=== PATIENT | female | born 1975 | race Caucasian/White ===

== ENCOUNTER → 2019-08-17 12:22 | Outpatient (BNVA) | payer MEDICARE, SELFPAY | PROVIDERS: Family Provider Nurse Practitioner; PCP Nurse Practitioner; Visit Provider Nurse Practitioner | DX: S99.921A Unspecified injury of right foot, initial encounter (principal); W10.8XXA Fall (on) (from) other stairs and steps, initial encounter | CPT/HCPCS: 73630 ==

== ENCOUNTER 2019-10-28 23:24 | Emergency (ER) | payer MEDICARE, SELFPAY ==
[2019-10-28 23:26] VITALS: BP 128/84; PULSE 88; RESP 18; TEMP 37; O2SAT 96; BMI 29.6
--- NOTE | 2019-10-28 23:26 | XR_ITS ---
WS: [id number] XR chest 1V portable [id number] REASON FOR EXAM: CHEST DISCOMFORT FINDINGS: The heart mediastinum were normal. The lung gil are well aerated. No pneumonia, pleural effusion, pulmonary edema, no evidence of pne umothorax. The hilum and apices normal. XR/XR chest 1V portable [id number] IMPRESSION: Negative chest for active pathology.
--- NOTE | 2019-10-28 23:26 | ECG_ITS ---
Measurements Intervals [place] Rate: 78 P: 45 MD: 161 QRS: 48 QRSD: 89 T: 48 QT: 397 QTc: 453 SINUS RHYTHM No previous ECG available for comparison Electronically Signed On 10-29-2019 8:46:09 CDT by Chyna Fisher [email or web address]
--- NOTE | 2019-10-28 23:26 | PC.NURSE ---
PATIENT STATES SHE WAS AT HOME WHEN HER CHEST STARTED TINGLING. PATIENT STATES THAT THIS HASN'T HAPPENED BEFORE. PATIENT STATES THE TINGLING IS BILATERAL ACROSS HER CHEST. PATIENT STATES THAT SHE HAS NO PAIN
--- NOTE | 2019-10-28 23:28 | ED_ITS ---
Entered by Debora Birmingham, acting as scribe for Marialuisa Benjamin HPI - Chest Pain General: Chief Complaint: General Medical Stated Complaint: CHESET TINGLING Time Seen by Provider: 10/28/19 23:26 Source: patient Mode of arrival: EMS ([facility] ) Limitations: no limitations History of Present Illness: HPI narrative: 44 yo f came to the er by [facility] for chest tingling. 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 Pt states that she has been having these episodes where the pain starts in her chest and then it expands. Pt said that she has had 3-4 episodes. Pt said that she was setting at home relaxing. Pt had gotten nauseated but has not had any difficulty breathing and sweats. 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) Timing of current episode: episodic and now resolved Prior episodes: Yes Onset: during rest Pain location: substernal Pain radiation: other (throughout) Quality: other (tingling) Relieving factors: nothing Exacerbating factors: nothing Associated symptoms: Deny abdominal pain, diaphoresis, dyspnea, fever(s), nausea or vomiting Treatment prior to arrival: none Risk Factors: Coronary artery disease risk factors: none Thoracic aortic dissection risk factors: none Related Data: On Oral Contraceptives: No Review of Systems General: Reports: other (negative unless marked) Const: Denies: fever, chills, body aches, fatigue, malaise or diaphoresis Eyes: Denies: change in vision or blurry vision ENMT: Denies: throat pain, painful swallowing, hoarseness, ear pain, ear discharge, Change in hearing or nasal discharge Card: Reports: chest pain Resp: Denies: shortness of breath, productive cough, non-productive cough, wheezing, coughing up blood or chest congestion GI: Denies: abdominal pain, nausea, vomiting, vomiting blood, coffee grounds in vomit, diarrhea, constipation, cramping, blood in stool or black tarry stool : Denies: flank pain, painful urination, urinary frequency, urinary urgency, decreased urine ouput, urinary incontinence or blood in urine Musc: Denies: neck pain, back pain, extremity pain, extremity swelling, joint pain, joint swelling, joint warmth or joint stiffness Skin/Breast: Denies: rash, skin tenderness or yellow skin Neuro: Denies: headache, numbness in extremities, weakness in extremities, changes in sensation, lack of coordination, difficulty walking, dizziness, vertigo or confusion Endo: Denies: excessive thirst, tired all the time, cold intolerance, excessive sweating, flushing or hot flashes Bravo/Lymph: Denies: easy bruising, easy bleeding, petechiae or enlarged lymph nodes All/Imm: Denies: hives, throat swelling, tongue swelling, facial swelling or acute wheezing PFSH ED PFSH: Social History Smoking and tobacco status: current every day smoker cigarettes Physical Exam Const: COMMON NORMALS: no apparent distress, oriented x3, no limitations, healthy appearing and well nourished EXAM LIMITATIONS: no altered mental status GENERAL APPEARANCE: cooperative, well kempt and well developed ORIENTATION/CONSCIOUSNESS: Yes awake HENMT: COMMON NORMALS: normocephalic, head/scalp atraumatic, hearing grossly normal bilaterally, external ears normal, EAC's normal, external nose normal and moist oral mucous membranes HEAD & SCALP: normal to inspection, normocephalic and atraumatic FACE & SINUS: normal facial exam and face symmetric NOSE: external nose normal and nares normal EXTERNAL EAR: Yes external ears normal EXTERNAL AUDITORY CANAL: EAC's normal MOUTH: oral and palatal mucosa normal and tongue normal Eye: COMMON NORMALS: PERRL, EOMs intact bilaterally, conjunctivae normal and no scleral icterus GENERAL EYE: normal appearance of both eyes and normal light reflex CONJUNCTIVA: Yes conjunctivae normal SCLERA: sclerae normal CORNEA: Yes corneas normal PUPIL: Yes PERRL DIRECT OPHTHALMOSCOPY: Yes normal light reflex Neck/C-Spine: COMMON NORMALS: full ROM, no lymphadenopathy, supple, no meningeal signs and no JVD GENERAL: Yes normal visual inspection and Yes t rachea midline CERVICAL SPINE: Yes cervical ROM normal Chest: COMMONS NORMALS: inspection of chest normal and palpation of chest normal Resp: COMMON NORMALS: normal respiratory effort, no retractions, no use of accessory muscles and clear to auscultation bilaterally EFFORT & INSPECTION: Yes able to speak in complete sentences AUSCULTATION: clear to auscultation bilaterally Cardio: COMMON NORMALS: no JVD, regular rate, regular rhythm, S1 normal heart sound, S2 normal heart sound, no gallops, no clicks, no murmurs and no rub JUGULAR VENOUS DISTENTION: no JVD RATE: regular rate RHYTHM: regular rhythm HEART SOUNDS: S1 normal and S2 normal GI: COMMON NORMALS: soft to palpation, non-tender, no hepatosplenomegaly and no masses INSPECTION: Yes normal to inspection PALPATION: Yes soft and Yes no hepatosplenomegaly : COMMON NORMALS: Yes no CVA tenderness BLADDER/KIDNEY EXAM: Yes no CVA t enderness Back/Pelvis: COMMON NORMALS: no CVA tenderness, thoracic and lumbar spine normal to inspection, no thoracic nor lumbar tenderness and thoraco-lumbar ROM normal Extremity: COMMON NORMALS: normal to inspection, full ROM, normal capillary refill, no joint enlargement, no clubbing, cyanosis or edema and no calf tenderness Neuro: COMMON NORMALS: oriented x3, CN's II-XII intact bilaterally, moves all extremities, no focal motor deficits and no sensory deficits noted MENINGEAL SIGNS: Yes no meningeal signs Psych: COMMON NORMALS: mental status grossly normal, thought process normal, cooperative, affect normal, speech normal and activity/motor behavior normal APPEARANCE: Yes well kempt SPEECH: Yes normal speech THOUGHT PROCESS: normal thought process Skin: COMMON NORMALS: no rashes or lesions noted, skin turgor normal, no jaundice, no petechiae and no mottling GENERAL SKIN EXAM: no rashes or lesions noted and turgor normal Course Vital Signs: Vital signs: Vital Signs Temperature 98.6 F 10/28/19 23:26 Pulse Rate 71 10/29/19 02:02 Respiratory Rate 16 10/29/19 02:02 Blood Pressure 115/74 10/29/19 02:02 Pulse Oximetry 95 10/29/19 02:02 MDM - Chest Pain MDM Narrative: Medical decision making narrative: Patient is feeling better and is ready to go home. She has had no further episodes here. I see no sign of stroke, acute coronary syndrome, pneumothorax, infectious etiology or other cause for her symptoms. She does agree to return should her symptoms change or worsen but at this time she is feeling better and she is requesting to be discharged. Lab Data: Attestation: I reviewed the patient's lab results. Labs: Lab Results 10/28/19 10/28/19 10/28/19 Range/Units 23:42 23:42 23:42 WBC 12.6 H (4.0-10.0) 10^3/ uL RBC 4.30 (4.1-5.3) 10^6/u L Hgb 14.3 (11.5-15.3) g/dL Hct 42.9 (37.0-47.0) % MCV 99.8 H (81-99) fL MCH 33.3 (28.0-34.0) pg MCHC 33.3 (30.0-36.0) g/dL RDW 13.4 (12.1-15.1) % Plt Count 278 (130-400) 10^3/c mm MPV 10.4 (7.4-10.4) fL Neut % (Auto) 70.7 % Lymph % (Auto) 20.5 % [place] % (Auto) 7.1 % Eos % (Auto) 0.9 % Baso % (Auto) 0.4 % Neut # (Auto) 8.9 H (1.8-7.7) 10^3/u L Lymph # (Auto) 2.6 (0.8-4.8) 10^3/u L [place] # (Auto) 0.9 (0.2-0.9) 10^3/u L Eos # (Auto) 0.1 (0.0-0.8) 10^3/u L Baso # (Auto) 0.1 (0.0-0.1) 10^3/u L Nucleated RBC % (a uto) 0 % Nucleated RBCs # 0.0 /100WBC Sodium 140 (136-145) mmol/L Potassium 3.5 (3.5-5.1) mmol/L Chloride 105 (98-107) mmol/L Carbon Dioxide 22 (22-29) mmol/L Anion Gap 16.5 (5-19) BUN 6 (6-20) mg/dL Creatinine 0.7 (0.5-0.9) mg/dL GFR Calculation 90.1 (90-130) mL/min Glucose 122 H (65-115) mg/dL Calculated Osmolal ity 287 (285-295) mOsm/k g Calcium 9.7 (8.5-10.5) mg/dL Total Bilirubin 0.2 (0.15-1.2) mg/dL AST 11 (0-32) U/L ALT 11 (0-33) U/L Alkaline Phosphata se 105 (35-105) IU/L Troponin T Baselin e 6 (0-10) ng/mL Troponin T 120 Min [place] (0-10) ng/mL Total Protein 7.5 (6.6-8.7) g/dL Albumin 4.5 (3.5-5.2) g/dL Globulin 3.0 (1.3-4.6) g/dL Lipase 27 (13-60) U/L HCG, Qual (Negative) Urine Opiates Scre en (Negative) ng/mL Ur Barbiturates Sc reen (Negative) ng/mL Ur Phencyclidine S crn (Negative) ng/mL Ur Amphetamines Sc reen (Negative) ng/mL U Benzodiazepines Scrn (Negative) ng/mL Urine Cocaine Scre en (Negative) ng/mL U Marijuana (THC) Screen (Negative) ng/mL Ethyl Alcohol < 10 (0-10) mg/dL 10/28/19 10/29/19 10/29/19 Range/Units 23:42 00:05 01:24 WBC (4.0-10.0) 10^3/ uL RBC (4.1-5.3) 10^6/u L Hgb (11.5-15.3) g/dL Hct (37.0-47.0) % MCV (81-99) fL MCH (28.0-34.0) pg MCHC (30.0-36.0) g/dL RDW (12.1-15.1) % Plt Count (130-400) 10^3/c mm MPV (7.4-10.4) fL Neut % (Auto) % Lymph % (Auto) % [place] % (Auto) % Eos % (Auto) % Baso % (Auto) % Neut # (Auto) (1.8-7.7) 10^3/u L Lymph # (Auto) (0.8-4.8) 10^3/u L [place] # (Auto) (0.2-0.9) 10^3/u L Eos # (Auto) (0.0-0.8) 10^3/u L Baso # (Auto) (0.0-0.1) 10^3/u L Nucleated RBC % (a uto) % Nucleated RBCs # /100WBC Sodium (136-145) mmol/L Potassium (3.5-5.1) mmol/L Chloride (98-107) mmol/L Carbon Dioxide (22-29) mmol/L Anion Gap (5-19) BUN (6-20) mg/dL Creatinine (0.5-0.9) mg/dL GFR Calculation (90-130) mL/min Glucose (65-115) mg/dL Calculated Osmolal ity (285-295) mOsm/k g Calcium (8.5-10.5) mg/dL Total Bilirubin (0.15-1.2) mg/dL AST (0-32) U/L ALT (0-33) U/L Alkaline Phosphata se (35-105) IU/L Troponin T Baselin e (0-10) ng/mL Troponin T 120 Min [place] 6.00 (0-10) ng/mL Total Protein (6.6-8.7) g/dL Albumin (3.5-5.2) g/dL Globulin (1.3-4.6) g/dL Lipase (13-60) U/L HCG, Qual Negative (Negative) Urine Opiates Scre en Negative (Negative) ng/mL Ur Barbiturates Sc reen Negative (Negative) ng/mL Ur Phencyclidine S crn Negative (Negative) ng/mL Ur Amphetamines Sc reen Negative (Negative) ng/mL U Benzodiazepines Scrn Negative (Negative) ng/mL Urine Cocaine Scre en Negative (Negative) ng/mL U Marijuana (THC) Screen Positive H (Negative) ng/mL Ethyl Alcohol (0-10) mg/dL Imaging Data^: CT Head: Radiologist's impression: [address] [address] [address] Scan Report Signed Patient: Amber Alvarez #: [id number] : 1975Acct#:[id number] Age/Sex: 44 / FADM Date: 10/28/19 Loc: ERRoom/Bed: Attending Dr: Ordering Provider/Ordering MD: Marialuisa Benjamin DO Date of Service: 10/28/19 Procedure(s): CT head wo con* [id number] Accession Number(s): [id number] Report Number: [id number] PROCEDURE INFORMATION: Exam: CT Head Without Contrast Exam date and time: 10/28/2019 11:36 PM Age: 44 years old Clinical indication: Pain; Altered mental status/memory loss; Headache not specified; Additional info: [place]/ams TECHNIQUE: Imaging protocol: Computed tomography of the head without contrast. Total DLP: 817.63 mGy-cm Radiation optimization: All CT scans at this facility use at least one of these dose optimization techniques: automated exposure control; mA and/or kV adjustment per patient size (includes targeted exams where dose is matched to clinical indication); or iterative reconstruction. COMPARISON: No relevant prior studies available. FINDINGS: Brain: No acute intracranial hemorrhage or mass effect. No definite acute infarct by CT. MRI could be more sensitive/specific for detection, as clinically directed. Ventricles: Ventricle size is normal for age. Bones/joints: No definite acute skull fracture. Sinuses: Included paranasal sinuses are essentially clear. Mastoid air cells: No significant acute finding. CT/CT head wo con* [id number] IMPRESSION: 1. No acute intracranial hemorrhage or mass effect. 2. No definite acute infarct by CT, see above. 3. Other findings discussed above. Radiation Dose CTDIVOL = (mGy): DLP = 817.63 (mGy-cm) Dictated By:Toy See MD Signed By:Toy Seeigned Date/Time:10/29/19103 DD/ 1 EKG Data^: EKG 1: Attestation: I personally reviewed and interpreted this EKG as follows: EKG interpretation date: 10/29/19 EKG interpretation time: 23:56 Interpretation: Normal sinus rhythm at 78 beats a minute, no acute ST-T wave changes, normal intervals, no blocks. EKG 2: Attestation: I personally reviewed and interpreted this EKG as follows: EKG interpretation date: 10/29/19 EKG interpretation time: 01:24 Interpretation: Normal sinus rhythm at 73 beats a minute, normal intervals, no blocks, no acute ST or T wave changes. Discharge Plan Discharge Patient Disposition: Home, Self-Care Clinical Impression: Paresthesias Chest pain Qualifiers: Chest pain type: unspecified Qualified Code(s): R07.9 - Chest pain, unspecified Condition: Stable Prescriptions: No Action azithromycin 250 mg tablet See Rx Instructions PO .COMPLEX Qty: 6 RF: 0 albuterol sulfate 2.5 mg /3 mL (0.083 %) solution for nebulization 2.5 mg INHALATION Q4H PRN (Reason: shortness of breath or wheezing) Qty: 75 RF: 0 atenolol 50 mg tablet 50 mg PO BID RF: 0 sertraline 100 mg tablet 100 mg PO QAM RF: 0 ezetimibe [Zetia] 10 mg tablet 10 mg PO ONCE RF: 0 gabapentin 100 mg capsule 300 mg PO ONCE RF: 0 atorvastatin 20 mg tablet 20 mg PO ONCE RF: 0 quetiapine 300 mg tablet 600 mg PO DAILY RF: 0 levothyroxine 112 mcg capsule 112 mcg PO ONCE RF: 0 potassium chloride 10 mEq capsule, extended release 10 meq PO ONCE RF: 0 ntjehadeig-hzhjffpewl-pah-cod [id number] mg capsule 1 cap PO Q4H PRNRF: 0 Discharge Orders: Discharge Order (Routine); Ordered 10/29/19 Ordered By: Marialuisa Benjamin Referrals: Karly Stein FNP [Primary Care Provider] - 1-3 days Discharge Diet: Advance as tolerated Discharge Activity: Increase activity as tolerated Patient Instructions: Chest Pain (ED) Activity Restrictions/Additional Instructions: Please return to the ER immediately for any of the signs or symptoms listed on your discharge instruction sheets, worsening/changing of your symptoms, you are not getting better as quickly as expected, or for ANY other cause or concerns. You have been offered further evaluation and care of your chest pain but have declined. If your symptoms change or worsen you are more than welcome to return to the ER at any time for further evaluation and care. Be certain to follow-up with your primary care provider as soon as possible for recheck. Coding Level of Care Code ED Hand Plug Shaper for Chg Fwd Exam Comprehensive The documentation recorded by the Vinnie garcía Stephanie Lyn, accurately reflects the service I personally performed and the decisions made by Sourav aguilar Eli N Oct 28, 2019 23:24
[2019-10-28] MEDS: aspirin 81 mg Chew Tablet 324 MG PO (23:35)
--- NOTE | 2019-10-28 23:35 | CTR_ITS ---
PROCEDURE INFORMATION: Exam: CT Head Without Contrast Exam date and time: 10/28/2019 11:36 PM Age: 44 years old Clinical indication: Pain; Altered mental status/memory loss; Headache not specified; Additional info: [place]/ams TECHNIQUE: Imaging protocol: Computed tomography of the head without contrast. Total DLP: 817.63 mGy-cm Radiation optimization: All CT scans at this facility use at least one of these dose optimization techniques: automated exposure control; mA and/or kV adjustment per patient size (includes targeted exams where dose is matched to clinical indication); or iterative reconstruction. COMPARISON: No relevant prior studies available. FINDINGS: Brain: No acute intracranial hemorrhage or mass effect. No definite acute infarct by CT. MRI could be more sensitive/specific for detection, as clinically directed. Ventricles: Ventricle size is normal for age. Bones/joints: No definite acute skull fracture. Sinuses: Included paranasal sinuses are essentially clear. Mastoid air cells: No significant acute finding. CT/CT head wo con* [id number] IMPRESSION: 1. No acute intracranial hemorrhage or mass effect. 2. No definite acute infarct by CT, see above. 3. Other findings discussed above. Radiation Dose CTDIVOL = (mGy): DLP = 817.63 (mGy-cm)
[2019-10-28] MEDS: sodium chloride 0.9% 500 ML 999 ML IV (23:36)
[2019-10-28 23:46] VITALS: BP 118/76; PULSE 80; RESP 14; O2SAT 97
[2019-10-28 23:48] LABS: Basophils # 0.1 10^3/uL (0.0-0.1); Basophils % 0.4 %; Eosinophils # 0.1 10^3/uL (0.0-0.8); Eosinophils % 0.9 %; Hematocrit 42.9 % (37.0-47.0); Hemoglobin 14.3 g/dL (11.5-15.3); Lymphocytes # 2.6 10^3/uL (0.8-4.8); Lymphocytes % 20.5 %; Mean Corpuscular HGB Conc 33.3 g/dL (30.0-36.0); Mean Corpuscular Hemoglobin 33.3 pg (28.0-34.0); Mean Corpuscular Volume 99.8 fL (81-99); Mean Platelet Volume 10.4 fL (7.4-10.4); Monocytes # 0.9 10^3/uL (0.2-0.9); Monocytes % 7.1 %; Neutrophils # 8.9 10^3/uL (1.8-7.7); Neutrophils % 70.7 %; Nucleated Red Blood Cells % 0 %; Platelet Count 278 10^3/cmm (130-400); Red Cell Distribution Width 13.4 % (12.1-15.1); White Blood Count 12.6 10^3/uL (4.0-10.0)
[2019-10-28 23:59] LABS: HCG, Serum Qual Negative (Negative)
[2019-10-29 00:03] LABS: Alanine Aminotransferase 11 U/L (0-33); Albumin Level 4.5 g/dL (3.5-5.2); Alkaline Phosphatase 105 IU/L (35-105); Anion Gap 16.5 (5-19); Aspartate Amino Transferase 11 U/L (0-32); Blood Urea Nitrogen 6 mg/dL (6-20); Calcium 9.7 mg/dL (8.5-10.5); Carbon Dioxide 22 mmol/L (22-29); Chloride 105 mmol/L (98-107); Glomerular Filtration Rate 90.1 mL/min (90-130); Glucose 122 mg/dL (65-115); Lipase 27 U/L (13-60); Osmolality Calculated 287 mOsm/kg (285-295); Potassium 3.5 mmol/L (3.5-5.1); Sodium 140 mmol/L (136-145); Total Bilirubin 0.2 mg/dL (0.15-1.2); Total Protein 7.5 g/dL (6.6-8.7)
[2019-10-29 00:05] LABS: Alcohol Level < 10 mg/dL (0-10)
[2019-10-29 00:07] LABS: Troponin(5th) Baseline 6 ng/mL (0-10)
[2019-10-29 00:21] VITALS: BP 138/94; PULSE 80; O2SAT 99
[2019-10-29 00:34] LABS: Amphetamines Screen Urine Negative (Negative); Barbiturates Screen Urine Negative (Negative); Benzodiazepines Screen Urine Negative (Negative); Cocaine Screen Urine Negative (Negative); Opiate Screen Urine Negative (Negative); PCP Screen Urine Negative (Negative); THC Screen Urine Positive (Negative)
--- NOTE | 2019-10-29 00:36 | PC.NURSE ---
PATIENT TO CT
[2019-10-29 00:46] VITALS: BP 118/62; PULSE 84; O2SAT 99
[2019-10-29 01:13] VITALS: BP 111/64; PULSE 80; RESP 16; O2SAT 97
--- NOTE | 2019-10-29 01:22 | PC.NURSE ---
EKG done at 0120 and shown to ER doctor
[2019-10-29 01:37] VITALS: BP 123/75; PULSE 84; RESP 15; O2SAT 97
[2019-10-29 02:01] LABS: Troponin 5 2HR Delta 0 ABS# (0-10)
[2019-10-29 02:02] VITALS: BP 115/74; PULSE 71; RESP 16; O2SAT 95
[2019-10-29 02:20] VITALS: BP 102/81; PULSE 90; RESP 15; O2SAT 98
--- NOTE | 2019-10-29 05:26 | ECG_ITS ---
Measurements Intervals [place] Rate: 73 P: 52 [place]: 159 QRS: 72 QRSD: 90 T: 59 QT: 403 QTc: 446 SINUS RHYTHM No previous ECG available for comparison Electronically Signed On 10-29-2019 8:49:51 CDT by Chyna Fisher [email or web address]
== END 2019-10-29 02:25 | disposition home or self-care (01) ==
PROVIDERS: Emergency Provider Emergency Medicine; Family Provider Nurse Practitioner; PCP Nurse Practitioner
DX: R20.2 Paresthesia of skin (principal); R07.9 Chest pain, unspecified; F17.210 Nicotine dependence, cigarettes, uncomplicated
CPT/HCPCS: 12345; 70450; 71045; 80053; 80306; 80307; 83690; 84484; 84703; 85025; 93005; 93010; 99283; 99284; A9270; J7040

== ENCOUNTER 2019-11-08 20:47 | Emergency (ER) | payer MEDICARE, SELFPAY ==
--- NOTE | 2019-11-08 20:54 | XR_ITS ---
WS: [id number] PORTABLE CHEST HISTORY: cp COMPARISON: 10/28/2019 Lungs are clear and well expanded. No pleural effusion or pneumothorax. Cardiac size: Normal. Mediastinum/Aorta: Normal mediastinum. No osseous abnormality seen. XR/XR chest 1V portable [id number] IMPRESSION: Unremarkable portable chest.
[2019-11-08 20:57] VITALS: BP 130/77; PULSE 73; RESP 18; TEMP 36.6; O2SAT 98; BMI 24.7
--- NOTE | 2019-11-08 21:21 | ED_ITS ---
HPI - Chest Pain General: Chief Complaint: Chest Pain Stated Complaint: CHEST TINGLING, L ARM PAIN Time Seen by Provider: 11/08/19 21:20 History of Present Illness: HPI narrative: Patient comes in today with complaints of numbness and tingling in both hands and chest discomfort. Patient admits that she does get anxious and has a symptoms with anxiety. But patient is concerned there may be something else going on. Patient does have a history of bipolar and depression. Patient also has a history of paresthesia due to back problems and previous back injury. Review of Systems General: Reports: 10 or more systems reviewed and unremarkable except in HPI and below Card: Reports: chest pain Neuro: Reports: changes in sensation [facility] ED PFSH: Medical History (Updated 11/08/19 @ 22:43 by HEIDI Parson) Bipolar disorder, current episode hypomanic High risk medication use Hyperlipidemia Hypothyroidism Neuropathy of right sciatic nerve Smoker Tachycardia Social History Smoking and tobacco status: current every day smoker cigarettes Alcohol intake: never History of recent travel: No Female Reproductive History: Date of last menstrual period: 09/13/19 Physical Exam Const: COMMON NORMALS: no apparent distress and oriented x3 GENERAL APPEARANCE: cooperative HENMT: COMMON NORMALS: normocephalic, external ears normal, EAC's normal, TM's normal bilaterally and external nose normal HEAD & SCALP: normal to inspection and normocephalic FACE & SINUS: normal facial exam NOSE: external nose normal GENERAL EAR: hearing not grossly impaired EXTERNAL EAR: Yes external ears normal EXTERNAL AUDITORY CANAL: EAC's normal TYMPANIC MEMBRANE: TM's normal bilaterally MOUTH: oral and palatal mucosa normal THROAT: posterior oropharynx normal Eye: COMMON NORMALS: PERRL and EOMs intact bilaterally PUPIL: Yes PERRL Neck/C-Spine: COMMON NORMALS: full ROM and no lymphadenopathy Lymph: LYMPHATIC: no lymphedema noted Chest: COMMONS NORMALS: inspection of chest normal and palpation of chest normal Resp: COMMON NORMALS: normal respiratory effort and clear to auscultation bilaterally AUSCULTATION: clear to auscultation bilaterally Cardio: COMMON NORMALS: regular rate and regular rhythm RATE: regular rate RHYTHM: regular rhythm GI: COMMON NORMALS: normal to inspection, nondistended, normoactive bowel sounds and non-tender : COMMON NORMALS: Yes no CVA tenderness BLADDER/KIDNEY EXAM: Yes no CVA tenderness Back/Pelvis: COMMON NORMALS: no CVA tenderness and thoracic and lumbar spine normal to inspection Extremity: COMMON NORMALS: normal to inspection GENERAL: No edema Neuro: COMMON NORMALS: oriented x3, moves all extremities and no focal motor deficits Psych: COMMON NORMALS: mental status grossly normal and cooperative Skin: COMMON NORMALS: no rashes or lesions noted GENERAL SKIN EXAM: no rashes or lesions noted Course Vital Signs: Vital signs: Vital Signs Temperature 97.9 F 11/08/19 20:57 Pulse Rate 73 11/08/19 20:57 Respiratory Rate 18 11/08/19 20:57 Blood Pressure 130/77 11/08/19 20:57 Pulse Oximetry 98 11/08/19 20:57 MDM - Chest Pain MDM Narrative: Medical decision making narrative: Patient comes in today for complaints of chest discomfort and numbness in bilateral hands. Patient appears well. Exam notes regular heart rate and normal EKG. Lungs are clear to auscultation. Abdomen soft nontender. Palpation of the vertebral spine is normal without any elicitation of pain or discomfort. Patient has normal range of motion of the neck. No swelling is noted in the extremities. And vital signs are normal. Differential diagnosis includes ACS, anxiety, facet arthropathy, intervertebral disc disease, neuropathy, neuralgia, carpal tunnel syndrome. Laboratory values come back normal without any significance or abnormality. Patient was given a quarter of a milligram of alprazolam with good results for relief of symptoms. Reviewed exam with patient recommended further treatment with behavioral health which patient does have an appointment but is a waiting scheduling due to coronavirus social distancing recommendations. Discussed ways the patient can deal with anxiety including distraction and breathing exercises. Patient reported understanding of care and need for follow-up. Lab Data: Labs: Lab Results 11/08/19 11/08/19 11/08/19 Range/Units 21:08 21:08 21:25 WBC 8.1 (4.0-10.0) 10^3/ uL RBC 4.10 (4.1-5.3) 10^6/u L Hgb 14.0 (11.5-15.3) g/dL Hct 41.8 (37.0-47.0) % MCV 102.0 H (81-99) fL MCH 34.1 H (28.0-34.0) pg MCHC 33.5 (30.0-36.0) g/dL RDW 13.2 (12.1-15.1) % Plt Count 280 (130-400) 10^3/c mm MPV 10.7 H (7.4-10.4) fL Neut % (Auto) 63.4 % Lymph % (Auto) 26.7 % [place] % (Auto) 8.0 % Eos % (Auto) 1.0 % Baso % (Auto) 0.4 % Neut # (Auto) 5.1 (1.8-7.7) 10^3/u L Lymph # (Auto) 2.2 (0.8-4.8) 10^3/u L [place] # (Auto) 0.7 (0.2-0.9) 10^3/u L Eos # (Auto) 0.1 (0.0-0.8) 10^3/u L Baso # (Auto) 0.0 (0.0-0.1) 10^3/u L Nucleated RBC % (a uto) 0 % Nucleated RBCs # 0.0 /100WBC Sodium (136-145) mmol/L Potassium (3.5-5.1) mmol/L Chloride (98-107) mmol/L Carbon Dioxide (22-29) mmol/L Anion Gap (5-19) BUN (6-20) mg/dL Creatinine (0.5-0.9) mg/dL GFR Calculation (90-130) mL/min Glucose (65-115) mg/dL Calculated Osmolal ity (285-295) mOsm/k g Calcium (8.5-10.5) mg/dL Total Bilirubin (0.15-1.2) mg/dL AST (0-32) U/L ALT (0-33) U/L Alkaline Phosphata se (35-105) IU/L Troponin T Baselin e (0-10) ng/mL Total Protein (6.6-8.7) g/dL Albumin (3.5-5.2) g/dL Globulin (1.3-4.6) g/dL Urine Color Yellow (Yellow) Urine Appearance Hazy A (CLEAR) Urine pH 7 (5-7) Ur Specific Gravit y 1.010 (1.005-1.030) Urine Protein Neg (Negative) Urine Glucose (UA) Norm (Normal) Urine Ketones Negative (Negative) Urine Blood 3+ H (Negative) Urine Nitrate Negative (Negative) Urine Bilirubin Neg (NEGATIVE) Urine Urobilinogen Norm (Negative) mg/dL Ur Leukocyte [place] ase Negative (Negative) Urine RBC 0-4 H (0-2) /hpf Urine WBC None (0-5) /hpf Ur Squamous Epith Cells 15-25 H (0-5) Urine Bacteria 1+ H (NONE) Urine Opiates Scre en Negative (Negative) ng/mL Ur Barbiturates Sc reen Positive H (Negative) ng/mL Ur Phencyclidine S crn Negative (Negative) ng/mL Ur Amphetamines Sc reen Negative (Negative) ng/mL U Benzodiazepines Scrn Negative (Negative) ng/mL Urine Cocaine Scre en Negative (Negative) ng/mL U Marijuana (THC) Screen Positive H (Negative) ng/mL 11/08/19 11/08/19 Range/Units 21:25 21:25 WBC (4.0-10.0) 10^3/ uL RBC (4.1-5.3) 10^6/u L Hgb (11.5-15.3) g/dL Hct (37.0-47.0) % MCV (81-99) fL MCH (28.0-34.0) pg MCHC (30.0-36.0) g/dL RDW (12.1-15.1) % Plt Count (130-400) 10^3/c mm MPV (7.4-10.4) fL Neut % (Auto) % Lymph % (Auto) % [place] % (Auto) % Eos % (Auto) % Baso % (Auto) % Neut # (Auto) (1.8-7.7) 10^3/u L Lymph # (Auto) (0.8-4.8) 10^3/u L [place] # (Auto) (0.2-0.9) 10^3/u L Eos # (Auto) (0.0-0.8) 10^3/u L Baso # (Auto) (0.0-0.1) 10^3/u L Nucleated RBC % (a uto) % Nucleated RBCs # /100WBC Sodium 139 (136-145) mmol/L Potassium 4.4 (3.5-5.1) mmol/L Chloride 101 (98-107) mmol/L Carbon Dioxide 25 (22-29) mmol/L Anion Gap 17.4 (5-19) BUN 8 (6-20) mg/dL Creatinine 0.7 (0.5-0.9) mg/dL GFR Calculation 90.1 (90-130) mL/min Glucose 92 (65-115) mg/dL Calculated Osmolal ity 284 L (285-295) mOsm/k g Calcium 9.8 (8.5-10.5) mg/dL Total Bilirubin 0.2 (0.15-1.2) mg/dL AST 17 (0-32) U/L ALT 12 (0-33) U/L Alkaline Phosphata se 98 (35-105) IU/L Troponin T Baselin e 6 (0-10) ng/mL Total Protein 7.4 (6.6-8.7) g/dL Albumin 4.5 (3.5-5.2) g/dL Globulin 2.9 (1.3-4.6) g/dL Urine Color (Yellow) Urine Appearance (CLEAR) Urine pH (5-7) Ur Specific Gravit y (1.005-1.030) Urine Protein (Negative) Urine Glucose (UA) (Normal) Urine Ketones (Negative) Urine Blood (Negative) Urine Nitrate (Negative) Urine Bilirubin (NEGATIVE) Urine Urobilinogen (Negative) mg/dL Ur Leukocyte [place] ase (Negative) Urine RBC (0-2) /hpf Urine WBC (0-5) /hpf Ur Squamous Epith Cells (0-5) Urine Bacteria (NONE) Urine Opiates Scre en (Negative) ng/mL Ur Barbiturates Sc reen (Negative) ng/mL Ur Phencyclidine S crn (Negative) ng/mL Ur Amphetamines Sc reen (Negative) ng/mL U Benzodiazepines Scrn (Negative) ng/mL Urine Cocaine Scre en (Negative) ng/mL U Marijuana (THC) Screen (Negative) ng/mL EKG Data^: EKG 1: Attestation: I personally reviewed and interpreted this EKG as follows: (2110, NSR, regular rate and rhythm 71, without ectopy or ST elevation. wjw) Discharge Plan Discharge Patient Disposition: Home, Self-Care Clinical Impression: Anxiety Condition: Stable Prescriptions: No Action albuterol sulfate 2.5 mg /3 mL (0.083 %) solution for nebulization 2.5 mg INHALATION Q4H PRN (Reason: shortness of breath or wheezing) Qty: 75 RF: 0 atenolol 50 mg tablet 50 mg PO BID RF: 0 sertraline 100 mg tablet 100 mg PO QAM RF: 0 quetiapine 300 mg tablet 600 mg PO DAILY RF: 0 iqmwrggyxk-xrhwpadpsu-dlx-cod [id number] mg capsule 1 cap PO Q4H PRNRF: 0 atorvastatin 20 mg tablet 20 mg PO DAILY RF: 0 ezetimibe [Zetia] 10 mg tablet 10 mg PO DAILY RF: 0 levothyroxine 112 mcg capsule 112 mcg PO DAILY RF: 0 potassium chloride 10 mEq capsule, extended release 10 meq PO DAILY RF: 0 tizanidine 4 mg capsule See Rx Instructions PO TID PRNRF: 0 gabapentin 100 mg capsule 300 mg PO DAILY Qty: 90 RF: 5 Discharge Orders: Discharge Order (Routine); Ordered 11/08/19 Ordered By: Zack Martinez Referrals: Karly Stein FNP [Primary Care Provider] - Discharge Diet: Usual diet Discharge Activity: Increase activity as tolerated Patient Instructions: Anxiety (ED) Activity Restrictions/Additional Instructions: Home and rest Activity as tolerated Follow-up with primary care as needed Return to ER for worsening symptoms or new concerns Coding Level of Care Code ED Smoking Tobacco Packing Machine Hand for Brett Fwveronica Exam Comprehensive
[2019-11-08 21:34] LABS: Basophils % 0.4 %; Eosinophils # 0.1 10^3/uL (0.0-0.8); Hematocrit 41.8 % (37.0-47.0); Lymphocytes # 2.2 10^3/uL (0.8-4.8); Lymphocytes % 26.7 %; Mean Corpuscular HGB Conc 33.5 g/dL (30.0-36.0); Mean Corpuscular Hemoglobin 34.1 pg (28.0-34.0); Mean Platelet Volume 10.7 fL (7.4-10.4); Monocytes # 0.7 10^3/uL (0.2-0.9); Neutrophils # 5.1 10^3/uL (1.8-7.7); Neutrophils % 63.4 %; Nucleated Red Blood Cells % 0 %; Platelet Count 280 10^3/cmm (130-400); Red Cell Distribution Width 13.2 % (12.1-15.1); White Blood Count 8.1 10^3/uL (4.0-10.0)
[2019-11-08] MEDS: ALPRAZolam 0.5 mg Tablet 0.25 MG PO (21:42)
[2019-11-08 21:51] LABS: Troponin(5th) Baseline 6 ng/mL (0-10)
[2019-11-08 21:57] LABS: Albumin Level 4.5 g/dL (3.5-5.2); Alkaline Phosphatase 98 IU/L (35-105); Blood Urea Nitrogen 8 mg/dL (6-20); Calcium 9.8 mg/dL (8.5-10.5); Carbon Dioxide 25 mmol/L (22-29); Chloride 101 mmol/L (98-107); Globulin 2.9 g/dL (1.3-4.6); Glomerular Filtration Rate 90.1 mL/min (90-130); Glucose 92 mg/dL (65-115); Osmolality Calculated 284 mOsm/kg (285-295); Sodium 139 mmol/L (136-145); Total Bilirubin 0.2 mg/dL (0.15-1.2); Total Protein 7.4 g/dL (6.6-8.7)
[2019-11-08 21:58] LABS: Anion Gap 17.4 (5-19); Potassium 4.4 mmol/L (3.5-5.1)
[2019-11-08 21:59] LABS: Alanine Aminotransferase 12 U/L (0-33); Aspartate Amino Transferase 17 U/L (0-32)
[2019-11-08 22:23] LABS: Amphetamines Screen Urine Negative (Negative); Barbiturates Screen Urine Positive (Negative); Benzodiazepines Screen Urine Negative (Negative); Cocaine Screen Urine Negative (Negative); Opiate Screen Urine Negative (Negative); PCP Screen Urine Negative (Negative); THC Screen Urine Positive (Negative)
[2019-11-08 22:40] LABS: Add Urine Microscopic? YES; Bilirubin Urine Neg (NEGATIVE); Blood Urine 3+ (Negative); Glucose Urine UA Norm (Normal); Ketones Urine Negative (Negative); Leukocyte Esterase Urine Negative (Negative); Nitrate Urine Negative (Negative); Protein Urine Neg (Negative); Urine Appearance Hazy (CLEAR); Urine Color Yellow (Yellow); Urobilinogen Urine Norm (Negative); pH Urine 7 (5-7)
[2019-11-08 22:41] LABS: RBC Urine 0-4 /hpf (0-2)
[2019-11-08 22:42] LABS: Add Urine Culture? No; Bacteria Urine 1+; Squamous Epithelial Cell Urine 15-25 (0-5)
[2019-11-08 23:03] VITALS: BP 124/72; PULSE 70; RESP 16; O2SAT 99
== END 2019-11-08 23:03 | disposition home or self-care (01) ==
LOC: ER 11-09 02:09
PROVIDERS: Emergency Medicine; Emergency Provider Nurse Practitioner Family; Family Provider Nurse Practitioner; PCP Nurse Practitioner
DX: F41.9 Anxiety disorder, unspecified (principal); E78.5 Hyperlipidemia, unspecified; E03.9 Hypothyroidism, unspecified; F17.210 Nicotine dependence, cigarettes, uncomplicated
CPT/HCPCS: 12345; 36415; 71045; 80053; 80306; 81001; 84484; 85025; 99282; 99284; A9270

== ENCOUNTER → 2019-12-06 08:35 | Outpatient (BNVA) | payer MEDICARE, SELFPAY | PROVIDERS: Family Provider Nurse Practitioner; PCP Nurse Practitioner; Visit Provider Psychiatry & Neurology Psychiatry | DX: F41.0 Panic disorder [episodic paroxysmal anxiety] (principal); G31.84 Mild cognitive impairment of uncertain or unknown etiology; E53.8 Deficiency of other specified B group vitamins | CPT/HCPCS: 99205 ==

== ENCOUNTER → 2019-12-28 08:21 | Outpatient (BNVA) | payer MEDICARE, SELFPAY | PROVIDERS: Family Provider Nurse Practitioner; PCP Nurse Practitioner; Visit Provider Nurse Practitioner Psychiatric/Mental Health | DX: F41.0 Panic disorder [episodic paroxysmal anxiety] (principal); F17.210 Nicotine dependence, cigarettes, uncomplicated | CPT/HCPCS: 99212 ==

== ENCOUNTER → 2020-01-19 08:07 | Outpatient (BNVA) | payer MEDICARE, SELFPAY | PROVIDERS: Family Provider Nurse Practitioner; PCP Nurse Practitioner; Visit Provider Psychiatry & Neurology Psychiatry | DX: F41.0 Panic disorder [episodic paroxysmal anxiety] (principal) | CPT/HCPCS: G0463 ==

== ENCOUNTER 2020-01-26 15:39 | Emergency (ER) | payer MEDICARE, SELFPAY ==
[2020-01-26 15:47] VITALS: BMI 25.8
[2020-01-26 15:51] VITALS: BP 139/83; PULSE 70; RESP 18; TEMP 36.6; O2SAT 100
--- NOTE | 2020-01-26 15:56 | ED_ITS ---
Documented by User: HEIDI Macias 01/26/20 15:57 HPI - Nausea/Vomiting/Diarrhea General: Chief complaint: Nausea/Vomiting/Diarrhea Stated complaint: n/v/d Time Seen by Provider: 01/26/20 15:55 History of Present Illness: HPI Narrative: Patient believes she has a UTI. She was treated 2 weeks ago for with Macrobid and she said it never really got better. Says nausea and vomiting started last night. Patient is also daily ma rijuana smoker. Says she has had these episodes in the past but she says been about a year so she do not think is marijuana causing it. MD elicited complaint: nausea and vomiting Onset (ago): day(s) (Yesterday) Associated nausea: No Associated abdominal pain: No Severity: mild Context: recent antibiotic use Associated symtoms: Denies anxiety, change in vision, chest pain, headache(s) or nausea Review of Systems Const: Denies: fever(s), chills or body aches Eyes: Denies: change in vision or blurry vision ENMT: Denies: throat pain or nasal congestion Card: Denies: chest pain or dyspnea on exertion Resp: Denies: dyspnea, productive cough or non-productive cough GI: Denies: abdominal pain, nausea or vomiting : Reports: urinary frequency and urinary urgency Musc: Denies: extremity pain Skin/Breast: Denies: rash Neuro: Denies: headache(s) Psych: Denies: anxiety or depression Bravo/Lymph: Denies: easy bruising PFSH ED PFSH: Medical History Bipolar disorder, current episode hypomanic High risk medication use Hyperlipidemia Hypothyroidism Neuropathy of right sciatic nerve Smoker Tachycardia Social History Smoking and tobacco status: current every day smoker cigarettes Alcohol intake: never History of recent travel: No Current gender identity: Female Female Reproductive History: Date of last menstrual period: 09/13/19 Physical Exam Const: COMMON NORMALS: no acute distress, average body habitus and patient oriented x3 HENMT: COMMON NORMALS: normocephalic HEAD & SCALP: normal to inspection and normocephalic FACE & SINUS: normal facial exam Eye: COMMON NORMALS: conjunctivae normal GENERAL EYE: appearance normal, both eyes and all related structures CONJUNCTIVA: Yes conjunctivae normal Neck/C-Spine: COMMON NORMALS: no JVD Chest: COMMONS NORMALS: normal inspection of the chest Resp: COMMON NORMALS: normal respiratory effort and clear to auscultation bilaterally AUSCULTATION: clear to auscultation bilaterally Cardio: COMMON NORMALS: no JVD, regular rate and regular rhythm RATE: regular rate RHYTHM: regular rhythm GI: COMMON NORMALS: Normal to inspection, nondistended, normoactive bowel sounds present Extremity: COMMON NORMALS: normal to inspection and full ROM Neuro: COMMON NORMALS: patient oriented x3 Course Vital Signs: Vital signs: Vital Signs Temperature 97.8 F 01/26/20 15:51 Pulse Rate 71 01/26/20 17:00 Respiratory Rate 17 01/26/20 17:00 Blood Pressure 119/46 01/26/20 17:00 Pulse Oximetry 100 01/26/20 17:00 MDM - Nausea/Vomiting/Diarrhea Lab Data: Labs: Lab Results 01/26/20 01/26/20 01/26/20 Range/Units 16:22 16:27 16:27 WBC 11.9 H (4.0-10.0) 10^3/ uL RBC 4.78 (4.1-5.3) 10^6/u L Hgb 15.7 H (11.5-15.3) g/dL Hct 47.9 H (37.0-47.0) % MCV 100.2 H (81-99) fL MCH 32.8 (28.0-34.0) pg MCHC 32.8 (30.0-36.0) g/dL RDW 12.9 (12.1-15.1) % Plt Count 313 (130-400) 10^3/c mm MPV 10.5 H (7.4-10.4) fL Neut % (Auto) 75.0 % Lymph % (Auto) 15.2 % [place] % (Auto) 8.2 % Eos % (Auto) 0.4 % Baso % (Auto) 0.4 % Neut # (Auto) 8.9 H (1.8-7.7) 10^3/u L Lymph # (Auto) 1.8 (0.8-4.8) 10^3/u L [place] # (Auto) 1.0 H (0.2-0.9) 10^3/u L Eos # (Auto) 0.1 (0.0-0.8) 10^3/u L Baso # (Auto) 0.1 (0.0-0.1) 10^3/u L Nucleated RBC % (a uto) 0 % Nucleated RBCs # 0.0 /100WBC Sodium 140 (136-145) mmol/L Potassium 3.9 (3.5-5.1) mmol/L Chloride 101 (98-107) mmol/L Carbon Dioxide 24 (22-29) mmol/L Anion Gap 18.9 (5-19) BUN 8 (6-20) mg/dL Creatinine 0.6 (0.5-0.9) mg/dL GFR Calculation 107.6 (90-130) mL/min Glucose 104 (65-115) mg/dL Calculated Osmolal ity 286 (285-295) mOsm/k g Calcium 10.2 (8.5-10.5) mg/dL Total Bilirubin 0.3 (0.15-1.2) mg/dL AST 14 (0-32) U/L ALT 15 (0-33) U/L Alkaline Phosphata se 110 H (35-105) IU/L Total Protein 8.1 (6.6-8.7) g/dL Albumin 5.0 (3.5-5.2) g/dL Globulin 3.1 (1.3-4.6) g/dL Lipase 30 (13-60) U/L Urine Color Yellow (Yellow) Urine Appearance Cloudy (CLEAR) Urine pH 6 (5-7) Ur Specific Gravit y 1.025 (1.005-1.030) Urine Protein 1+ H (Negative) Urine Glucose (UA) Norm (Normal) Urine Ketones Negative (Negative) Urine Blood Trace H (Negative) Urine Nitrate Negative (Negative) Urine Bilirubin Neg (NEGATIVE) Urine Urobilinogen Norm (Negative) mg/dL Ur Leukocyte [place] ase Trace H (Negative) Urine RBC Rare (0-2) /hpf Urine WBC 5-10 H (0-5) /hpf Ur Squamous Epith Cells 25-40 H (0-5) Calcium Oxalate Cr ystal 5-10 H /hpf Urine Bacteria 1+ H (NONE) Discharge Plan Discharge Patient Disposition: Home, Self-Care Clinical Impression: Nausea and vomiting Qualifiers: Vomiting type: unspecified Vomiting Intractability: non-intractable Qualified Code(s): R11.2 - Nausea with vomiting, unspecified Condition: Stable Prescriptions: New Zofran 4 mg tablet 4 mg PO BID Qty: 20 RF: 0 No Action albuterol sulfate 2.5 mg /3 mL (0.083 %) solution for nebulization 2.5 mg INHALATION Q4H PRN (Reason: shortness of breath or wheezing) Qty: 75 RF: 0 sertraline [Zoloft] 100 mg tablet 150 mg PO DAILY Qty: 30 RF: 2 cyanocobalamin (vitamin B-12) 1,000 mcg/mL kit 1,000 mcg IM .every 2 weeks 56 Days Qty: 2 RF: 2 cholecalciferol (vitamin D3) [Weekly-D] 1,250 mcg (50,000 unit) capsule 50,000 unit PO .twice per week Qty: 10 RF: 2 alprazolam [Xanax] 2 mg tablet 2 mg PO DAILY PRN (Reason: anxiety) Qty: 30 RF: 0 quetiapine 300 mg tablet 600 mg PO DAILY RF: 0 jxguwajynx-icpaiffrfe-upf-cod [id number] mg capsule 1 cap PO Q4H PRN (Reason: Headache) RF: 0 atorvastatin 20 mg tablet 20 mg PO DAILY RF: 0 ezetimibe [Zetia] 10 mg tablet 10 mg PO DAILY RF: 0 levothyroxine 112 mcg capsule 112 mcg PO DAILY RF: 0 potassium chloride 10 mEq capsule, extended release 10 meq PO DAILY RF: 0 atenolol 50 mg tablet 50 mg PO DAILY RF: 0 tizanidine 4 mg capsule See Rx Instructions .ROUTE .COMPLEX RF: 0 gabapentin 100 mg capsule 300 mg PO DAILY Qty: 90 RF: 5 omeprazole 40 mg Capsule,Delayed Release(Dr/Ec) 40 mg PO DAILY RF: 0 Discharge Orders: Discharge Order (Routine); Ordered 01/26/20 Ordered By: Freddy Webb Referrals: Kayleen Suggs FNP [Primary Care Provider] - Discharge Diet: Regular Discharge Activity: Resume usual activity Patient Instructions: Acute Nausea and Vomiting (ED) Activity Restrictions/Additional Instructions: Call your PCP and schedule an appointment for reevaluation in the next 7 to 10 days. Take Zofran as prescribed to help with nausea. Drink plenty of fluids and stay hydrated. You can take Tylenol or ibuprofen for any fevers or pain. Return to ED if you have any worsening symptoms. FYI-You can have episodes of nausea and vomiting that is induced by smoking cannabis, so cessation of can nabis smoking is the best way to prevent that. Sign Out Sign Out Data: Patient Sign Out occurred on 01/26/20 at 17:05. Patient's care was discussed, and care was transferred from to SHARON Lr. Coding Level of Care Code ED Waxed Bag Machine Operator for Chg Fwd Exam Comprehensive Documented by User: SHARON Lr 01/26/20 17:59 HPI - Nausea/Vomiting/Diarrhea General: Chief complaint: Nausea/Vomiting/Diarrhea Stated complaint: n/v/d Time Seen by Provider: 01/26/20 15:55 [facility] ED PFSH: Medical History Bipolar disorder, current episode hypomanic High risk medication use Hyperlipidemia Hypothyroidism Neuropathy of right sciatic nerve Smoker Tachycardia Social History Smoking and tobacco status: current every day smoker cigarettes Alcohol intake: never History of recent travel: No Current gender identity: Female Course Reevaluation(s): Reevaluation #1: Patient says since she is gotten Zofran here on the unit she has had no episodes of nausea or vomiting. Patient is feeling better. Vital Signs: Vital signs: Vital Signs Temperature 97.8 F 01/26/20 15:51 Pulse Rate 71 01/26/20 17:00 Respiratory Rate 17 01/26/20 17:00 Blood Pressure 119/46 01/26/20 17:00 Pulse Oximetry 100 01/26/20 17:00 MDM - Nausea/Vomiting/Diarrhea MDM Narrative: Medical decision making narrative: I took over patient care from Eliud Akbar's TRANSMITTER OPERATOR. He did the history physical exam and work-up for patient. He handed over patient care to me at 5 PM and informing that lab results were pending. Patient is a 44-year-old female comes to the ED with nausea and vomiting. She is a chronic marijuana smoker. She is not complaining of any pain or fever.. While here in the ED she was given IV fluids and Zofran and her symptoms greatly improved. She had a white blood cell count of 11.9 likely due to her multiple episodes of emesis. And her CMP was unremarkable. Her UA showed some calcium oxalate crystals, but no indications of UTI. Patient was informed about cannabis induced hyperemesis and how cessation of smoking cannabis is the best way to prevent this. This is likely the cause of her acute nausea and vomiting, but it was easily controlled here in the ED with Zofran. Patient was discharged and given a prescription for Zofran to help with nausea. I told her if her symptoms worsen she can return to the ED for reevaluation. Schedule a follow-up appointment with your PCP in 7 to 10 days. Patient understood and agreed with plan. Lab Data: Attestation: I reviewed the patient's lab results. Labs: Lab Results 01/26/20 01/26/20 01/26/20 Range/Units 16:22 16:27 16:27 WBC 11.9 H (4.0-10.0) 10^3/ uL RBC 4.78 (4.1-5.3) 10^6/u L Hgb 15.7 H (11.5-15.3) g/dL Hct 47.9 H (37.0-47.0) % MCV 100.2 H (81-99) fL MCH 32.8 (28.0-34.0) pg MCHC 32.8 (30.0-36.0) g/dL RDW 12.9 (12.1-15.1) % Plt Count 313 (130-400) 10^3/c mm MPV 10.5 H (7.4-10.4) fL Neut % (Auto) 75.0 % Lymph % (Auto) 15.2 % [place] % (Auto) 8.2 % Eos % (Auto) 0.4 % Baso % (Auto) 0.4 % Neut # (Auto) 8.9 H (1.8-7.7) 10^3/u L Lymph # (Auto) 1.8 (0.8-4.8) 10^3/u L [place] # (Auto) 1.0 H (0.2-0.9) 10^3/u L Eos # (Auto) 0.1 (0.0-0.8) 10^3/u L Baso # (Auto) 0.1 (0.0-0.1) 10^3/u L Nucleated RBC % (a uto) 0 % Nucleated RBCs # 0.0 /100WBC Sodium 140 (136-145) mmol/L Potassium 3.9 (3.5-5.1) mmol/L Chloride 101 (98-107) mmol/L Carbon Dioxide 24 (22-29) mmol/L Anion Gap 18.9 (5-19) BUN 8 (6-20) mg/dL Creatinine 0.6 (0.5-0.9) mg/dL GFR Calculation 107.6 (90-130) mL/min Glucose 104 (65-115) mg/dL Calculated Osmolal ity 286 (285-295) mOsm/k g Calcium 10.2 (8.5-10.5) mg/dL Total Bilirubin 0.3 (0.15-1.2) mg/dL AST 14 (0-32) U/L ALT 15 (0-33) U/L Alkaline Phosphata se 110 H (35-105) IU/L Total Protein 8.1 (6.6-8.7) g/dL Albumin 5.0 (3.5-5.2) g/dL Globulin 3.1 (1.3-4.6) g/dL Lipase 30 (13-60) U/L Urine Color Yellow (Yellow) Urine Appearance Cloudy (CLEAR) Urine pH 6 (5-7) Ur Specific Gravit y 1.025 (1.005-1.030) Urine Protein 1+ H (Negative) Urine Glucose (UA) Norm (Normal) Urine Ketones Negative (Negative) Urine Blood Trace H (Negative) Urine Nitrate Negative (Negative) Urine Bilirubin Neg (NEGATIVE) Urine Urobilinogen Norm (Negative) mg/dL Ur Leukocyte [place] ase Trace H (Negative) Urine RBC Rare (0-2) /hpf Urine WBC 5-10 H (0-5) /hpf Ur Squamous Epith Cells 25-40 H (0-5) Calcium Oxalate Cr ystal 5-10 H /hpf Urine Bacteria 1+ H (NONE) Discharge Plan Discharge Patient Disposition: Home, Self-Care Clinical Impression: Nausea and vomiting Qualifiers: Vomiting type: unspecified Vomiting Intractability: non-intractable Qualified Code(s): R11.2 - Nausea with vomiting, unspecified Condition: Stable Prescriptions: New Zofran 4 mg tablet 4 mg PO BID Qty: 20 RF: 0 No Action albuterol sulfate 2.5 mg /3 mL (0.083 %) solution for nebulization 2.5 mg INHALATION Q4H PRN (Reason: shortness of breath or wheezing) Qty: 75 RF: 0 sertraline [Zoloft] 100 mg tablet 150 mg PO DAILY Qty: 30 RF: 2 cyanocobalamin (vitamin B-12) 1,000 mcg/mL kit 1,000 mcg IM .every 2 weeks 56 Days Qty: 2 RF: 2 cholecalciferol (vitamin D3) [Weekly-D] 1,250 mcg (50,000 unit) capsule 50,000 unit PO .twice per week Qty: 10 RF: 2 alprazolam [Xanax] 2 mg tablet 2 mg PO DAILY PRN (Reason: anxiety) Qty: 30 RF: 0 quetiapine 300 mg tablet 600 mg PO DAILY RF: 0 lcwfhjopwa-xruwfwbzqw-zss-cod 59-812-01-30 mg capsule 1 cap PO Q4H PRN (Reason: Headache) RF: 0 atorvastatin 20 mg tablet 20 mg PO DAILY RF: 0 ezetimibe [Zetia] 10 mg tablet 10 mg PO DAILY RF: 0 levothyroxine 112 mcg capsule 112 mcg PO DAILY RF: 0 potassium chloride 10 mEq capsule, extended release 10 meq PO DAILY RF: 0 atenolol 50 mg tablet 50 mg PO DAILY RF: 0 tizanidine 4 mg capsule See Rx Instructions .ROUTE .COMPLEX RF: 0 gabapentin 100 mg capsule 300 mg PO DAILY Qty: 90 RF: 5 omeprazole 40 mg Capsule,Delayed Release(Dr/Ec) 40 mg PO DAILY RF: 0 Discharge Orders: Discharge Order (Routine); Ordered 01/26/20 Ordered By: Freddy Webb Referrals: Kayleen Suggs FNP [Primary Care Provider] - Discharge Diet: Regular Discharge Activity: Resume usual activity Patient Instructions: Acute Nausea and Vomiting (ED) Activity Restrictions/Additional Instructions: Call your PCP and schedule an appointment for reevaluation in the next 7 to 10 days. Take Zofran as prescribed to help with nausea. Drink plenty of fluids and stay hydrated. You can take Tylenol or ibuprofen for any fevers or pain. Return to ED if you have any worsening symptoms. FYI-You can have episodes of nausea and vomiting that is induced by smoking cannabis, so cessation of cannabis smoking is the best way to prevent that. Sign Out Sign Out Data: Patient Sign Out occurred on 01/26/20 at 17:05. Patient's care was discussed, and care was transferred from to SHARON Lr. Coding Level of Care Code ED Waxed Bag Machine Operator for Brett Fwd Exam Comprehensive
[2020-01-26] MEDS: ondansetron 2 mg/ML SDV 2 mL 4 MG IM (16:39)
[2020-01-26] MEDS: sodium chloride 0.9% 1,000 ML 999 ML IV (16:41)
[2020-01-26 16:49] LABS: Alanine Aminotransferase 15 U/L (0-33); Alkaline Phosphatase 110 IU/L (35-105); Anion Gap 18.9 (5-19); Aspartate Amino Transferase 14 U/L (0-32); Blood Urea Nitrogen 8 mg/dL (6-20); Calcium 10.2 mg/dL (8.5-10.5); Carbon Dioxide 24 mmol/L (22-29); Chloride 101 mmol/L (98-107); Creatinine Clr Calc Pharmacy 119.4986; Globulin 3.1 g/dL (1.3-4.6); Glomerular Filtration Rate 107.6 mL/min (90-130); Glucose 104 mg/dL (65-115); Lipase 30 U/L (13-60); Osmolality Calculated 286 mOsm/kg (285-295); Potassium 3.9 mmol/L (3.5-5.1); Sodium 140 mmol/L (136-145); Total Bilirubin 0.3 mg/dL (0.15-1.2); Total Protein 8.1 g/dL (6.6-8.7)
[2020-01-26 17:00] VITALS: BP 119/46; PULSE 71; RESP 17; O2SAT 100
[2020-01-26 17:09] LABS: Bilirubin Urine Neg (NEGATIVE); Blood Urine Trace (Negative); Glucose Urine UA Norm (Normal); Ketones Urine Negative (Negative); Nitrate Urine Negative (Negative); Protein Urine 1+ (Negative); Specific Gravity, Urine 1.025 (1.005-1.030); Urine Appearance Cloudy (CLEAR); Urine Color Yellow (Yellow); pH Urine 6 (5-7)
[2020-01-26 17:10] LABS: Add Urine Culture? No; Add Urine Microscopic? YES; Bacteria Urine 1+; Leukocyte Esterase Urine Trace (Negative); RBC Urine RARE /hpf (0-2); Squamous Epithelial Cell Urine 25-40 (0-5); Urobilinogen Urine Norm (Negative)
[2020-01-26 17:39] LABS: Basophils # 0.1 10^3/uL (0.0-0.1); Basophils % 0.4 %; Eosinophils # 0.1 10^3/uL (0.0-0.8); Eosinophils % 0.4 %; Hematocrit 47.9 % (37.0-47.0); Hemoglobin 15.7 g/dL (11.5-15.3); Lymphocytes # 1.8 10^3/uL (0.8-4.8); Lymphocytes % 15.2 %; Mean Corpuscular HGB Conc 32.8 g/dL (30.0-36.0); Mean Corpuscular Hemoglobin 32.8 pg (28.0-34.0); Mean Corpuscular Volume 100.2 fL (81-99); Mean Platelet Volume 10.5 fL (7.4-10.4); Monocytes % 8.2 %; Neutrophils # 8.9 10^3/uL (1.8-7.7); Nucleated Red Blood Cells % 0 %; Platelet Count 313 10^3/cmm (130-400); Red Blood Count 4.78 10^6/uL (4.1-5.3); Red Cell Distribution Width 12.9 % (12.1-15.1); White Blood Count 11.9 10^3/uL (4.0-10.0)
[2020-01-26 17:59] VITALS: BP 119/46; PULSE 86; RESP 17; O2SAT 98
== END 2020-01-26 18:00 | disposition home or self-care (01) ==
PROVIDERS: Emergency Medicine; Emergency Provider Physician Assistant; PCP Nurse Practitioner Family
DX: R11.2 Nausea with vomiting, unspecified (principal); E78.5 Hyperlipidemia, unspecified; F17.210 Nicotine dependence, cigarettes, uncomplicated
CPT/HCPCS: 12345; 36415; 80053; 81001; 83690; 85025; 96360; 96372; 99283; J2405; J7030

== ENCOUNTER 2020-07-06 07:47 | Emergency (ER) | payer MEDICARE, SELFPAY ==
[2020-07-06] VITALS (8 sets, daily range): BP systolic 132–153; BP diastolic 90–97; PULSE 79–100; RESP 14–20; TEMP 36.4; O2SAT 97–100; BMI 26.6
--- NOTE | 2020-07-06 08:05 | XRR_ITS ---
PROCEDURE INFORMATION: Exam: XR Chest, 1 View Exam date and time: 07/06/2020 8:14 AM Age: 44 years old Clinical indication: Cough and other: Covid pending; Additional info: Cough covid pending. TECHNIQUE: Imaging protocol: XR of the chest Views: Frontal portable upright view of the chest. COMPARISON: CR XR ribs RT mn 3V w [id number] 01/06/2020 10:03 AM FINDINGS: Lungs: The lungs are clear bilaterally. The pulmonary vasculature is normal. Pleural space: No pleural effusion. No pneumothorax. Heart/Mediastinum: The heart is normal in size and contour. Bones/joints: No acute chest wall abnormality identified. XR/XR chest 1V portable [id number] IMPRESSION: No acute cardiopulmonary abnormality identified.
--- NOTE | 2020-07-06 08:10 | CTR_ITS ---
PROCEDURE INFORMATION: Exam: CT Angiography Chest With Contrast Exam date and time: 07/06/2020 8:14 AM Age: 44 years old Clinical indication: Nausea and vomiting; Abdominal pain; Generalized; Cough and other: Possible covid; Chest pain; Type not specified; Additional info: Dyspnea/cough TECHNIQUE: Imaging protocol: Computed tomographic angiography of the chest with intravenous contrast. 3D rendering (Not supervised by radiologist): MIP reconstructed images were created by the technologist. Radiation optimization: All CT scans at this facility use at least one of these dose optimization techniques: automated exposure control; mA and/or kV adjustment per patient size (includes targeted exams where dose is matched to clinical indication); or iterative reconstruction. Contrast material: OMNI 350; Contrast volume: 95 ml; Contrast route: INTRAVENOUS (IV); COMPARISON: CR (CHEST, ) 07/06/2020 8:11 AM RADIATION DOSE METRICS: Total DLP (mGy-cm): 1263.15 FINDINGS: Pulmonary arteries: Normal. No pulmonary emboli. Aorta: Mild aortic arch atherosclerotic calcification without ectasia. Lungs: Unremarkable. No consolidation. No masses. Pleural space: No pneumothorax. No pleural effusion. Heart: Normal. No pericardial effusion. Mediastinal space: Right hilar granulomatous hi calcifications are present. Lymph nodes: Noncalcified right hilar lymph node measuring 7 mm short axis. Bones/joints: Degenerative disk disease is present at mid-thoracic spine disk levels. Moderate T5-6 spondylosis, T5 level ossification of the posterior longitudinal ligament. Mild chronic T9 vertebral body compression deformity. Soft tissues: Unremarkable. IMPRESSION: 1. No pulmonary embolism identified. 2. No thoracic aortic aneurysm or dissection identified. 3. No findings suggestive of COVID-19 pneumonitis. 4. Please see the abdomen/pelvis CT report of the same date for additional findings. PROCEDURE INFORMATION: Exam: CT Abdomen And Pelvis With Contrast Exam date and time: 07/06/2020 8:14 AM Age: 44 years old Clinical indication: Nausea and vomiting; Abdominal pain; Generalized; Cough and other: Possible covid; Chest pain; Type not specified; Additional info: Dyspnea/cough TECHNIQUE: Imaging protocol: Computed tomography of the abdomen and pelvis with intravenous contrast. Radiation optimization: All CT scans at this facility use at least one of these dose optimization techniques: automated exposure control; mA and/or kV adjustment per patient size (includes targeted exams where dose is matched to clinical indication); or iterative reconstruction. Contrast material: OMNI 350; Contrast volume: 95 ml; Contrast route: INTRAVENOUS (IV); COMPARISON: CR (CHEST, ) 07/06/2020 8:11 AM RADIATION DOSE METRICS: Total DLP (mGy-cm): 1263.15 FINDINGS: Liver: Mild diffuse hypoattenuation of the liver is present consistent with hepatic steatosis. Gallbladder and bile ducts: Normal. No calcified stones. No ductal dilation. Pancreas: Normal. No ductal dilation. Spleen: The spleen demonstrates several small calcifications consistent with healed granulomatous disease. Adrenal glands: 18.9 x 13.4 x 20.8 mm left adrenal nodule. Kidneys and ureters: Normal. No hydronephrosis. Stomach and bowel: Unremarkable. No obstruction. No mucosal thickening. Appendix: The vermiform appendix is normal. Intraperitoneal space: Unremarkable. No free air. No significant fluid collection. Vasculature: Unremarkable. No abdominal aortic aneurysm. Lymph nodes: No enlarged lymph nodes. Urinary bladder: Unremarkable as visualized. Reproductive: Left ovarian 12.5 mm physiologic follicle. Bones/joints: Unremarkable. No acute fracture. Soft tissues: Unremarkable. CT/CT angio chest w abd pel w con IMPRESSION: 1. No abdominal aortic aneurysm or dissection identified. 2. Left adrenal nodule. Recommend further evaluation with precontrast CT, or MRI. 3. Mild fatty infiltration of the liver. 4. Please see the CTA chest report of the same date for additional findings. Radiation Dose CTDIVOL = (mGy): DLP = 1263.15~1263.15 (mGy-cm)
[2020-07-06 08:11] LABS: Basophils % 0.3 %; Eosinophils % 0.2 %; Hematocrit 49.3 % (37.0-47.0); Hemoglobin 16.8 g/dL (11.5-15.3); Lymphocytes # 1.9 10^3/uL (0.8-4.8); Lymphocytes % 16.4 %; Mean Corpuscular HGB Conc 34.1 g/dL (30.0-36.0); Mean Corpuscular Volume 93.9 fL (81-99); Mean Platelet Volume 11.2 fL (7.4-10.4); Monocytes # 0.8 10^3/uL (0.2-0.9); Neutrophils # 8.67 10^3/uL (1.8-7.7); Neutrophils % 75.4 %; Nucleated Red Blood Cells % 0 %; Platelet Count 282 10^3/cmm (130-400); Red Blood Count 5.25 10^6/uL (4.1-5.3); Red Cell Distribution Width 13.3 % (12.1-15.1); White Blood Count 11.5 10^3/uL (4.0-10.0)
--- NOTE | 2020-07-06 08:12 | ED_ITS ---
HPI - COVID General: Chief Complaint: Nausea/Vomiting/Diarrhea Stated Complaint: Fever, n/v, body aches, dehydrated Time Seen by Provider: 07/06/20 07:49 Triage information: No fever, cough or shortness of breath . No known COVID + exposure last 14 days History of Present Illness: HPI Narrative: 44-year-old female comes in complaining of fever nausea vomiting body aches also having some abdominal pain and dysuria. She has COPD or chronic baseline cough is largely unchanged. She denies any hematochezia melena hematemesis or coffee-ground she also had alteration in taste over the last week. No coffee-ground emesis hematemesis no hematochezia. MD complaint: has COVID symptoms Prior covid testing: no COVID 19 common symptoms: positive fever(s), chills, cough, non-productive cough, dyspnea, fatigue, body aches, headache(s), loss of sense of smell and/or taste, nasal congestion, nausea, vomiting and diarrhea COVID 19 other sytmptoms: negative chest pain or requiring oxygen Onset (ago): hour(s) Severity: moderate Pertinent comorbid conditions: hypertension, COPD/respiratory disease and tobacco use/smoking Treatment prior to arrival: none COVID Results: SARS-CoV-2 Antigen (Rapid) Negative (Negative) 07/06/20 08:55 07/06/20 Review of Systems Const: Reports: fever(s), body aches and fatigue ENMT: Reports: nasal congestion Card: Denies: chest pain, edema, dyspnea on exertion or orthopnea Resp: Reports: dyspnea and non-productive cough GI: Reports: nausea, vomiting and diarrhea : Denies: flank pain, difficulty voiding, dysuria, urinary frequency or urinary urgency Skin/Breast: Denies: rash or pruritus Neuro: Reports: headache(s) PFSH ED PFSH: Medical History (Updated 07/06/20 @ 09:59 by Aime Whitney DO) Bipolar disorder, current episode hypomanic High risk medication use Hyperlipidemia Hypothyroidism Neuropathy of right sciatic nerve Smoker Tachycardia Social History Smoking and tobacco status: current every day smoker cigarettes Alcohol intake: never History of recent travel: No Current gender identity: Female Female Reproductive History: Date of last menstrual period: 09/13/19 Physical Exam Const: COMMON NORMALS: no acute distress GENERAL APPEARANCE: cooperative and comfortable ORIENTATION/CONSCIOUSNESS: Yes awake, Yes oriented to person, Yes oriented to place and Yes oriented to time HENMT: COMMON NORMALS: normocephalic, atraumatic and hearing grossly normal bilaterally HEAD & SCALP: normocephalic and atraumatic Neck/C-Spine: COMMON NORMALS: no JVD Resp: COMMON NORMALS: normal respiratory effort, No retractions, No use of accessory muscles and clear to auscultation bilaterally AUSCULTATION: clear to auscultation bilaterally and diminished lung sounds Cardio: COMMON NORMALS: no JVD, regular rate, regular rhythm and No murmurs present (Cardio) RATE: regular rate RHYTHM: regular rhythm GI: COMMON NORMALS: Soft to palpation and No hepatosplenomegaly present AUSCULTATION: Yes normoactive bowel sounds PALPATION: Yes Soft to palpation, Yes Tenderness to palpation present (GI) (epigastric), No Guarding due to palpation present (GI) and Yes No hepatosplenomegaly present Extremity: COMMON NORMALS: normal to inspection, capillary refill normal, no clubbing, cyanosis or edema, no calf tenderness and no pedal edema Neuro: SENSORIUM/ORIENTATION: Yes oriented to person, Yes oriented to place and Yes oriented to time Skin: COMMON NORMALS: no rashes or lesions noted GENERAL SKIN EXAM: no rashes or lesions noted Course Vital Signs: Vital signs: Vital Signs Temperature 97.6 F 07/06/20 07:51 Pulse Rate 85 07/06/20 10:07 Respiratory Rate 20 H 07/06/20 10:07 Blood Pressure 135/90 07/06/20 10:07 Pulse Oximetry 98 07/06/20 10:07 MDM - COVID MDM Narrative: Medical decision making narrative: Tolerated p.o. well we will go ahead and discharge home she has oral potassium at home she also was able to take oral potassium here Phenergan has helped quite a bit. We will give her oral Phenergan to use at home clear liquid diet for 48 hours and advance as tolerated return if has further problems. CT chest and abdomen are negative Covid swab negative Lab Data: Labs: Lab Results 07/06/20 07/06/20 07/06/20 Range/Units 08:00 08:00 08:00 WBC 11.5 H (4.0-10.0) 10^3/ uL RBC 5.25 (4.1-5.3) 10^6/u L Hgb 16.8 H (11.5-15.3) g/dL Hct 49.3 H (37.0-47.0) % MCV 93.9 (81-99) fL MCH 32.0 (28.0-34.0) pg MCHC 34.1 (30.0-36.0) g/dL RDW 13.3 (12.1-15.1) % Plt Count 282 (130-400) 10^3/c mm MPV 11.2 H (7.4-10.4) fL Neut % (Auto) 75.4 % Lymph % (Auto) 16.4 % [place] % (Auto) 7.0 % Eos % (Auto) 0.2 % Baso % (Auto) 0.3 % Neut # (Auto) 8.67 H (1.8-7.7) 10^3/u L Lymph # (Auto) 1.9 (0.8-4.8) 10^3/u L [place] # (Auto) 0.8 (0.2-0.9) 10^3/u L Eos # (Auto) 0.0 (0.0-0.8) 10^3/u L Baso # (Auto) 0.0 (0.0-0.1) 10^3/u L Nucleated RBC % (a uto) 0 % Nucleated RBCs # 0.0 /100WBC D-Dimer 0.74 H (0-0.59) ug/mIFE U Sodium Cancelled Potassium Cancelled Chloride Cancelled Carbon Dioxide Cancelled Anion Gap Cancelled BUN Cancelled Creatinine Cancelled GFR Calculation Cancelled Glucose Cancelled Calculated Osmolal ity Cancelled Lactic Acid (0.5-2.2) mmol/L Calcium Cancelled Total Bilirubin Cancelled AST Cancelled ALT Cancelled Alkaline Phosphata se Cancelled Creatine Kinase Cancelled C-Reactive Protein Cancelled Total Protein Cancelled Albumin Cancelled Globulin Cancelled Lipase Cancelled Urine Color (Yellow) Urine Appearance (CLEAR) Urine pH (5-7) Ur Specific Gravit y (1.005-1.030) Urine Protein (Negative) Urine Glucose (UA) (Normal) Urine Ketones (Negative) Urine Blood (Negative) Urine Nitrate (Negative) Urine Bilirubin (Negative) Prot Sulfosalicyli c Acd (Negative) Urine Urobilinogen (Negative) mg/dL Ur Leukocyte [place] ase (Negative) Urine RBC (0-2) /hpf Urine WBC (0-5) /hpf Ur Squamous Epith Cells (0-5) /hpf Amorphous Sediment Urine Bacteria (NONE) /hpf SARS-CoV-2 Ag (Rap id) (Negative) 07/06/20 07/06/20 07/06/20 Range/Units 08:40 08:40 08:55 WBC (4.0-10.0) 10^3/ uL RBC (4.1-5.3) 10^6/u L Hgb (11.5-15.3) g/dL Hct (37.0-47.0) % MCV (81-99) fL MCH (28.0-34.0) pg MCHC (30.0-36.0) g/dL RDW (12.1-15.1) % Plt Count (130-400) 10^3/c mm MPV (7.4-10.4) fL Neut % (Auto) % Lymph % (Auto) % [place] % (Auto) % Eos % (Auto) % Baso % (Auto) % Neut # (Auto) (1.8-7.7) 10^3/u L Lymph # (Auto) (0.8-4.8) 10^3/u L [place] # (Auto) (0.2-0.9) 10^3/u L Eos # (Auto) (0.0-0.8) 10^3/u L Baso # (Auto) (0.0-0.1) 10^3/u L Nucleated RBC % (a uto) % Nucleated RBCs # /100WBC D-Dimer (0-0.59) ug/mIFE U Sodium 140 Potassium 3.3 L Chloride 102 Carbon Dioxide 20 L Anion Gap 21.3 H BUN 17 Creatinine 0.7 GFR Calculation 90.1 Glucose 111 Calculated Osmolal ity 292 Lactic Acid 3.0 H (0.5-2.2) mmol/L Calcium 10.0 Total Bilirubin 0.4 AST 12 ALT 12 Alkaline Phosphata se 120 H Creatine Kinase 84 C-Reactive Protein 2.5 Total Protein 8.5 Albumin 5.1 Globulin 3.4 Lipase 24 Urine Color Yellow (Yellow) Urine Appearance Clear (CLEAR) Urine pH 8 H (5-7) Ur Specific Gravit y 1.005 (1.005-1.030) Urine Protein 1+ H (Negative) Urine Glucose (UA) Norm (Normal) Urine Ketones Negative (Negative) Urine Blood Neg (Negative) Urine Nitrate Negative (Negative) Urine Bilirubin Neg (Negative) Prot Sulfosalicyli c Acd Negative (Negative) Urine Urobilinogen Norm (Negative) mg/dL Ur Leukocyte [place] ase Negative (Negative) Urine RBC None (0-2) /hpf Urine WBC None (0-5) /hpf Ur Squamous Epith Cells 0-4 H (0-5) /hpf Amorphous Sediment Not Reportable Urine Bacteria Trace (NONE) /hpf SARS-CoV-2 Ag (Rap id) (Negative) 07/06/20 Range/Units 08:55 WBC (4.0-10.0) 10^3/ uL RBC (4.1-5.3) 10^6/u L Hgb (11.5-15.3) g/dL Hct (37.0-47.0) % MCV (81-99) fL MCH (28.0-34.0) pg MCHC (30.0-36.0) g/dL RDW (12.1-15.1) % Plt Count (130-400) 10^3/c mm MPV (7.4-10.4) fL Neut % (Auto) % Lymph % (Auto) % [place] % (Auto) % Eos % (Auto) % Baso % (Auto) % Neut # (Auto) (1.8-7.7) 10^3/u L Lymph # (Auto) (0.8-4.8) 10^3/u L [place] # (Auto) (0.2-0.9) 10^3/u L Eos # (Auto) (0.0-0.8) 10^3/u L Baso # (Auto) (0.0-0.1) 10^3/u L Nucleated RBC % (a uto) % Nucleated RBCs # /100WBC D-Dimer (0-0.59) ug/mIFE U Sodium Potassium Chloride Carbon Dioxide Anion Gap BUN Creatinine GFR Calculation Glucose Calculated Osmolal ity Lactic Acid (0.5-2.2) mmol/L Calcium Total Bilirubin AST ALT Alkaline Phosphata se Creatine Kinase C-Reactive Protein Total Protein Albumin Globulin Lipase Urine Color (Yellow) Urine Appearance (CLEAR) Urine pH (5-7) Ur Specific Gravit y (1.005-1.030) Urine Protein (Negative) Urine Glucose (UA) (Normal) Urine Ketones (Negative) Urine Blood (Negative) Urine Nitrate (Negative) Urine Bilirubin (Negative) Prot Sulfosalicyli c Acd (Negative) Urine Urobilinogen (Negative) mg/dL Ur Leukocyte [place] ase (Negative) Urine RBC (0-2) /hpf Urine WBC (0-5) /hpf Ur Squamous Epith Cells (0-5) /hpf Amorphous Sediment Urine Bacteria (NONE) /hpf SARS-CoV-2 Ag (Rap id) Negative (Negative) COVID Results: SARS-CoV-2 Antigen (Rapid) Negative (Negative) 07/06/20 08:55 07/06/20 Discharge Plan Discharge Patient Disposition: Home Clinical Impression: Gastroenteritis, Nausea & vomiting Condition: Stable Prescriptions: New promethazine 25 mg tablet 25 mg PO Q6H PRN (Reason: nausea and vomiting) Qty: 20 RF: 0 No Action albuterol sulfate 2.5 mg /3 mL (0.083 %) solution for nebulization 2.5 mg INHALATION Q4H PRN (Reason: shortness of breath or wheezing) Qty: 75 RF: 0 sertraline [Zoloft] 100 mg tablet 150 mg PO DAILY Qty: 30 RF: 2 cyanocobalamin (vitamin B-12) 1,000 mcg/mL kit 1,000 mcg IM .every 2 weeks 56 Days Qty: 2 RF: 2 cholecalciferol (vitamin D3) [Weekly-D] 1,250 mcg (50,000 unit) capsule 50,000 unit PO .twice per week Qty: 10 RF: 2 alprazolam [Xanax] 2 mg tablet 2 mg PO DAILY PRN (Reason: anxiety) Qty: 30 RF: 0 quetiapine 300 mg tablet 600 mg PO DAILY RF: 0 napwtkhvhb-fztvljqvgh-upw-cod [id number] mg capsule 1 cap PO Q4H PRN (Reason: Headache) RF: 0 atorvastatin 20 mg tablet 20 mg PO DAILY RF: 0 ezetimibe [Zetia] 10 mg tablet 10 mg PO DAILY RF: 0 levothyroxine 112 mcg capsule 112 mcg PO DAILY RF: 0 potassium chloride 10 mEq capsule, extended release 10 meq PO DAILY RF: 0 atenolol 50 mg tablet 50 mg PO DAILY RF: 0 tizanidine 4 mg capsule See Rx Instructions .ROUTE .COMPLEX RF: 0 gabapentin 100 mg capsule 300 mg PO DAILY Qty: 90 RF: 5 omeprazole 40 mg Capsule,Delayed Release(Dr/Ec) 40 mg PO DAILY RF: 0 Zofran 4 mg tablet 4 mg PO BID Qty: 20 RF: 0 Discharge Orders: Discharge Order (Routine); Ordered 07/06/20 Ordered By: Aime Whitney Referrals: Kayleen Suggs FNP [Primary Care Provider] - Discharge Diet: Clear Liquid Discharge Activity: Increase activity as tolerated Patient Instructions: Clear Liquid Diet (ED) Coding Level of Care Code ED It Quality Analyst for [place] Fwd Exam Comprehensive
[2020-07-06] MEDS: promethazine 25 mg/mL SDV 1 mL IM (08:20)
[2020-07-06] MEDS: sodium chloride 0.9% 1,000 ML 999 ML IV ×2 (08:20→09:44)
[2020-07-06 08:25] LABS: D Dimer 0.74 ug/mIFEU (0-0.59)
--- NOTE | 2020-07-06 08:43 | PC.NURSE ---
Pt to CT
[2020-07-06 09:12] LABS: Alanine Aminotransferase 12 U/L (0-33); Albumin Level 5.1 g/dL (3.5-5.2); Alkaline Phosphatase 120 IU/L (35-105); Anion Gap 21.3 (5-19); Aspartate Amino Transferase 12 U/L (0-32); Blood Urea Nitrogen 17 mg/dL (6-20); C Reactive Protein 2.5 mg/L (0.0-4.9); Carbon Dioxide 20 mmol/L (22-29); Chloride 102 mmol/L (98-107); Creatine Phosphokinase 84 U/L (26-192); Globulin 3.4 g/dL (1.3-4.6); Glomerular Filtration Rate 90.1 mL/min (90-130); Glucose 111 mg/dL (65-115); Lipase 24 U/L (13-60); Osmolality Calculated 292 mOsm/kg (285-295); Potassium 3.3 mmol/L (3.5-5.1); Sodium 140 mmol/L (136-145); Total Bilirubin 0.4 mg/dL (0.15-1.2); Total Protein 8.5 g/dL (6.6-8.7)
[2020-07-06] MEDS: iohexol 350 mg/mL 100 mL Btl IV (09:13)
[2020-07-06 09:24] LABS: Add Urine Microscopic? YES; Bilirubin Urine Neg (Negative); Blood Urine Neg (Negative); Glucose Urine UA Norm (Normal); Ketones Urine Negative (Negative); Leukocyte Esterase Urine Negative (Negative); Nitrate Urine Negative (Negative); Protein Urine 1+ (Negative); Specific Gravity, Urine 1.005 (1.005-1.030); Sulfosalicylic Acid Urine Negative (Negative); Urine Appearance Clear (CLEAR); Urine Color Yellow (Yellow); Urobilinogen Urine Norm (Negative); pH Urine 8 (5-7)
[2020-07-06 09:28] LABS: Add Urine Culture? No; Bacteria Urine TRACE /hpf; Squamous Epithelial Cell Urine 0-4 /hpf (0-5)
[2020-07-06 09:39] LABS: SARS Covid-2 Antigen Negative (Negative)
[2020-07-06] MEDS: lidocaine 1% 5 ML in potassium chloride premix 100 ML 25 ML IV (09:44)
--- NOTE | 2020-07-06 09:50 | PC.NURSE ---
Rounded on pt, pt resting with eyes closed, call light in reach, no needs.
--- NOTE | 2020-07-06 10:12 | PC.NURSE ---
Did PO challenge for pt with water. Pt tolerated well.
[2020-07-06] MEDS: potassium chloride ER 20 mEq Tablet 40 MEQ PO (10:15)
[2020-07-06 10:37] LABS: Reflex Lactate Order REFLEX LACTIC ORDERD
== END 2020-07-06 10:52 | disposition home or self-care (01) ==
PROVIDERS: Emergency Provider Family Medicine; PCP Nurse Practitioner Family
DX: K52.9 Noninfective gastroenteritis and colitis, unspecified (principal); E78.5 Hyperlipidemia, unspecified; F17.210 Nicotine dependence, cigarettes, uncomplicated
CPT/HCPCS: 12345; 36415; 51701; 71045; 71275; 74177; 80053; 81001; 82550; 83605; 83690; 85025; 85378; 86140; 87040; 87426; 96361; 96365; 96372; 99283; 99284; J2550; J3480; J7030; Q9967

== ENCOUNTER 2020-08-20 11:17 | Emergency (ER) | payer MEDICARE, SELFPAY ==
[2020-08-20] VITALS (7 sets, daily range): BP systolic 96–123; BP diastolic 55–77; PULSE 74–90; RESP 16–19; TEMP 36.5; O2SAT 94–100; BMI 26.6
--- NOTE | 2020-08-20 11:28 | XRR_ITS ---
PROCEDURE INFORMATION: Exam: XR Chest, 1 View Exam date and time: 08/20/2020 11:33 AM Age: 45 years old Clinical indication: Cough and fever; Additional info: Fever cough copd covid SX TECHNIQUE: Imaging protocol: XR of the chest Views: Frontal portable upright view of the chest. COMPARISON: CR (CHEST, ) 07/06/2020 8:11 AM FINDINGS: Tubes, catheters and devices: EKG leads are present overlying the chest. Lungs: The lungs are clear bilaterally. The pulmonary vasculature is normal. Pleural space: No pleural effusion. No pneumothorax. Heart/Mediastinum: The heart is normal in size and contour. Mediastinum: Stable. Bones/joints: Stable. XR/XR chest 1V portable [id number] IMPRESSION: No acute cardiopulmonary abnormality identified.
--- NOTE | 2020-08-20 11:28 | ECG_ITS ---
[facility] Test Date: 2020-08-20 Pat Name: Amber Alvarez Department: Room: Gender: Female Online Communications Specialist: : [id number] Requested By: Davide aRjan Order Number: [id number] Kelsey MD: Sarah Martini M.D. Measurements Intervals [place] Rate: 76 P: 53 KS: 161 QRS: 58 QRSD: 81 T: 45 QT: 405 QTc: 457 Interpretive Statements SINUS RHYTHM Compared to ECG 10/29/2019 01:24:46 No significant changes Electronically Signed On 08-21-2020 17:25:44 EXHIBIT DESIGNER by Sarah Martini M.D. [id number]
[2020-08-20 11:40] LABS: Basophils # 0.1 10^3/uL (0.0-0.1); Basophils % 0.4 %; Eosinophils # 0.2 10^3/uL (0.0-0.8); Eosinophils % 1.2 %; Hematocrit 45.8 % (37.0-47.0); Hemoglobin 14.8 g/dL (11.5-15.3); Lymphocytes # 3.6 10^3/uL (0.8-4.8); Lymphocytes % 25.7 %; Mean Corpuscular HGB Conc 32.3 g/dL (30.0-36.0); Mean Corpuscular Hemoglobin 31.8 pg (28.0-34.0); Mean Corpuscular Volume 98.3 fL (81-99); Mean Platelet Volume 10.5 fL (7.4-10.4); Monocytes # 1.1 10^3/uL (0.2-0.9); Monocytes % 7.6 %; Neutrophils # 8.95 10^3/uL (1.8-7.7); Neutrophils % 64.5 %; Nucleated Red Blood Cells % 0 %; Platelet Count 303 10^3/cmm (130-400); Red Blood Count 4.66 10^6/uL (4.1-5.3); Red Cell Distribution Width 13.4 % (12.1-15.1); White Blood Count 13.9 10^3/uL (4.0-10.0)
[2020-08-20] MEDS: sodium chloride 0.9% 1,000 ML 150 ML IV (11:51)
[2020-08-20] MEDS: acetaminophen 325 mg Tablet 650 MG PO (11:51)
--- NOTE | 2020-08-20 11:59 | ED_ITS ---
HPI - COVID General: Chief Complaint: COVID symptoms Stated Complaint: SOB/low oxygen/fever Time Seen by Provider: 08/20/20 11:22 Triage information: Has fever, cough or shortness of breath . No known COVID + exposure last 14 days History of Present Illness: HPI Narrative: The patient is a 45-year-old female with past medical history of COPD who comes to the ER complaining of 1 week of low-grade fever, and shortness of breath which is increasing. She says she always has a cough but her cough is worse today. She says she tested negative for Covid less than a month ago. MD complaint: has COVID symptoms Prior covid testing: no COVID 19 common symptoms: positive fever(s), chills, cough, non-productive cough , dyspnea and fatigue; negative throat pain, nasal congestion or diarrhea COVID 19 other sytmptoms: negative chest pain, requiring oxygen, respiratory distress, cyanosis, lethargy or confusion Onset (ago): day(s) (7) Severity: mild Pertinent comorbid conditions: COPD/respiratory disease Treatment prior to arrival: none COVID Results: SARS-CoV-2 Antigen (Rapid) Negative (Negative) 08/20/20 11:48 08/20/20 Review of Systems General: Reports: 10 or more systems reviewed and unremarkable except in HPI and below Const: Reports: fever(s), chills and fatigue Eyes: Denies: change in vision, blurry vision or eye redness ENMT: Denies: throat pain, swelling of lips/tongue, ear or mastoid pain or nasal congestion Card: Denies: chest pain Resp: Reports: dyspnea, non-productive cough and wheezing GI: Denies: abdominal pain, diarrhea or GI cramping : Denies: flank pain, difficulty voiding, urinary frequency or urinary urgency Musc: Denies: neck pain, back pain, extremity pain, joint pain, joint redness, limited range of motion or muscle weakness Skin/Breast: Denies: rash, pruritus, erythema, skin pain or skin tenderness Neuro: Denies: confusion Psych: Denies: anxiety or depression Endo: Denies: polyuria All/Imm: Denies: urticaria, throat swelling or tongue swelling PFS ED PFSH: Medical History (Updated 08/20/20 @ 15:18 by Davide Rajan MD) Bipolar disorder, current episode hypomanic High risk medication use Hyperlipidemia Hypothyroidism Neuropathy of right sciatic nerve Smoker Tachycardia Social History Smoking and tobacco status: current every day smoker cigarettes Alcohol intake: never History of recent travel: No Current gender identity: Female Female Reproductive History: Date of last menstrual period: 09/13/19 Physical Exam Const: COMMON NORMALS: no acute distress, average body habitus, patient oriented x3, no limitations, healthy appearing, alert and well nourished GENERAL APPEARANCE: cooperative, comfortable, well kempt and well developed ORIENTATION/CONSCIOUSNESS: Yes awake, Yes oriented to person, Yes oriented to place and Yes oriented to time HENMT: COMMON NORMALS: normocephalic, external ears normal and Normal external nose present HEAD & SCALP: normal to inspection and normocephalic NOSE: Normal external nose present EXTERNAL EAR: Yes external ears normal MOUTH: Normal oral and palatal mucosa present THROAT: posterior oropharynx normal Eye: COMMON NORMALS: Equal, round and reactive pupils present and EOMs intact bilaterally GENERAL EYE: appearance normal, both eyes and all related structures PUPIL: Yes Equal, round and reactive pupils present Neck/C-Spine: COMMON NORMALS: full ROM, no lymphadenopathy, no meningeal signs and no JVD GENERAL: Yes normal visual inspection Lymph: LYMPHATIC: no lymphadenopathy noted Chest: COMMONS NORMALS: normal inspection of the chest and normal palpation of entire chest wall Resp: COMMON NORMALS: normal respiratory effort, No retractions, No use of accessory muscles, clear to auscultation bilaterally and percussion normal EFFORT & INSPECTION: Yes able to speak in complete sentences AUSCULTATION: clear to auscultation bilaterally, wheezes expiratory wheezes and diminished lung sounds bilateral PERCUSSION: percussion normal Cardio: COMMON NORMALS: no JVD, regular rate, regular rhythm, S1 normal heart sound present, S2 normal heart sound present and Peripheral pulses 2+ throughout RATE: regular rate RHYTHM: regular rhythm HEART SOUNDS: S1 normal heart sound present and S2 normal heart sound present PERIPHERAL PULSES: Peripheral pulses 2+ throughout GI: COMMON NORMALS: Normal to inspection, nondistended, normoactive bowel sounds present, Soft to palpation, non-tender and no masses INSPECTION: Yes normal to inspection PALPATION: Yes Soft to palpation : COMMON NORMALS: Yes no CVA tenderness BLADDER/KIDNEY EXAM: Yes no CVA tenderness Back/Pelvis: COMMON NORMALS: no CVA tenderness, thoracic and lumbar spine normal to inspection, no thoracic nor lumbar tenderness and thoraco-lumbar ROM normal Extremity: COMMON NORMALS: normal to inspection, full ROM, capillary refill normal, no joint enlargement and no pedal edema GENERAL: Yes normal exam except as noted Neuro: COMMON NORMALS: patient oriented x3, CN's II-XII intact bilaterally, moves all extremities, no focal motor deficits, no sensory deficits noted and gait normal SENSORIUM/ORIENTATION: Yes alert, Yes oriented to person, Yes oriented to place and Yes oriented to time MENINGEAL SIGNS: Yes no meningeal signs Psych: COMMON NORMALS: mental status grossly normal, Normal thought process present, cooperative, normal affect and speech normal APPEARANCE: Yes well kempt ATTITUDE: Yes calm SPEECH: Yes normal speech THOUGHT PROCESS: Normal thought process present Skin: COMMON NORMALS: no rashes or lesions noted GENERAL SKIN EXAM: no rashes or lesions noted Course Vital Signs: Vital signs: Vital Signs Temperature 97.7 F 08/20/20 11:27 Pulse Rate 83 08/20/20 15:22 Respiratory Rate 16 08/20/20 15:22 Blood Pressure 96/55 08/20/20 15:22 Pulse Oximetry 95 08/20/20 15:22 MDM - COVID 2 MDM Narrative: Medical decision making narrative: Patient came in with symptoms of bronchitis. She also has chronic COPD and is a smoker. Discussed smoking cessation with her. She swab negative for Covid. Will treat as an outpatient with steroids, antibiotic, and albuterol as needed. Primary care physician in a couple days and return to the ER if symptoms worsen. Also mentioned with her she has a small nodule in her lung. Recommended discussing with her primary care physician and repeating a CT in 1 year. She understands and will follow up. Lab Data: Labs: Lab Results 08/20/20 08/20/20 08/20/20 Range/Units 11:31 11:31 11:31 WBC 13.9 H (4.0-10.0) 10^3/ uL RBC 4.66 (4.1-5.3) 10^6/u L Hgb 14.8 (11.5-15.3) g/dL Hct 45.8 (37.0-47.0) % MCV 98.3 (81-99) fL MCH 31.8 (28.0-34.0) pg MCHC 32.3 (30.0-36.0) g/dL RDW 13.4 (12.1-15.1) % Plt Count 303 (130-400) 10^3/c mm MPV 10.5 H (7.4-10.4) fL Neut % (Auto) 64.5 % Lymph % (Auto) 25.7 % [place] % (Auto) 7.6 % Eos % (Auto) 1.2 % Baso % (Auto) 0.4 % Neut # (Auto) 8.95 H (1.8-7.7) 10^3/u L Lymph # (Auto) 3.6 (0.8-4.8) 10^3/u L [place] # (Auto) 1.1 H (0.2-0.9) 10^3/u L Eos # (Auto) 0.2 (0.0-0.8) 10^3/u L Baso # (Auto) 0.1 (0.0-0.1) 10^3/u L Nucleated RBC % (a uto) 0 % Nucleated RBCs # 0.0 /100WBC D-Dimer (0-0.59) ug/mIFE U Sodium 138 (136-145) mmol/L Potassium 3.7 (3.5-5.1) mmol/L Chloride 100 (98-107) mmol/L Carbon Dioxide 25 (22-29) mmol/L Anion Gap 16.7 (5-19) BUN 10 (6-20) mg/dL Creatinine 0.7 (0.5-0.9) mg/dL GFR Calculation 89.7 L (90-130) mL/min Glucose 92 (65-115) mg/dL Calculated Osmolal ity 285 (285-295) mOsm/k g Lactic Acid 1.8 (0.5-2.2) mmol/L Calcium 9.7 (8.5-10.5) mg/dL Total Bilirubin 0.2 (0.15-1.2) mg/dL AST 12 (0-32) U/L ALT 12 (0-33) U/L Alkaline Phosphata se 111 H (35-105) IU/L Troponin T Gen 5 n g/L (0-10) ng/L NT-Pro-B Natriuret Pep 48 (0-125) pg/mL Total Protein 7.6 (6.6-8.7) g/dL Albumin 4.2 (3.5-5.2) g/dL Globulin 3.4 (1.3-4.6) g/dL Influenza Type A A g (Negative) Influenza Type B A g (Negative) SARS-CoV-2 Ag (Rap id) (Negative) 08/20/20 08/20/20 08/20/20 Range/Units 11:31 11:31 11:48 WBC (4.0-10.0) 10^3/ uL RBC (4.1-5.3) 10^6/u L Hgb (11.5-15.3) g/dL Hct (37.0-47.0) % MCV (81-99) fL MCH (28.0-34.0) pg MCHC (30.0-36.0) g/dL RDW (12.1-15.1) % Plt Count (130-400) 10^3/c mm MPV (7.4-10.4) fL Neut % (Auto) % Lymph % (Auto) % [place] % (Auto) % Eos % (Auto) % Baso % (Auto) % Neut # (Auto) (1.8-7.7) 10^3/u L Lymph # (Auto) (0.8-4.8) 10^3/u L [place] # (Auto) (0.2-0.9) 10^3/u L Eos # (Auto) (0.0-0.8) 10^3/u L Baso # (Auto) (0.0-0.1) 10^3/u L Nucleated RBC % (a uto) % Nucleated RBCs # /100WBC D-Dimer 0.70 H (0-0.59) ug/mIFE U Sodium (136-145) mmol/L Potassium (3.5-5.1) mmol/L Chloride (98-107) mmol/L Carbon Dioxide (22-29) mmol/L Anion Gap (5-19) BUN (6-20) mg/dL Creatinine (0.5-0.9) mg/dL GFR Calculation (90-130) mL/min Glucose (65-115) mg/dL Calculated Osmolal ity (285-295) mOsm/k g Lactic Acid (0.5-2.2) mmol/L Calcium (8.5-10.5) mg/dL Total Bilirubin (0.15-1.2) mg/dL AST (0-32) U/L ALT (0-33) U/L Alkaline Phosphata se (35-105) IU/L Troponin T Gen 5 n g/L 6 (0-10) ng/L NT-Pro-B Natriuret Pep (0-125) pg/mL Total Protein (6.6-8.7) g/dL Albumin (3.5-5.2) g/dL Globulin (1.3-4.6) g/dL Influenza Type A A g Negative (Negative) Influenza Type B A g Negative (Negative) SARS-CoV-2 Ag (Rap id) (Negative) 08/20/20 Range/Units 11:48 WBC (4.0-10.0) 10^3/ uL RBC (4.1-5.3) 10^6/u L Hgb (11.5-15.3) g/dL Hct (37.0-47.0) % MCV (81-99) fL MCH (28.0-34.0) pg MCHC (30.0-36.0) g/dL RDW (12.1-15.1) % Plt Count (130-400) 10^3/c mm MPV (7.4-10.4) fL Neut % (Auto) % Lymph % (Auto) % [place] % (Auto) % Eos % (Auto) % Baso % (Auto) % Neut # (Auto) (1.8-7.7) 10^3/u L Lymph # (Auto) (0.8-4.8) 10^3/u L [place] # (Auto) (0.2-0.9) 10^3/u L Eos # (Auto) (0.0-0.8) 10^3/u L Baso # (Auto) (0.0-0.1) 10^3/u L Nucleated RBC % (a uto) % Nucleated RBCs # /100WBC D-Dimer (0-0.59) ug/mIFE U Sodium (136-145) mmol/L Potassium (3.5-5.1) mmol/L Chloride (98-107) mmol/L Carbon Dioxide (22-29) mmol/L Anion Gap (5-19) BUN (6-20) mg/dL Creatinine (0.5-0.9) mg/dL GFR Calculation (90-130) mL/min Glucose (65-115) mg/dL Calculated Osmolal ity (285-295) mOsm/k g Lactic Acid (0.5-2.2) mmol/L Calcium (8.5-10.5) mg/dL Total Bilirubin (0.15-1.2) mg/dL AST (0-32) U/L ALT (0-33) U/L Alkaline Phosphata se (35-105) IU/L Troponin T Gen 5 n g/L (0-10) ng/L NT-Pro-B Natriuret Pep (0-125) pg/mL Total Protein (6.6-8.7) g/dL Albumin (3.5-5.2) g/dL Globulin (1.3-4.6) g/dL Influenza Type A A g (Negative) Influenza Type B A g (Negative) SARS-CoV-2 Ag (Rap id) Negative (Negative) COVID Results: SARS-CoV-2 Antigen (Rapid) Negative (Negative) 08/20/20 11:48 08/20/20 Discharge Plan Discharge Patient Disposition: Home Clinical Impression: Acute exacerbation of chronic obstructive pulmonary disease, Incidental lung nodule Upper respiratory infection Qualifiers: URI type: unspecified URI Qualified Code(s): J06.9 - Acute upper respiratory infection, unspecified Condition: Stable Prescriptions: New azithromycin 250 mg tablet 250 mg PO DAILY 4 Days Qty: 4 RF: 0 albuterol sulfate 90 mcg/actuation HFA aerosol inhaler 2 inh inhalation Q6H PRN (Reason: shortness of breath or wheezing) Qty: 1 RF: 0 ciprofloxacin HCl 500 mg tablet 500 mg PO Q12H Qty: 20 RF: 0 No Action albuterol sulfate 2.5 mg /3 mL (0.083 %) solution for nebulization 2.5 mg INHALATION Q4H PRN (Reason: shortness of breath or wheezing) Qty: 75 RF: 0 sertraline [Zoloft] 100 mg tablet 150 mg PO DAILY Qty: 30 RF: 2 cyanocobalamin (vitamin B-12) 1,000 mcg/mL kit 1,000 mcg IM .every 2 weeks 56 Days Qty: 2 RF: 2 cholecalciferol (vitamin D3) [Weekly-D] 1,250 mcg (50,000 unit) capsule 50,000 unit PO .twice per week Qty: 10 RF: 2 alprazolam [Xanax] 2 mg tablet 2 mg PO DAILY PRN (Reason: anxiety) Qty: 30 RF: 0 quetiapine 300 mg tablet 600 mg PO DAILY RF: 0 qxxdbbniok-hgusexfwph-gms-cod [id number] mg capsule 1 cap PO Q4H PRN (Reason: Headache) RF: 0 atorvastatin 20 mg tablet 20 mg PO DAILY RF: 0 ezetimibe [Zetia] 10 mg tablet 10 mg PO DAILY RF: 0 levothyroxine 112 mcg capsule 112 mcg PO DAILY RF: 0 potassium chloride 10 mEq capsule, extended release 10 meq PO DAILY RF: 0 atenolol 50 mg tablet 50 mg PO DAILY RF: 0 tizanidine 4 mg capsule See Rx Instructions .ROUTE .COMPLEX RF: 0 gabapentin 100 mg capsule 300 mg PO DAILY Qty: 90 RF: 5 promethazine 25 mg tablet 25 mg PO Q6H PRN (Reason: nausea and vomiting) Qty: 20 RF: 0 omeprazole 40 mg Capsule,Delayed Release(Dr/Ec) 40 mg PO DAILY RF: 0 Zofran 4 mg tablet 4 mg PO BID Qty: 20 RF: 0 Discharge Orders: Discharge ED (Routine); Ordered 08/20/20 Ordered By: Davide Rajan Referrals: Kayleen Suggs FNP [Primary Care Provider] - Discharge Diet: Advance as tolerated Discharge Activity: Resume usual activity Patient Instructions: Chronic Obstructive Pulmonary Disease (ED) Activity Restrictions/Additional Instructions: You likely have bronchitis and a COPD exacerbation. Please take the antibiotics, steroids, and use the albuterol inhaler to help you with shortness of breath. You may take Tylenol at home if you get a fever. Drink lots of fluids and return to the ER if your symptoms worsen. Follow-up with your primary care physician in a couple days to monitor improvement of your symptoms. Incidentally he also have a small lung nodule. It is recommended getting a repeat CAT scan in a year to make sure it stays the same size. Please discuss this with your primary care physician at your follow-up appointment Coding Level of Care Code ED Insurance Adjustor for Chg Fwd Exam Comprehensive
[2020-08-20 12:02] LABS: Lactic Sepsis W/Reflex 1.8 mmol/L (0.5-2.2); Troponin T (5th) Once 6 ng/L (0-10)
[2020-08-20] MEDS: albuterol 8 gm MDI 2 PUFF INHALATION (12:02)
[2020-08-20 12:11] LABS: Alanine Aminotransferase 12 U/L (0-33); Albumin Level 4.2 g/dL (3.5-5.2); Alkaline Phosphatase 111 IU/L (35-105); Blood Urea Nitrogen 10 mg/dL (6-20); Calcium 9.7 mg/dL (8.5-10.5); Carbon Dioxide 25 mmol/L (22-29); Chloride 100 mmol/L (98-107); Globulin 3.4 g/dL (1.3-4.6); Glomerular Filtration Rate 89.7 mL/min (90-130); Glucose 92 mg/dL (65-115); NT Pro B Type Natriuretic Pept 48 pg/mL (0-125); Osmolality Calculated 285 mOsm/kg (285-295); Sodium 138 mmol/L (136-145); Total Bilirubin 0.2 mg/dL (0.15-1.2); Total Protein 7.6 g/dL (6.6-8.7)
[2020-08-20 12:16] LABS: Anion Gap 16.7 (5-19); Aspartate Amino Transferase 12 U/L (0-32); Potassium 3.7 mmol/L (3.5-5.1)
[2020-08-20 12:29] LABS: Influenza A by IFA Negative (Negative); Influenza B by IFA Negative (Negative); SARS Covid-2 Antigen Negative (Negative)
--- NOTE | 2020-08-20 13:29 | CTR_ITS ---
PROCEDURE INFORMATION: Exam: CT Angiography Chest With Contrast Exam date and time: 08/20/2020 1:39 PM Age: 45 years old Clinical indication: Shortness of breath; Additional info: R/O pe TECHNIQUE: Imaging protocol: Computed tomographic angiography of the chest with intravenous contrast. 3D rendering (Not supervised by radiologist): MIP reconstructed images were created by the technologist. Radiation optimization: All CT scans at this facility use at least one of these dose optimization techniques: automated exposure control; mA and/or kV adjustment per patient size (includes targeted exams where dose is matched to clinical indication); or iterative reconstruction. Contrast material: OMNI 350; Contrast volume: 65 ml; Contrast route: INTRAVENOUS (IV); COMPARISON: CT angio chest w abd pel w con 07/06/2020 8:37 AM RADIATION DOSE METRICS: Total DLP (mGy-cm): 545.77 FINDINGS: Pulmonary arteries: Normal. No pulmonary emboli. Aorta: No aortic aneurysm. No aortic dissection. Lungs: Minimal lateral right pulmonary apical centrilobular emphysema. 2 mm anterior right pulmonary apical not definitely calcified nodule, stable. Pleural space: No pneumothorax. No pleural effusion. Heart: Proximal LAD coronary artery calcifications. Mediastinal space: Right hilar granulomatous hi calcifications are present. Lymph nodes: Anterior right inferior pulmonary hilar lymph node measuring 10.7 mm short axis. Subcarinal lymph node measuring 13.6 mm short axis. Left lower paratracheal lymph node measuring 8.4 mm short axis. Retrocaval/pretracheal lymph node measuring 11.4 mm short axis. Anterior left inferior pulmonary hilar lymph node measuring 9.3 mm short axis. Liver: Mild diffuse hypoattenuation of the liver is present consistent with hepatic steatosis. Spleen: The spleen demonstrates several small calcifications consistent with healed granulomatous disease. Bones/joints: Moderate T5-6 spondylosis. Mild T7 and T8, moderate T9 chronic vertebral body compression deformities. Soft tissues: Unremarkable. CT/CT angio chest PE protcl [id number] IMPRESSION: 1. No pulmonary embolism identified. 2. Small right pulmonary apical not definitely calcified nodule, stable. yamilex Rocha al., Fleischner Society, 2017, recommendations are: ?For patients at low risk (minimal or absent history of smoking and of other known risk factors), no routine follow-up is indicated. For patients at high risk (history of smoking or of other known risk factors), consider optional CT at 12 months . The follow-up interval deviates from the recommendations, risk stratification not specified. Clinical correlation is recommended. 3. Nonspecific mild mediastinal/pulmonary hilar lymphadenopathy, increased. 4. Coronary atherosclerosis. 5. Mild fatty infiltration of the liver. Radiation Dose CTDIVOL = (mGy): DLP = 545.77 (mGy-cm)
[2020-08-20] MEDS: iohexol 350 mg/mL 100 mL Btl IV (14:03)
--- NOTE | 2020-08-20 14:23 | PC.NURSE ---
Read and agree with assessment.
[2020-08-20] MEDS: ciprofloxacin 500 mg Tablet PO (15:20)
[2020-08-20] MEDS: predniSONE 20 mg Tablet 40 MG PO (15:20)
== END 2020-08-20 15:22 | disposition home or self-care (01) ==
PROVIDERS: Emergency Provider Family Medicine; PCP Nurse Practitioner Family
DX: J44.1 Chronic obstructive pulmonary disease with (acute) exacerbation (principal); J06.9 Acute upper respiratory infection, unspecified; R91.1 Solitary pulmonary nodule; E78.5 Hyperlipidemia, unspecified; F17.210 Nicotine dependence, cigarettes, uncomplicated
CPT/HCPCS: 12345; 71045; 71275; 80053; 83605; 83880; 84484; 85025; 85378; 87426; 87804; 93005; 94640; 96360; 96361; 99283; 99284; J3535; J7030; J7512; Q9967

== ENCOUNTER 2021-04-23 07:34 | Emergency (ER) | payer MEDICARE, SELFPAY ==
[2021-04-23 07:51] VITALS: BP 143/90; PULSE 67; RESP 18; O2SAT 97; BMI 25.0
[2021-04-23 08:00] VITALS: BP 147/87; PULSE 60; RESP 18; O2SAT 92
--- NOTE | 2021-04-23 08:03 | ED_ITS ---
HPI - Nausea/Vomiting/Diarrhea General: Chief complaint: Nausea/Vomiting/Diarrhea Stated complaint: Vomiting Time Seen by Provider: 04/23/21 07:50 History of Present Illness: HPI Narrative: Patient states she started with nausea and vomiting last night. Has had some chills. Denies any other problems. Says she was unable smoker marijuana yesterday because she was nauseated. MD elicited complaint: nausea, vomiting, diarrhea and abdominal pain Onset (ago): hour(s) Description of vomiting: food contents Description of diarrhea: semi-solid Associated nausea: Yes Associated abdominal pain: Yes Location of pain: Epigastric (Started after vomiting) Severity: mild Exacerbating factors: eating Relieving factors: none Context: marijuana use Associated symtoms: Reports no associated symptoms and nausea; Denies anxiety, change in vision, chest pain or headache(s) Review of Systems Const: Denies: fever(s), chills or body aches Eyes: Denies: change in vision or blurry vision ENMT: Denies: throat pain or nasal congestion Card: Denies: chest pain or dyspnea on exertion Resp: Denies: dyspnea, productive cough or non-productive cough GI: Reports: abdominal pain, nausea and vomiting Musc: Denies: extremity pain Skin/Breast: Denies: rash Neuro: Denies: headache(s) Psych: Denies: anxiety or depression Bravo/Lymph: Denies: easy bruising PFSH ED PFSH: Medical History (Updated 04/23/21 @ 09:08 by HEIDI Macias) Bipolar disorder, current episode hypomanic High risk medication use Hyperlipidemia Hypothyroidism Neuropathy of right sciatic nerve Smoker Tachycardia Social History Smoking and tobacco status: current every day smoker cigarettes Alcohol intake: never History of recent travel: No Current gender identity: Female Female Reproductive History: Date of last menstrual period: 04/23/21 Physical Exam Const: COMMON NORMALS: no acute distress, average body habitus and patient oriented x3 HENMT: COMMON NORMALS: normocephalic HEAD & SCALP: normal to inspection and normocephalic FACE & SINUS: normal facial exam Eye: COMMON NORMALS: conjunctivae normal GENERAL EYE: appearance normal, both eyes and all related structures CONJUNCTIVA: Yes conjunctivae normal Neck/C-Spine: COMMON NORMALS: no JVD Chest: COMMONS NORMALS: normal inspection of the chest Resp: COMMON NORMALS: normal respiratory effort and clear to auscultation bilaterally AUSCULTATION: clear to auscultation bilaterally Cardio: COMMON NORMALS: no JVD, regular rate and regular rhythm RATE: regular rate RHYTHM: regular rhythm GI: INSPECTION: Yes normal to inspection AUSCULTATION: Yes normoactive bowel sounds PALPATION: Yes Tenderness to palpation present (GI) (Epigastric) Extremity: COMMON NORMALS: normal to inspection and full ROM Neuro: COMMON NORMALS: patient oriented x3 Course Vital Signs: Vital signs: Vital Signs Pulse Rate 60 04/23/21 08:00 Respiratory Rate 18 04/23/21 08:00 Blood Pressure 147/87 04/23/21 08:00 Pulse Oximetry 92 04/23/21 08:00 MDM - Nausea/Vomiting/Diarrhea MDM Narrative: Medical decision making narrative: Patient responded well to Phenergan. Patient requesting going home. Fluids were infused patient's lab were stable patient has a history of cannabis hyperemesis emesis syndrome. Patient encouraged to cut back on marijuana use. Lab Data: Labs: Lab Results 04/23/21 04/23/21 Range/Units 08:15 08:15 WBC 10.3 H (4.0-10.0) 10^3/ uL RBC 5.05 (4.1-5.3) 10^6/u L Hgb 16.3 H (11.5-15.3) g/dL Hct 49.3 H (37.0-47.0) % MCV 97.6 (81-99) fl MCH 32.3 (28.0-34.0) pg MCHC 33.1 (30.0-36.0) g/dL RDW 14.1 (12.1-15.1) % Plt Count 274 (130-400) 10^3/c mm MPV 11.1 H (7.4-10.4) fL Neut % (Auto) 71.5 % Lymph % (Auto) 18.8 % [place] % (Auto) 7.9 % Eos % (Auto) 0.8 % Baso % (Auto) 0.6 % Neut # (Auto) 7.34 (1.8-7.7) 10^3/u L Lymph # (Auto) 1.9 (0.8-4.8) 10^3/u L [place] # (Auto) 0.8 (0.2-0.9) 10^3/u L Eos # (Auto) 0.1 (0.0-0.8) 10^3/u L Baso # (Auto) 0.1 (0.0-0.1) 10^3/u L Nucleated RBC % (a uto) 0 % Nucleated RBCs # 0.0 /100WBC Sodium 141 (136-145) mmol/L Potassium 3.6 (3.5-5.1) mmol/L Chloride 102 (98-107) mmol/L Carbon Dioxide 27 (22-29) mmol/L Anion Gap 15.6 (5-19) BUN 10 (6-20) mg/dL Creatinine 0.6 (0.5-0.9) mg/dL GFR Calculation 107.2 (90-130) mL/min Glucose 94 (65-115) mg/dL Calculated Osmolal ity 291 (285-295) mOsm/k g Calcium 9.2 (8.5-10.5) mg/dL Lipase 26 (13-60) U/L Discharge Plan Discharge Patient Disposition: Home Clinical Impression: Cannabinoid hyperemesis syndrome Condition: Stable Prescriptions: New promethazine 25 mg tablet 25 mg PO TID PRN (Reason: nausea and vomiting) Qty: 10 RF: 0 No Action albuterol sulfate 2.5 mg /3 mL (0.083 %) solution for nebulization 2.5 mg INHALATION Q4H PRN (Reason: shortness of breath or wheezing) Qty: 75 RF: 0 sertraline [Zoloft] 100 mg tablet 150 mg PO DAILY Qty: 30 RF: 2 cyanocobalamin (vitamin B-12) 1,000 mcg/mL kit 1,000 mcg IM .every 2 weeks 56 Days Qty: 2 RF: 2 cholecalciferol (vitamin D3) [Weekly-D] 1,250 mcg (50,000 unit) capsule 50,000 unit PO .twice per week Qty: 10 RF: 2 alprazolam [Xanax] 2 mg tablet 2 mg PO DAILY PRN (Reason: anxiety) Qty: 30 RF: 0 quetiapine 300 mg tablet 600 mg PO DAILY RF: 0 hdglzowlip-nlgijsoqpq-nnz-cod [id number] mg capsule 1 cap PO Q4H PRN (Reason: Headache) RF: 0 atorvastatin 20 mg tablet 20 mg PO DAILY RF: 0 ezetimibe [Zetia] 10 mg tablet 10 mg PO DAILY RF: 0 potassium chloride 10 mEq capsule, extended release 10 meq PO DAILY RF: 0 tizanidine 4 mg capsule See Rx Instructions .ROUTE .COMPLEX RF: 0 gabapentin 100 mg capsule 300 mg PO DAILY Qty: 90 RF: 5 levothyroxine 125 mcg tablet 125 mcg PO DAILY RF: 0 metoprolol tartrate 25 mg tablet 25 mg PO BID Qty: 180 RF: 3 promethazine 25 mg tablet 25 mg PO Q6H PRN (Reason: nausea and vomiting) Qty: 20 RF: 0 omeprazole 40 mg Capsule,Delayed Release(Dr/Ec) 40 mg PO DAILY RF: 0 Zofran 4 mg tablet 4 mg PO BID Qty: 20 RF: 0 albuterol sulfate 90 mcg/actuation HFA aerosol inhaler 2 inh inhalation Q6H PRN (Reason: shortness of breath or wheezing) Qty: 1 RF: 0 ciprofloxacin HCl 500 mg tablet 500 mg PO Q12H Qty: 20 RF: 0 Medrol (Jim) 4 mg tablets,dose pack See Rx Instructions .ROUTE .COMPLEX Qty: 21 RF: 0 Discharge Orders: Discharge ED (Routine); Ordered 04/23/21 Ordered By: Eliud Akbar Referrals: Kayleen Suggs FNP [Primary Care Provider] - Discharge Diet: Advance as tolerated Discharge Activity: Resume usual activity Activity Restrictions/Additional Instructions: Follow-up with medical provider as directed. Take medications as prescribed. Return to the ER or your medical provider if condition worsens. Please read and understand discharge instructions. If any questions ask please. Coding Level of Care Code ED Small Electric Engine Technician for Brett Fwd Exam Comprehensive
[2021-04-23] MEDS: sodium chloride 0.9% 1,000 ML 999 ML IV (08:21)
[2021-04-23] MEDS: promethazine 25 mg/mL SDV 1 mL IM (08:21)
[2021-04-23 08:42] LABS: Anion Gap 15.6 (5-19); Blood Urea Nitrogen 10 mg/dL (6-20); Calcium 9.2 mg/dL (8.5-10.5); Carbon Dioxide 27 mmol/L (22-29); Chloride 102 mmol/L (98-107); Glomerular Filtration Rate 107.2 mL/min (90-130); Glucose 94 mg/dL (65-115); Lipase 26 U/L (13-60); Osmolality Calculated 291 mOsm/kg (285-295); Potassium 3.6 mmol/L (3.5-5.1); Sodium 141 mmol/L (136-145)
[2021-04-23 08:47] LABS: Basophils # 0.1 10^3/uL (0.0-0.1); Basophils % 0.6 %; Eosinophils # 0.1 10^3/uL (0.0-0.8); Eosinophils % 0.8 %; Hematocrit 49.3 % (37.0-47.0); Hemoglobin 16.3 g/dL (11.5-15.3); Lymphocytes # 1.9 10^3/uL (0.8-4.8); Lymphocytes % 18.8 %; Mean Corpuscular HGB Conc 33.1 g/dL (30.0-36.0); Mean Corpuscular Hemoglobin 32.3 pg (28.0-34.0); Mean Corpuscular Volume 97.6 fl (81-99); Mean Platelet Volume 11.1 fL (7.4-10.4); Monocytes # 0.8 10^3/uL (0.2-0.9); Monocytes % 7.9 %; Neutrophils # 7.34 10^3/uL (1.8-7.7); Neutrophils % 71.5 %; Nucleated Red Blood Cells % 0 %; Platelet Count 274 10^3/cmm (130-400); Red Blood Count 5.05 10^6/uL (4.1-5.3); Red Cell Distribution Width 14.1 % (12.1-15.1); White Blood Count 10.3 10^3/uL (4.0-10.0)
== END 2021-04-23 09:26 | disposition home or self-care (01) ==
PROVIDERS: Emergency Provider Nurse Practitioner Family; PCP Nurse Practitioner Family
DX: R11.2 Nausea with vomiting, unspecified (principal); F12.90 Cannabis use, unspecified, uncomplicated; E78.5 Hyperlipidemia, unspecified; F17.210 Nicotine dependence, cigarettes, uncomplicated
CPT/HCPCS: 80048; 83690; 85025; 96360; 96372; 99284; J2550; J7030

== ENCOUNTER 2021-08-05 10:11 | Emergency (ER) | payer MEDICARE, SELFPAY ==
[2021-08-05 10:27] VITALS: BP 136/93; PULSE 95; RESP 14; TEMP 36.6; O2SAT 99; BMI 25.8
--- NOTE | 2021-08-05 10:34 | W.ED.NAVMDI ---
HPI - Nausea/Vomiting/Diarrhea General: Chief complaint: Nausea/Vomiting/Diarrhea Stated complaint: n/v Time Seen by Provider: 08/05/21 10:33 History of Present Illness: HPI Narrative: NVD x 24 hours MD elicited complaint: nausea, vomiting, diarrhea and abdominal pain Associated nausea: Yes Associated symtoms: Reports nausea Review of Systems General: Reports: 10 or more systems reviewed and unremarkable except in HPI and below Const: Reports: chills and body aches; Denies: fever(s) GI: Reports: abdominal pain, nausea, vomiting and diarrhea : Denies: flank pain PFSH ED PFSH: Medical History (Updated 08/05/21 @ 12:54 by Luanne Barba) Bipolar disorder, current episode hypomanic High risk medication use Hyperlipidemia Hypothyroidism Neuropathy of right sciatic nerve Smoker Tachycardia Social History Smoking and tobacco status: current every day smoker cigarettes Alcohol intake: never History of recent travel: No Current gender identity: Female Female Reproductive History: Date of last menstrual period: 04/23/21 Physical Exam Const: COMMON NORMALS: no acute distress, patient oriented x3, no limitations and alert GENERAL APPEARANCE: cooperative and comfortable ORIENTATION/CONSCIOUSNESS: Yes awake, Yes oriented to person, Yes oriented to place and Yes oriented to time HENMT: COMMON NORMALS: normocephalic, atraumatic, external ears normal, EAC's normal, TM's normal bilaterally and Normal external nose present HEAD & SCALP: normal to inspection, normocephalic and atraumatic FACE & SINUS: normal facial exam, sinuses nontender and face symmetric NOSE: Normal external nose present, Normal nares present and No nasal discharge present EXTERNAL EAR: Yes external ears normal EXTERNAL AUDITORY CANAL: EAC's normal TYMPANIC MEMBRANE: TM's normal bilaterally MOUTH: Normal oral and palatal mucosa present, lip normal and tongue normal THROAT: posterior oropharynx normal, tonsils normal and uvula midline Eye: COMMON NORMALS: Equal, round and reactive pupils present, EOMs intact bilaterally and conjunctivae normal GENERAL EYE: appearance normal, both eyes and all related structures and normal light reflex EYELID: eyelids normal CONJUNCTIVA: Yes conjunctivae normal PUPIL: Yes Equal, round and reactive pupils present EOM: Yes EOM abnormal DIRECT OPHTHALMOSCOPY: Yes normal light reflex Neck/C-Spine: COMMON NORMALS: full ROM, no lymphadenopathy, supple, no meningeal signs, no JVD and Thyroid normal GENERAL: Yes normal visual inspection THYROID: Thyroid normal CERVICAL SPINE: Yes cervical ROM normal and Yes normal cervical lordosis Lymph: LYMPHATIC: no lymphadenopathy noted Chest: COMMONS NORMALS: normal inspection of the chest and normal palpation of entire chest wall Resp: COMMON NORMALS: normal respiratory effort, No retractions and clear to auscultation bilaterally AUSCULTATION: clear to auscultation bilaterally Cardio: COMMON NORMALS: no JVD, regular rate, regular rhythm, S1 normal heart sound present, S2 normal heart sound present, No gallops present (Cardio), No clicks present (Cardio), No murmurs present (Cardio), No rub (Cardio) and Peripheral pulses 2+ throughout RATE: regular rate RHYTHM: regular rhythm HEART SOUNDS: S1 normal heart sound present and S2 normal heart sound present PERIPHERAL PULSES: Peripheral pulses 2+ throughout GI: COMMON NORMALS: Normal to inspection, nondistended, normoactive bowel sounds present, Soft to palpation, non-tender, No hepatosplenomegaly present and no masses PALPATION: Yes Soft to palpation, Yes Tenderness to palpation present (GI) (epigastric) and Yes No hepatosplenomegaly present : COMMON NORMALS: Yes no CVA tenderness and Yes normal external appearance BLADDER/KIDNEY EXAM: Yes no CVA tenderness Back/Pelvis: COMMON NORMALS: no CVA tenderness, thoracic and lumbar spine normal to inspection, no thoracic nor lumbar tenderness and thoraco-lumbar ROM normal Extremity: COMMON NORMALS: normal to inspection, full ROM, capillary refill normal, no joint enlargement, no clubbing, cyanosis or edema, no calf tenderness and no pedal edema GENERAL: Yes normal exam except as noted Neuro: COMMON NORMALS: patient oriented x3, moves all extremities, no focal motor deficits, no sensory deficits noted and gait normal SENSORIUM/ORIENTATION: Yes alert, Yes oriented to person, Yes oriented to place and Yes oriented to time MENINGEAL SIGNS: Yes no meningeal signs Psych: COMMON NORMALS: mental status grossly normal, Normal thought process present, cooperative, normal affect, speech normal and activity/motor behavior normal SPEECH: Yes normal speech THOUGHT PROCESS: Normal thought process present Skin: COMMON NORMALS: no rashes or lesions noted, no wounds and turgor normal GENERAL SKIN EXAM: no rashes or lesions noted and turgor normal Course ED course: Pt presents to ER with complaints of NVD x 24 hours. Pt states she has a gluten intolerance and may have been exposed in her diet over the holidays. She states she is chilling as well with overall body aches. Requests specifically for phenergan as none others work for her nausea and vomiting episodes. We will attempt zofran and fluids first and reevaluate clinical need for phenergan as pt is not vomiting currently. Reevaluation(s): Reevaluation #1: Pt labs are not indicative of any acute emergencies and her nausea has resolved after zofran. We will DC with clear liquid diet. Her liver enzymes were slightly elevated so amylase and lipase ordered to rule out pancreatitis; all of which were WNL. Stomach flu is increasing in this area and she seems to have the early onset of this. Supportive therapy as of now and return if worsening symptoms or concerns. Time: 12:56 Vital Signs: Vital signs: Vital Signs Temperature 97.8 F 08/05/21 10:27 Pulse Rate 78 08/05/21 12:45 Respiratory Rate 16 08/05/21 12:45 Blood Pressure 133/82 08/05/21 12:45 Pulse Oximetry 96 08/05/21 12:45 MDM - Nausea/Vomiting/Diarrhea Lab Data: Labs: Lab Results 08/05/21 08/05/21 08/05/21 11:17 11:17 11:17 WBC 10.4 10^3/uL H 10 ^3/uL (4.0-10.0) RBC 5.38 10^6/uL H 10 ^6/uL (4.1-5.3) Hgb 17.3 g/dL H g/dL (11.5-15.3) Hct 49.9 % H % (37.0-47.0) MCV 92.8 fl fl (81-99) MCH 32.2 pg pg (28.0-34.0) MCHC 34.7 g/dL g/dL (30.0-36.0) RDW 13.2 % % (12.1-15.1) Plt Count 268 10^3/cmm 10^3 /cmm (130-400) MPV 10.6 fL H fL (7.4-10.4) Neut % (Auto) 77.7 % % Lymph % (Auto) 13.5 % % [place] % (Auto) 7.2 % % Eos % (Auto) 0.6 % % Baso % (Auto) 0.4 % % Neut # (Auto) 8.09 10^3/uL H 10 ^3/uL (1.8-7.7) Lymph # (Auto) 1.4 10^3/uL 10^3/ uL (0.8-4.8) [place] # (Auto) 0.8 10^3/uL 10^3/ uL (0.2-0.9) Eos # (Auto) 0.1 10^3/uL 10^3/ uL (0.0-0.8) Baso # (Auto) 0.0 10^3/uL 10^3/ uL (0.0-0.1) Nucleated RBC % (a uto) 0 % % Nucleated RBCs # 0.0 /100WBC /100W BC Sodium 141 mmol/L mmol/L (136-145) Potassium 3.7 mmol/L mmol/L (3.5-5.1) Chloride 103 mmol/L mmol/L (98-107) Carbon Dioxide 22 mmol/L mmol/L (22-29) Anion Gap 19.7 H (5-19) BUN 12 mg/dL mg/dL (6-20) Creatinine 0.7 mg/dL mg/dL (0.5-0.9) GFR Calculation 89.3 mL/min L mL/ min (90-130) Glucose 100 mg/dL mg/dL (65-115) Calculated Osmolal ity 292 mOsm/kg mOsm/ kg (285-295) Calcium 9.4 mg/dL mg/dL (8.5-10.5) Total Bilirubin 0.3 mg/dL mg/dL (0.15-1.2) AST 14 U/L U/L (0-32) ALT 18 U/L U/L (0-33) Alkaline Phosphata se 149 IU/L H IU/L (35-105) Total Protein 8.1 g/dL g/dL (6.6-8.7) Albumin 4.6 g/dL g/dL (3.5-5.2) Globulin 3.5 g/dL g/dL (1.3-4.6) Amylase 67 U/L U/L (28-100) Lipase 26 U/L U/L (13-60) Urine Color Urine Appearance Urine pH Ur Specific Gravit y Urine Protein Urine Glucose (UA) Urine Ketones Urine Blood Urine Nitrate Urine Bilirubin Urine Urobilinogen Ur Leukocyte [place] ase Urine RBC Urine WBC Ur Squamous Epith Cells Amorphous Sediment Urine Bacteria Coarse Granular Ca sts Urine Mucus 08/05/21 11:20 WBC RBC Hgb Hct MCV MCH MCHC RDW Plt Count MPV Neut % (Auto) Lymph % (Auto) [place] % (Auto) Eos % (Auto) Baso % (Auto) Neut # (Auto) Lymph # (Auto) [place] # (Auto) Eos # (Auto) Baso # (Auto) Nucleated RBC % (a uto) Nucleated RBCs # Sodium Potassium Chloride Carbon Dioxide Anion Gap BUN Creatinine GFR Calculation Glucose Calculated Osmolal ity Calcium Total Bilirubin AST ALT Alkaline Phosphata se Total Protein Albumin Globulin Amylase Lipase Urine Color Dark yellow (Yellow) Urine Appearance Clear (CLEAR) Urine pH 5 (5-7) Ur Specific Gravit y 1.020 (1.005-1.030) Urine Protein 1+ H (Negative) Urine Glucose (UA) Norm (Normal) Urine Ketones Negative (Negative) Urine Blood 2+ H (Negative) Urine Nitrate Negative (Negative) Urine Bilirubin 1+ H (Negative) Urine Urobilinogen 1 mg/dL H mg/dL (Negative) Ur Leukocyte [place] ase Trace H (Negative) Urine RBC 0-4 /hpf H /hpf (0-2) Urine WBC 0-4 /hpf H /hpf (0-5) Ur Squamous Epith Cells 10-15 /hpf H /hpf (0-5) Amorphous Sediment Not Reportable Urine Bacteria 2+ /hpf H /hpf (NONE) Coarse Granular Ca sts 5-10 /lpf H /lpf Urine Mucus 1+ /hpf /hpf Discharge Plan Discharge Patient Disposition: Home Clinical Impression: Gastroenteritis Condition: Stable Prescriptions: New Zofran 4 mg tablet 4 mg PO Q8H Qty: 20 RF: 0 No Action albuterol sulfate 2.5 mg /3 mL (0.083 %) solution for nebulization 2.5 mg INHALATION Q4H PRN (Reason: shortness of breath or wheezing) Qty: 75 RF: 0 sertraline [Zoloft] 100 mg tablet 150 mg PO DAILY Qty: 30 RF: 2 cyanocobalamin (vitamin B-12) 1,000 mcg/mL kit 1,000 mcg IM .every 2 weeks 56 Days Qty: 2 RF: 2 cholecalciferol (vitamin D3) [Weekly-D] 1,250 mcg (50,000 unit) capsule 50,000 unit PO .twice per week Qty: 10 RF: 2 alprazolam [Xanax] 2 mg tablet 2 mg PO DAILY PRN (Reason: anxiety) Qty: 30 RF: 0 quetiapine 300 mg tablet 600 mg PO DAILY RF: 0 zryyoxweth-nhtosgptoo-vqu-cod [id number] mg capsule 1 cap PO Q4H PRN (Reason: Headache) RF: 0 atorvastatin 20 mg tablet 20 mg PO DAILY RF: 0 ezetimibe [Zetia] 10 mg tablet 10 mg PO DAILY RF: 0 potassium chloride 10 mEq capsule, extended release 10 meq PO DAILY RF: 0 tizanidine 4 mg capsule See Rx Instructions .ROUTE .COMPLEX RF: 0 gabapentin 100 mg capsule 300 mg PO DAILY Qty: 90 RF: 5 levothyroxine 125 mcg tablet 125 mcg PO DAILY RF: 0 metoprolol tartrate 25 mg tablet 25 mg PO BID Qty: 180 RF: 3 promethazine 25 mg tablet 25 mg PO Q6H PRN (Reason: nausea and vomiting) Qty: 20 RF: 0 omeprazole 40 mg Capsule,Delayed Release(Dr/Ec) 40 mg PO DAILY RF: 0 Zofran 4 mg tablet 4 mg PO BID Qty: 20 RF: 0 albuterol sulfate 90 mcg/actuation HFA aerosol inhaler 2 inh inhalation Q6H PRN (Reason: shortness of breath or wheezing) Qty: 1 RF: 0 ciprofloxacin HCl 500 mg tablet 500 mg PO Q12H Qty: 20 RF: 0 Medrol (Jim) 4 mg tablets,dose pack See Rx Instructions .ROUTE .COMPLEX Qty: 21 RF: 0 promethazine 25 mg tablet 25 mg PO TID PRN (Reason: nausea and vomiting) Qty: 10 RF: 0 Discharge Orders: Discharge ED (Routine); Ordered 08/05/21 Ordered By: Luanne Barba Referrals: Kayleen Suggs, [employer] [Primary Care Provider] - Discharge Diet: Clear Liquid Discharge Activity: Increase activity as tolerated Patient Instructions: Opioid Safety Activity Restrictions/Additional Instructions: Clear liquids only for 24 to 48 hours, take zofran every 8 hours to stay hydrated. You may want to consider zinc supplements after this episode passes as severe diarrhea can cause zinc deficiencies and make you more prone to getting sick easily. Return for fever or worsening in symptoms. Coding Level of Care Code ED Food Or Baggage Handling [place] for Brett Fwveronica Exam Comprehensive
[2021-08-05] MEDS: sodium chloride 0.9% 500 ML IV (11:23)
[2021-08-05] MEDS: ondansetron 2 mg/ML SDV 2 mL 4 MG IVP (11:23)
[2021-08-05 11:26] LABS: Basophils % 0.4 %; Eosinophils # 0.1 10^3/uL (0.0-0.8); Eosinophils % 0.6 %; Hematocrit 49.9 % (37.0-47.0); Hemoglobin 17.3 g/dL (11.5-15.3); Lymphocytes # 1.4 10^3/uL (0.8-4.8); Lymphocytes % 13.5 %; Mean Corpuscular HGB Conc 34.7 g/dL (30.0-36.0); Mean Corpuscular Hemoglobin 32.2 pg (28.0-34.0); Mean Corpuscular Volume 92.8 fl (81-99); Mean Platelet Volume 10.6 fL (7.4-10.4); Monocytes # 0.8 10^3/uL (0.2-0.9); Monocytes % 7.2 %; Neutrophils # 8.09 10^3/uL (1.8-7.7); Neutrophils % 77.7 %; Nucleated Red Blood Cells % 0 %; Platelet Count 268 10^3/cmm (130-400); Red Blood Count 5.38 10^6/uL (4.1-5.3); Red Cell Distribution Width 13.2 % (12.1-15.1); White Blood Count 10.4 10^3/uL (4.0-10.0)
[2021-08-05 11:47] LABS: Protein Urine 1+ (Negative); Urine Appearance Clear (CLEAR); Urine Color Dark Yellow (Yellow); pH Urine 5 (5-7)
[2021-08-05 11:48] LABS: Alanine Aminotransferase 18 U/L (0-33); Albumin Level 4.6 g/dL (3.5-5.2); Alkaline Phosphatase 149 IU/L (35-105); Anion Gap 19.7 (5-19); Aspartate Amino Transferase 14 U/L (0-32); Blood Urea Nitrogen 12 mg/dL (6-20); Calcium 9.4 mg/dL (8.5-10.5); Carbon Dioxide 22 mmol/L (22-29); Chloride 103 mmol/L (98-107); Globulin 3.5 g/dL (1.3-4.6); Glomerular Filtration Rate 89.3 mL/min (90-130); Glucose 100 mg/dL (65-115); Osmolality Calculated 292 mOsm/kg (285-295); Potassium 3.7 mmol/L (3.5-5.1); Sodium 141 mmol/L (136-145); Total Bilirubin 0.3 mg/dL (0.15-1.2); Total Protein 8.1 g/dL (6.6-8.7)
[2021-08-05 11:48] LABS: Add Urine Culture? No; Add Urine Microscopic? YES; Bacteria Urine 2+ /hpf; Bilirubin Urine 1+ (Negative); Blood Urine 2+ (Negative); Glucose Urine UA Norm (Normal); Ketones Urine Negative (Negative); Leukocyte Esterase Urine Trace (Negative); Mucus Urine 1+ /hpf; Nitrate Urine Negative (Negative); RBC Urine 0-4 /hpf (0-2); Urobilinogen Urine 1 mg/dL (Negative); WBC Urine 0-4 /hpf (0-5)
[2021-08-05 12:28] LABS: Amylase 67 U/L (28-100); Lipase 26 U/L (13-60)
[2021-08-05 12:45] VITALS: BP 133/82; PULSE 78; RESP 16; O2SAT 96
[2021-08-05 13:31] VITALS: BP 142/98; PULSE 91; RESP 16; O2SAT 99
== END 2021-08-05 13:33 | disposition home or self-care (01) ==
PROVIDERS: Emergency Provider Nurse Practitioner Family; PCP Nurse Practitioner Family
DX: K52.9 Noninfective gastroenteritis and colitis, unspecified (principal); E78.5 Hyperlipidemia, unspecified; F17.210 Nicotine dependence, cigarettes, uncomplicated
CPT/HCPCS: 80053; 81001; 82150; 83690; 85025; 96361; 96374; 99283; J2405; J7040

== ENCOUNTER 2022-09-20 13:32 | Outpatient (CLI) | payer MEDICARE, SELFPAY ==
--- NOTE | 2022-09-20 13:40 | US_ITS ---
WS: [id number] RIGHT UPPER QUADRANT ULTRASOUND HISTORY: RUQ PAIN COMPARISON: None available. Liver: 17.3 cm in length. Liver is top normal size with mild coarsened echotexture. No mass or bile d uct dilatation. Portal Vein: Normal hepatopetal flow with monophasic waveform. Gallbladder: Normally distended gallbladder with no stones or wall thickening. CBD: 0.5 cm Pancreas: Body and head are negative. The tail is partially obscured by bowel gas. Right kidney: 12.9 cm in length. Normal size and echogenicity. No hydronephrosis or mass. Aorta and IVC: Unremarkable abdominal aorta and IVC. No ascites. US/US abdomen limited [id number] IMPRESSION: 1. Negative gallbladder. 2. Liver is top normal size with mild hepatic steatosis.
== END 2022-09-20 13:33 | disposition home or self-care (01) ==
LOC: RAD 13:34
PROVIDERS: PCP Nurse Practitioner Family; Visit Provider Nurse Practitioner Family
DX: R10.11 Right upper quadrant pain (principal); K76.0 Fatty (change of) liver, not elsewhere classified
CPT/HCPCS: 76705

== ENCOUNTER 2023-02-07 09:12 | Emergency (ER) | payer MEDICARE, SELFPAY ==
[2023-02-07] VITALS (7 sets, daily range): BP systolic 122–155; BP diastolic 62–78; PULSE 63–103; RESP 16–19; TEMP 36.5; O2SAT 91–100; BMI 25.8
--- NOTE | 2023-02-07 09:47 | W.ED.ABDPA2 ---
HPI - Abdominal Pain General: Chief Complaint: Abdominal Pain Stated Complaint: fever, dizzy, Weak Time Seen by Provider: 02/07/23 09:24 Source: patient Mode of arrival: ambulatory History of Present Illness: 47-year-old female presents with nausea of vomiting abdominal pain weakness and some back pain that began yesterday. No dysuria urgency or frequency no cough or shortness of breath. No dysuria urgency. No hematochezia or melena. MD elicited complaint: abdominal pain Onset (ago): day(s) (1) Pain Consistency: constant Location: None Severity: mild Quality: sharp Radiation: none Exacerbating factors: nothing Relieving factors: nothing Associated Symptoms: Reports dysuria; Denies anorexia, belching, bloating, change in bowel habits, change in stool character, chills, coffee ground emesis, constipation, GI cramping, diarrhea, dyspepsia, excessive flatus, fever(s), heartburn, hematochezia, hematuria, hematemesis, fecal incontinence, loose stools, melena, nausea, poor appetite, syncope and vomiting Review of Systems Const: Denies: fever(s), chills, fatigue or malaise Card: Denies: chest pain or syncope Resp: Denies: dyspnea, productive cough or non-productive cough GI: Denies: nausea, vomiting, hematemesis, coffee ground emesis, heartburn, diarrhea, constipation, bloating, GI cramping, belching, excessive flatus, fecal incontinence, change in bowel habits, change in stool character, hematochezia or melena : Reports: flank pain, difficulty voiding, dysuria, urinary frequency and urinary urgency; Denies: hematuria Skin/Breast: Denies: rash or pruritus PFSH ED PFSH: Medical History (Updated 02/07/23 @ 15:39 by Aime Whitney DO) Bipolar disorder, current episode hypomanic High risk medication use Hyperlipidemia Hypothyroidism Neuropathy of right sciatic nerve Smoker Tachycardia Social History Smoking and tobacco status: current every day smoker cigarettes Alcohol intake: never Substance/Drug Use: never Current gender identity: Female Physical Exam Const: GENERAL APPEARANCE: cooperative ORIENTATION/CONSCIOUSNESS: Yes awake, Yes oriented to person, Yes oriented to place and Yes oriented to time HENMT: COMMON NORMALS: normocephalic, atraumatic and hearing grossly normal bilaterally HEAD & SCALP: normocephalic and atraumatic Resp: COMMON NORMALS: normal respiratory effort, No retractions, No use of accessory muscles and clear to auscultation bilaterally AUSCULTATION: clear to auscultation bilaterally Cardio: COMMON NORMALS: regular rate, regular rhythm and No murmurs present (Cardio) RATE: regular rate RHYTHM: regular rhythm GI: COMMON NORMALS: Soft to palpation and No hepatosplenomegaly present AUSCULTATION: Yes normoactive bowel sounds PALPATION: Yes Soft to palpation, No Tenderness to palpation present (GI), No Guarding due to palpation present (GI) and Yes No hepatosplenomegaly present : COMMON NORMALS: Yes no CVA tenderness BLADDER/KIDNEY EXAM: Yes no CVA tenderness Back/Pelvis: COMMON NORMALS: no CVA tenderness Extremity: COMMON NORMALS: normal to inspection, capillary refill normal, no clubbing, cyanosis or edema, no calf tenderness and no pedal edema Neuro: SENSORIUM/ORIENTATION: Yes oriented to person, Yes oriented to place and Yes oriented to time Skin: COMMON NORMALS: no rashes or lesions noted GENERAL SKIN EXAM: no rashes or lesions noted Course Vital Signs: Vital signs: Vital Signs Temperature 97.7 F 02/07/23 09:15 Pulse Rate 83 02/07/23 15:44 Respiratory Rate 16 02/07/23 12:00 Blood Pressure 155/78 02/07/23 15:44 Pulse Oximetry 96 02/07/23 15:44 Oxygen Delivery Me thod Room Air 02/07/23 13:46 MDM - Abdominal Pain Medical Decision Making Back pain. Remainder labs unremarkable patient is feeling somewhat better discharged home return if is further problems. Tizanidine diclofenac for back pain. Steroid taper as well return if is further problems. Abdominal discomfort had completely resolved at the time of discharge. Medical Records I reviewed the patient's medical records. Lab Data I reviewed the patient's lab results. 02/07/23 09:45 02/07/23 09:45 Labs/Radiology: Laboratory Results WBC 4.4 10^3/uL (4.0-10.0) 02/07/23 09:45 RBC 4.90 10^6/uL (4.1-5.3) 02/07/23 09:45 Hgb 15.0 g/dL (11.5-15.3) 02/07/23 09:45 Hct 45.0 % (37.0-47.0) 02/07/23 09:45 MCV 91.8 fl (81-99) 02/07/23 09:45 MCH 30.6 pg (28.0-34.0) 02/07/23 09:45 MCHC 33.3 g/dL (30.0-36.0) 02/07/23 09:45 RDW 13.5 % (12.1-15.1) 02/07/23 09:45 Plt Count 207 10^3/cmm (130-400) 02/07/23 09:45 MPV 10.6 fL (7.4-10.4) H 02/07/23 09:45 Neut % (Auto) 64.7 % 02/07/23 09:45 Lymph % (Auto) 18.9 % 02/07/23 09:45 [place] % (Auto) 15.5 % 02/07/23 09:45 Eos % (Auto) 0.2 % 02/07/23 09:45 Baso % (Auto) 0.2 % 02/07/23 09:45 Neut # (Auto) 2.83 10^3/uL (1.8-7.7) 02/07/23 09:45 Lymph # (Auto) 0.8 10^3/uL (0.8-4.8) 02/07/23 09:45 [place] # (Auto) 0.7 10^3/uL (0.2-0.9) 02/07/23 09:45 Eos # (Auto) 0.0 10^3/uL (0.0-0.8) 02/07/23 09:45 Baso # (Auto) 0.0 10^3/uL (0.0-0.1) 02/07/23 09:45 Nucleated RBC % (auto) 0 % 02/07/23 09:45 Nucleated RBCs # 0.0 /100WBC 02/07/23 09:45 Sodium 142 mmol/L (136-145) 02/07/23 09:45 Potassium 3.2 mmol/L (3.5-5.1) L 02/07/23 09:45 Chloride 103 mmol/L (98-107) 02/07/23 09:45 Carbon Dioxide 25 mmol/L (22-29) 02/07/23 09:45 Anion Gap 17.2 (5-19) 02/07/23 09:45 BUN 9 mg/dL (6-20) 02/07/23 09:45 Creatinine 0.6 mg/dL (0.5-0.9) 02/07/23 09:45 GFR Calculation 106.3 mL/min (90-130) 02/07/23 09:45 Glucose 78 mg/dL (65-115) 02/07/23 09:45 Calculated Osmolality 292 mOsm/kg (285-295) 02/07/23 09:45 Calcium 9.7 mg/dL (8.5-10.5) 02/07/23 09:45 Total Bilirubin 0.2 mg/dL (0.15-1.2) 02/07/23 09:45 AST 10 U/L (0-32) 02/07/23 09:45 ALT 10 U/L (0-33) 02/07/23 09:45 Alkaline Phosphatase 152 U/L (35-105) H 02/07/23 09:45 Total Protein 8.1 g/dL (6.6-8.7) 02/07/23 09:45 Albumin 4.5 g/dL (3.5-5.2) 02/07/23 09:45 Globulin 3.6 g/dL (1.3-4.6) 02/07/23 09:45 Lipase 24 U/L (13-60) 02/07/23 09:45 HCG, Qual Negative (Negative) 02/07/23 09:45 Urine Color Yellow (Yellow) 02/07/23 10:50 Urine Appearance Clear (CLEAR) 02/07/23 10:50 Urine pH 7 (5-7) 02/07/23 10:50 Ur Specific [place] 1.010 (1.005-1.030) 02/07/23 10:50 Urine Protein Trace (Negative) 02/07/23 10:50 Urine Glucose (UA) Norm (Normal) 02/07/23 10:50 Urine Ketones Negative (Negative) 02/07/23 10:50 Urine Blood 3+ (Negative) H 02/07/23 10:50 Urine Nitrate Negative (Negative) 02/07/23 10:50 Urine Bilirubin 1+ (Negative) H 02/07/23 10:50 Urine Urobilinogen Norm mg/dL (Negative) 02/07/23 10:50 Ur Leukocyte Esterase Negative (Negative) 02/07/23 10:50 Urine RBC 5-10 /hpf (0-2) H 02/07/23 09:49 Urine WBC 0-4 /hpf (0-5) H 02/07/23 09:49 Ur Squamous Epith Cells 25-40 /hpf (0-5) H 02/07/23 09:49 Amorphous Sediment Not Reportable 02/07/23 09:49 Urine Bacteria 1+ /hpf (NONE) H 02/07/23 09:49 Urine Mucus 3+ /hpf 02/07/23 09:49 Discharge Plan Discharge Patient Disposition: Home Clinical Impression: Back pain Condition: Stable Prescriptions: New tizanidine 4 mg tablet 4 mg PO Q6H PRN (Reason: muscle spasticity) Qty: 20 0RF Rx Instructions: do not exceed 3 doses per 24 hrs diclofenac sodium 75 mg tablet,delayed release (DR/EC) 75 mg PO Q12H PRN (Reason: pain) Qty: 20 0RF prednisone 20 mg tablet 20 mg PO TID Qty: 15 0RF Rx Instructions: 1 p.o. 3 times daily x3 days, 1 p.o. twice daily x2 days, 1 p.o. daily x2 days No Action albuterol sulfate 2.5 mg /3 mL (0.083 %) solution for nebulization 2.5 mg INHALATION Q4H PRN (Reason: shortness of breath or wheezing) Qty: 75 0RF sertraline [Zoloft] 100 mg tablet 150 mg PO DAILY Qty: 30 2RF Rx Instructions: cyanocobalamin (vitamin B-12) 1,000 mcg/mL kit 1,000 mcg IM .every 2 weeks 56 Days Qty: 2 2RF Rx Instructions: pt states she usually takes on alprazolam [Xanax] 2 mg tablet 2 mg PO DAILY PRN (Reason: anxiety) Qty: 30 0RF quetiapine 300 mg tablet 600 mg PO DAILY [id number]-[id number] [id number] mg capsule 1 cap PO Q4H PRN (Reason: Headache) atorvastatin 20 mg tablet 20 mg PO DAILY ezetimibe [Zetia] 10 mg tablet 10 mg PO DAILY potassium chloride 10 mEq capsule, extended release 10 meq PO DAILY gabapentin 100 mg capsule 300 mg PO DAILY Qty: 90 5RF levothyroxine 125 mcg tablet 125 mcg PO DAILY omeprazole 40 mg Capsule,Delayed Release(Dr/Ec) 40 mg PO DAILY albuterol sulfate 90 mcg/actuation HFA aerosol inhaler 2 inh inhalation Q6H PRN (Reason: shortness of breath or wheezing) Qty: 1 0RF doxepin 25 mg capsule 25 mg PO DAILY montelukast 10 mg tablet 10 mg PO DAILY Discharge Orders: Discharge ED (Routine); Ordered 02/07/23 Ordered By: Aime Whitney Referrals: Kayleen Suggs FNP [Primary Care Provider] - Discharge Diet: Usual diet Discharge Activity: Increase activity as tolerated Patient Instructions: Acute Low Back Pain (ED), Opioid Safety, Pain Management Coding Level of Care Code ED [employer] for Brett Guevara
[2023-02-07 10:00] LABS: Basophils % 0.2 %; Eosinophils % 0.2 %; Lymphocytes # 0.8 10^3/uL (0.8-4.8); Lymphocytes % 18.9 %; Mean Corpuscular HGB Conc 33.3 g/dL (30.0-36.0); Mean Corpuscular Hemoglobin 30.6 pg (28.0-34.0); Mean Corpuscular Volume 91.8 fl (81-99); Mean Platelet Volume 10.6 fL (7.4-10.4); Monocytes # 0.7 10^3/uL (0.2-0.9); Monocytes % 15.5 %; Neutrophils # 2.83 10^3/uL (1.8-7.7); Neutrophils % 64.7 %; Nucleated Red Blood Cells % 0 %; Platelet Count 207 10^3/cmm (130-400); Red Cell Distribution Width 13.5 % (12.1-15.1); White Blood Count 4.4 10^3/uL (4.0-10.0)
[2023-02-07 10:13] LABS: HCG, Serum Qual Negative (Negative)
[2023-02-07 10:15] LABS: Alanine Aminotransferase 10 U/L (0-33); Albumin Level 4.5 g/dL (3.5-5.2); Alkaline Phosphatase 152 U/L (35-105); Anion Gap 17.2 (5-19); Aspartate Amino Transferase 10 U/L (0-32); Blood Urea Nitrogen 9 mg/dL (6-20); Calcium 9.7 mg/dL (8.5-10.5); Carbon Dioxide 25 mmol/L (22-29); Chloride 103 mmol/L (98-107); Globulin 3.6 g/dL (1.3-4.6); Glomerular Filtration Rate 106.3 mL/min (90-130); Glucose 78 mg/dL (65-115); Lipase 24 U/L (13-60); Osmolality Calculated 292 mOsm/kg (285-295); Potassium 3.2 mmol/L (3.5-5.1); Sodium 142 mmol/L (136-145); Total Bilirubin 0.2 mg/dL (0.15-1.2); Total Protein 8.1 g/dL (6.6-8.7)
[2023-02-07] MEDS: sodium chloride 0.9% 1,000 ML 999 ML IV (10:20)
[2023-02-07] MEDS: ondansetron 2 mg/ML SDV 2 mL 4 MG IVP (10:21)
[2023-02-07 10:22] LABS: Add Urine Culture? No; Add Urine Microscopic? YES; Bacteria Urine 1+ /hpf; Bilirubin Urine 1+ (Negative); Blood Urine 3+ (Negative); Glucose Urine UA Norm (Normal); Ketones Urine 1+ (Negative); Leukocyte Esterase Urine Trace (Negative); Mucus Urine 3+ /hpf; Nitrate Urine Negative (Negative); Protein Urine Trace (Negative); Specific Gravity, Urine 1.015 (1.005-1.030); Squamous Epithelial Cell Urine 25-40 /hpf (0-5); Urine Appearance Hazy (CLEAR); Urine Color Yellow (Yellow); Urobilinogen Urine Norm (Negative); WBC Urine 0-4 /hpf (0-5); pH Urine 6 (5-7)
[2023-02-07] MEDS: ketorolac 30 mg/mL INJ IVP (10:23)
[2023-02-07] MEDS: dexamethasone 10 mg/mL INJ IM (11:09)
[2023-02-07] MEDS: tizanidine 4 mg Tablet PO (11:09)
[2023-02-07 11:42] LABS: Charge for UA Resulting for Rev
[2023-02-07 12:01] LABS: Blood Urine 3+ (Negative); Glucose Urine UA Norm (Normal); Ketones Urine Negative (Negative); Nitrate Urine Negative (Negative); Protein Urine Trace (Negative); Urine Appearance Clear (CLEAR); pH Urine 7 (5-7)
[2023-02-07 12:02] LABS: Add Urine Microscopic? YES; Bilirubin Urine 1+ (Negative); Leukocyte Esterase Urine Negative (Negative)
[2023-02-07 12:04] LABS: Urobilinogen Urine Norm (Negative)
[2023-02-07 12:06] LABS: Urine Color Yellow (Yellow)
--- NOTE | 2023-02-07 13:16 | PC.NURSE ---
Assumed care of patient at 1300.
== END 2023-02-07 15:46 | disposition home or self-care (01) ==
PROVIDERS: Physician Assistant; Emergency Provider Family Medicine; PCP Nurse Practitioner Family
DX: M54.9 Dorsalgia, unspecified (principal); F17.210 Nicotine dependence, cigarettes, uncomplicated; E78.5 Hyperlipidemia, unspecified
CPT/HCPCS: 36415; 80053; 81001; 81003; 83690; 84703; 85025; 87040; 96361; 96372; 96374; 96375; 99284; J1100; J1885; J2405; J7030

== ENCOUNTER 2023-02-14 19:53 | Emergency (ER) | payer MEDICARE, SELFPAY ==
[2023-02-14 20:43] VITALS: BP 124/82; PULSE 82; RESP 16; TEMP 36.5; O2SAT 98; BMI 25.8
--- NOTE | 2023-02-14 21:17 | ED_ITS ---
HPI - Skin/Abscess/Foreign Bdy General: Chief complaint: Skin/Abscess/Foreign Body Stated complaint: Rt Arm Dog Tear Time Seen by Provider: 02/14/23 21:17 History of Present Illness: 47-year-old female comes in today for injury to the right forearm. Patient had 2 dogs that were fighting and she intervened with the pets to stop them from fighting and was bit on the right forearm. Patient has a V-shaped skin flap laceration approximately 3 cm. Patient appears nontoxic. Patient appears in no acute distress. Patient reports immunizations are up-to-date. Patient reports the dog's rabies shots are up-to-date. Review of Systems General: Reports: 10 or more systems reviewed and unremarkable except in HPI and below Skin/Breast: Reports: other (Laceration right forearm) [facility] ED PFSH: Medical History (Updated 02/14/23 @ 22:00 by HEIDI Parson) Bipolar disorder, current episode hypomanic High risk medication use Hyperlipidemia Hypothyroidism Neuropathy of right sciatic nerve Smoker Tachycardia Social History Smoking and tobacco status: current every day smoker cigarettes Alcohol intake: never Substance/Drug Use: never Current gender identity: Female Physical Exam Const: COMMON NORMALS: alert HENMT: COMMON NORMALS: normocephalic HEAD & SCALP: normocephalic Neck/C-Spine: COMMON NORMALS: full ROM Resp: COMMON NORMALS: normal respiratory effort Cardio: COMMON NORMALS: regular rate RATE: regular rate Back/Pelvis: COMMON NORMALS: thoracic and lumbar spine normal to inspection Extremity: RIGHT UPPER EXTREMITY: Yes lower arm (3 cm flap laceration right inner forearm, bruising) Right lower arm: Yes inspection, Yes palpation and Yes neurovascular exam Neuro: SENSORIUM/ORIENTATION: Yes alert Skin: TRAUMA: laceration (Right forearm) L-shaped (3 cm) and flap Procedures Laceration Laceration 1: Site: upper extremity Side (If applicable): right Size (cm): 3 Description: flap Depth: simple, single layer Local Anesthetic: lidocaine 1% Amount of anesthesia used (mL): 3 Pre-repair: wound explored and irrigated extensively Skin layer closed with: nylon Size (cm): 4-0 Number of sutures: 3 Technique: simple, interrupted Course Vital Signs: Vital signs: Vital Signs Temperature 97.7 F 07/07/23 20:43 Pulse Rate 82 02/14/23 20:43 Respiratory Rate 16 02/14/23 20:43 Blood Pressure 124/82 02/14/23 20:43 Pulse Oximetry 98 02/14/23 20:43 Oxygen Delivery Me thod Room Air 02/14/23 20:43 MDM - Skin/Abscess/Foreign Bdy Medicial Decision Making 47-year-old female comes in for injury to the right inner forearm. On exam patient has laceration that is L-shaped in the first layer of skin with exposure to the subcutaneous fat to the right inner forearm. Normal range of motion. Some ecchymosis is noted in the area. No foreign body was noted in the wound. Differential diagnosis includes need for immunization against tetanus, need for immunization against rabies, foreign body, fracture, laceration. No signs of foreign body or fracture was noted. Patient has bruising to the arm. Wound was repaired with sutures. Patient tolerated well. Patient be kept on antibiotics for prevention of infection. Patient reported understanding of care plan and need for follow-up or return to the ER. Discharge Plan Discharge Patient Disposition: Home Clinical Impression: Dog bite of forearm Qualifiers: Encounter type: initial encounter Laterality: right Qualified Code(s): S51.851A - Open bite of right forearm, initial encounter Condition: Stable Prescriptions: New doxycycline monohydrate 100 mg capsule 100 mg PO BID 7 Days Qty: 14 0RF No Action albuterol sulfate 2.5 mg /3 mL (0.083 %) solution for nebulization 2.5 mg INHALATION Q4H PRN (Reason: shortness of breath or wheezing) Qty: 75 0RF sertraline [Zoloft] 100 mg tablet 150 mg PO DAILY Qty: 30 2RF Rx Instructions: cyanocobalamin (vitamin B-12) 1,000 mcg/mL kit 1,000 mcg IM .every 2 weeks 56 Days Qty: 2 2RF Rx Instructions: pt states she usually takes on alprazolam [Xanax] 2 mg tablet 2 mg PO DAILY PRN (Reason: anxiety) Qty: 30 0RF quetiapine 300 mg tablet 600 mg PO DAILY [id number]-[id number]-bsv-cod [id number] mg capsule 1 cap PO Q4H PRN (Reason: Headache) atorvastatin 20 mg tablet 20 mg PO DAILY ezetimibe [Zetia] 10 mg tablet 10 mg PO DAILY potassium chloride 10 mEq capsule, extended release 10 meq PO DAILY gabapentin 100 mg capsule 300 mg PO DAILY Qty: 90 5RF levothyroxine 125 mcg tablet 125 mcg PO DAILY omeprazole 40 mg Capsule,Delayed Release(Dr/Ec) 40 mg PO DAILY albuterol sulfate 90 mcg/actuation HFA aerosol inhaler 2 inh inhalation Q6H PRN (Reason: shortness of breath or wheezing) Qty: 1 0RF doxepin 25 mg capsule 25 mg PO DAILY montelukast 10 mg tablet 10 mg PO DAILY tizanidine 4 mg tablet 4 mg PO Q6H PRN (Reason: muscle spasticity) Qty: 20 0RF Rx Instructions: do not exceed 3 doses per 24 hrs diclofenac sodium 75 mg tablet,delayed release (DR/EC) 75 mg PO Q12H PRN (Reason: pain) Qty: 20 0RF prednisone 20 mg tablet 20 mg PO TID Qty: 15 0RF Rx Instructions: 1 p.o. 3 times daily x3 days, 1 p.o. twice daily x2 days, 1 p.o. daily x2 days Discharge Orders: Discharge ED (Routine); Ordered 02/14/23 Ordered By: Zack Martinez Referrals: Kayleen Suggs FNP [Primary Care Provider] - Discharge Diet: Usual diet Discharge Activity: Increase activity as tolerated Patient Instructions: Animal Bite (ED) Activity Restrictions/Additional Instructions: Keep wound clean and dry. Activity as tolerated. Use acetaminophen and ibuprofen for pain. Take oral antibiotic twice a day for 7 days. Sutures need to come out in 7 to 10 days. Return to ED for new concerns. Coding Level of Care Code ED Cephalometric Analyst for Brett Guevara
[2023-02-14] MEDS: doxycycline 100 mg Tablet PO (22:10)
[2023-02-14] MEDS: lidocaine 1% INJ 10 mL (per mL) INJECTION (22:13)
== END 2023-02-14 22:15 | disposition home or self-care (01) ==
PROVIDERS: Emergency Provider Nurse Practitioner Family; PCP Nurse Practitioner Family
DX: S51.851A Open bite of right forearm, initial encounter (principal); W54.0XXA Bitten by dog, initial encounter; E78.5 Hyperlipidemia, unspecified; F17.210 Nicotine dependence, cigarettes, uncomplicated
CPT/HCPCS: 12002; 99283

== ENCOUNTER → 2024-11-11 08:37 | Outpatient (BNVA) | payer MEDICARE, SELFPAY | PROVIDERS: PCP Nurse Practitioner Family; Visit Provider Podiatrist Foot & Ankle Surgery | DX: L60.3 Nail dystrophy (principal); Q82.8 Other specified congenital malformations of skin | CPT/HCPCS: 99203 ==

== ENCOUNTER → 2024-12-09 08:39 | Outpatient (BNVA) | payer MEDICARE, SELFPAY | PROVIDERS: PCP Nurse Practitioner Family; Visit Provider Podiatrist Foot & Ankle Surgery | DX: I73.9 Peripheral vascular disease, unspecified (principal); L60.3 Nail dystrophy; Q82.8 Other specified congenital malformations of skin; M20.41 Other hammer toe(s) (acquired), right foot; M20.42 Other hammer toe(s) (acquired), left foot; G62.9 Polyneuropathy, unspecified | CPT/HCPCS: 99213 ==

== ENCOUNTER 2024-12-26 08:04 | Emergency (ER) | payer MEDICARE, SELFPAY ==
--- NOTE | 2024-12-26 08:05 | XRR_ITS ---
PROCEDURE INFORMATION: Exam: XR Right Knee Exam date and time: 12/26/2024 8:18 AM Age: 49 years old Clinical indication: Injury or trauma; Fall; Blunt trauma; Knee; Right TECHNIQUE: Imaging protocol: Radiologic exam of the right knee. Views: 3 views. Total images: 805 COMPARISON: CR XR foot RT min 3V* [id number] 08/17/2019 12:42 PM FINDINGS: Bones/joints: Nondisplaced comminuted patellar fracture. Large joint fluid most likely hemoarthrosis. No additional fracture, subluxation, or dislocation detected. Soft tissues: Anterior soft tissue swelling/contusion. XR/XR knee RT 3V* [id number] IMPRESSION: 1. Nondisplaced comminuted patellar fracture. 2. Anterior soft tissue swelling/contusion. 3. Large joint fluid most likely hemoarthrosis.
[2024-12-26 08:17] VITALS: BP 175/78; PULSE 68; RESP 17; TEMP 36.6; O2SAT 97; BMI 25.8
--- NOTE | 2024-12-26 08:21 | W.ED.EXTPRO ---
HPI - Extremity Problem General: Chief complaint: Extremity Injury, Lower Stated complaint: right knee injury Time Seen by Provider: 12/26/24 08:18 Source: patient Mode of arrival: ambulatory Limitations: no limitations History of Present Illness: 49-year-old female states that she fell yesterday in the parking lot at [employer]'s landed on her right knee. States has been having right knee pain since then she rates an 8 out of 10 has not been able to ambulate on that leg. Denies any other injuries denies hitting her head. Associated symptoms: Deny chest pain, fever(s) or rash Related Data Home Medications ?Medication ?Instructions ?Recorded ?Confirmed butalbital 50 mg-acetaminophen 300 1 cap PO Q4H PRN Headache 08/17/19 12/09/24 mg-caffeine 40 mg-codeine 30 mg cap quetiapine 300 mg tablet 600 mg PO DAILY 08/17/19 12/09/24 atorvastatin 20 mg tablet 20 mg PO DAILY 11/03/19 12/09/24 ezetimibe 10 mg tablet (Zetia) 10 mg PO DAILY 11/03/19 12/09/24 potassium chloride 10 mEq 10 meq PO DAILY 11/03/19 12/09/24 capsule,extended release omeprazole 40 mg capsule,delayed 40 mg PO DAILY 01/26/20 12/09/24 release levothyroxine 125 mcg tablet 125 mcg PO DAILY 09/04/20 12/09/24 doxepin 25 mg capsule 25 mg PO DAILY 02/07/23 12/09/24 montelukast 10 mg tablet 10 mg PO DAILY 02/07/23 12/09/24 Previous Rx's ?Medication ?Instructions ?Recorded albuterol sulfate 2.5 mg/3 mL 2.5 mg (3 mL) inhalation Q4H PRN 09/09/19 (0.083 %) solution for nebulization shortness of breath or wheezing #75 mL gabapentin 100 mg capsule 300 mg (3 x 100 mg) PO DAILY #90 11/03/19 caps cyanocobalamin (vitamin B-12) 1,000 mcg IM .every 2 weeks B12 12/06/19 1,000 mcg/mL injection kit deficiency 8 weeks #2 ea sertraline 100 mg tablet (Zoloft) 150 mg (1.5 x 100 mg) PO DAILY #30 12/06/19 tabs alprazolam 2 mg tablet (Xanax) 2 mg PO DAILY PRN anxiety #30 tabs 12/24/19 albuterol sulfate 90 mcg/actuation 2 inh inhalation Q6H PRN shortness 08/20/20 aerosol inhaler of breath or wheezing #1 g diclofenac sodium 75 mg 75 mg PO Q12H PRN pain #20 tabs 02/07/23 tablet,delayed release prednisone 20 mg tablet 20 mg PO TID #15 tabs 02/07/23 tizanidine 4 mg tablet 4 mg PO Q6H PRN muscle spasticity 02/07/23 #20 tabs hydrocodone 5 mg-acetaminophen 325 1 tab PO Q6H PRN pain #14 tabs 12/26/24 mg tablet Allergies Allergy/AdvReac Type Severity Reaction Status Date / Time ceftriaxone (From Rocephin) Allergy ALGY-Rash Verified 12/09/24 08:47 hydromorphone Allergy ALGY-Rash Verified 12/09/24 08:47 Duladid Allergy Intermediate ALGY-Rash Uncoded 12/09/24 08:47 Review of Systems Const: Denies: fever(s), chills, body aches or change in appetite ENMT: Denies: throat pain or dental pain Card: Denies: chest pain Resp: Denies: dyspnea GI: Denies: abdominal pain, nausea, vomiting or diarrhea Musc: Reports: extremity pain; Denies: neck pain or back pain Skin/Breast: Denies: rash Neuro: Denies: headache(s) PFSH ED PFSH: Medical History High risk medication use Bipolar disorder, current episode hypomanic Neuropathy of right sciatic nerve Hyperlipidemia Tachycardia Hypothyroidism Smoker Social History Smoking and tobacco/nicotine status: current every day tobacco/nicotine user cigarettes Alcohol intake: never Substance/Drug Use: never Current gender identity: Female Physical Exam Const: COMMON NORMALS: no acute distress, patient oriented x3 and healthy appearing HENMT: COMMON NORMALS: normocephalic and atraumatic HEAD & SCALP: normocephalic and atraumatic Eye: COMMON NORMALS: conjunctivae normal CONJUNCTIVA: Yes conjunctivae normal Neck/C-Spine: COMMON NORMALS: full ROM and supple Chest: COMMONS NORMALS: normal inspection of the chest Resp: COMMON NORMALS: normal respiratory effort Cardio: COMMON NORMALS: regular rate, regular rhythm and No murmurs present (Cardio) RATE: regular rate RHYTHM: regular rhythm Extremity: NARRATIVE EXTREMITY EXAM: tenderness over right knee with swelling and abrasions Neuro: COMMON NORMALS: patient oriented x3, moves all extremities and no focal motor deficits Psych: COMMON NORMALS: mental status grossly normal, Normal thought process present and cooperative THOUGHT PROCESS: Normal thought process present Skin: COMMON NORMALS: no rashes or lesions noted and no wounds GENERAL SKIN EXAM: no rashes or lesions noted Course Vital Signs: Vital signs: Vital Signs Temperature 97.8 F 12/26/24 08:17 Pulse Rate 68 12/26/24 08:17 Respiratory Rate 17 12/26/24 08:17 Blood Pressure 175/78 12/26/24 08:17 Pulse Oximetry 97 12/26/24 08:17 Oxygen Delivery Me thod Room Air 12/26/24 08:17 MDM - Extremity (Nontraumatic) Medical Decision Making Patient presents here with a patellar fracture from a fall we will place immobilizer along with crutches she is to be nonweightbearing we will have her follow-up orthopedics return if worsening Medical Records I reviewed the patient's medical records. XR interpretation done by ED provider, pending radiology final review ED provider radiology interpretation(s): xr knee: patella fx Discharge Plan Discharge Patient Disposition: Home Clinical Impression: Closed fracture of right patella Condition: Stable Prescriptions: New hydrocodone-acetaminophen 5-325 mg tablet 1 tab PO Q6H PRN (Reason: pain) Qty: 14 0RF No Action albuterol sulfate 2.5 mg /3 mL (0.083 %) solution for nebulization 2.5 mg INHALATION Q4H PRN (Reason: shortness of breath or wheezing) Qty: 75 0RF sertraline [Zoloft] 100 mg tablet 150 mg PO DAILY Qty: 30 2RF Rx Instructions: cyanocobalamin (vitamin B-12) 1,000 mcg/mL kit 1,000 mcg IM .every 2 weeks 56 Days Qty: 2 2RF Rx Instructions: pt states she usually takes on alprazolam [Xanax] 2 mg tablet 2 mg PO DAILY PRN (Reason: anxiety) Qty: 30 0RF quetiapine 300 mg tablet 600 mg PO DAILY [id number]-sxkldmurwf-qsd-cod [id number] mg capsule 1 cap PO Q4H PRN (Reason: Headache) atorvastatin 20 mg tablet 20 mg PO DAILY ezetimibe [Zetia] 10 mg tablet 10 mg PO DAILY potassium chloride 10 mEq capsule, extended release 10 meq PO DAILY gabapentin 100 mg capsule 300 mg PO DAILY Qty: 90 5RF levothyroxine 125 mcg tablet 125 mcg PO DAILY omeprazole 40 mg Capsule,Delayed Release(Dr/Ec) 40 mg PO DAILY albuterol sulfate 90 mcg/actuation HFA aerosol inhaler 2 inh inhalation Q6H PRN (Reason: shortness of breath or wheezing) Qty: 1 0RF doxepin 25 mg capsule 25 mg PO DAILY montelukast 10 mg tablet 10 mg PO DAILY tizanidine 4 mg tablet 4 mg PO Q6H PRN (Reason: muscle spasticity) Qty: 20 0RF Rx Instructions: do not exceed 3 doses per 24 hrs diclofenac sodium 75 mg tablet,delayed release (DR/EC) 75 mg PO Q12H PRN (Reason: pain) Qty: 20 0RF prednisone 20 mg tablet 20 mg PO TID Qty: 15 0RF Rx Instructions: 1 p.o. 3 times daily x3 days, 1 p.o. twice daily x2 days, 1 p.o. daily x2 days Discharge Orders: Discharge ED (Routine); Ordered 12/26/24 Ordered By: Christine De Paz Referrals: Kirk Iraheta DO [Physician, Orthopedics] - 4-7 days Kayleen Suggs FNP [Primary Care Provider, Unknown] Discharge Diet: Advance as tolerated Discharge Activity: Limit activity as instructed and Use walker/crutches as instructed Patient Instructions: Patellar Fracture (ED), Opioid Safety Print Language: Par[place]ayan Coding Level of Care Code ED Career Representative for Brett Guevara
[2024-12-26] MEDS: HYDROcodone-acetaminophen 5-325 mg Tablet 1 TAB PO (08:24)
--- NOTE | 2024-12-29 09:18 | DCPLANNER ---
Message sent to Ortho for follow up- Patient presents here with a patellar fracture from a fall we will place immobilizer along with crutches she is to be nonweightbearing we will have her follow-up orthopedics return if worsening
== END 2024-12-26 08:58 | disposition home or self-care (01) ==
PROVIDERS: Emergency Provider Emergency Medicine; PCP Nurse Practitioner Family
DX: S82.001A Unspecified fracture of right patella, initial encounter for closed fracture (principal); F17.210 Nicotine dependence, cigarettes, uncomplicated; E78.5 Hyperlipidemia, unspecified; W19.XXXA Unspecified fall, initial encounter
CPT/HCPCS: 29530; 73562; 99283; J9999

== ENCOUNTER 2024-12-30 08:26 | Observation (INO) | payer MEDICARE, SELFPAY ==
[2024-12-30] VITALS (8 sets, daily range): BP systolic 102–137; BP diastolic 70–87; PULSE 86–113; RESP 17–24; TEMP 36.3–36.8; O2SAT 95–100; BMI 25.8; BMI 26.2
--- NOTE | 2024-12-30 08:44 | ECG_ITS ---
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 Measurements Intervals [place] Rate: 104 P: 67 [place]: 132 QRS: 73 QRSD: 82 T: -70 QT: 356 QTc: 470 Interpretive Statements SINUS TACHYCARDIA ST DEVIATION AND MODERATE T-WAVE ABNORMALITY, CONSIDER LATERAL ISCHEMIA [-0.1+ mV T-WAVE IN I/aVL/V5/V6] ST DEVIATION AND MODERATE T-WAVE ABNORMALITY, CONSIDER INFERIOR ISCHEMIA [-0.1+ mV T-WAVE IN II/aVF] Compared to ECG 08/20/2020 14:25:31 T-wave abnormality now present Possible ischemia now present Sinus rhythm no longer present Electronically Signed On 12-30-2024 18:03:48 CDT by Radha Grayson M.D. [email or web address]
--- NOTE | 2024-12-30 08:44 | CT_ITS ---
WS: [id number] CT HEAD TECHNIQUE: Noncontrast CT of the head obtained from the skullbase to the vertex. CLINICAL INFORMATION: r sided weakness x 3 days COMPARISON: None. DLP: 983.[address] scans at [facility] use at least one of these dose optimization techniques: automated exposure control; mA and/or kV adjustment per patient size (includes targeted exams where dose is matched to clinical indication); or iterative reconstruction. FINDINGS: No evidence of intracranial hemorrhage or mass effect. Ventricular system and basal cisterns are patent. Mild parenchymal volume loss. No extra-axial fluid collections. No evidence of mass or mass effect. Paranasal sinuses are well aerated. Chronic sclerosis LEFT mastoid with mucosal thickening LEFT mastoid tip. CT/CT head wo con* [id number] IMPRESSION: 1. No evidence of intracranial hemorrhage or mass effect. 2. No acute intracranial findings.
--- NOTE | 2024-12-30 09:03 | ED_ITS ---
HPI - Nausea/Vomiting/Diarrhea 2 General: Chief complaint: Nausea/Vomiting/Diarrhea Stated complaint: n,v, face numbness Time Seen by Provider: 12/30/24 08:43 History of Present Illness: 49-year-old female presents emergency ro om complaining of nausea vomiting short of breath and facial numbness and right-sided weakness. No focal neurologic deficits symptoms began 3 days ago. Facial numbness. No chest pain. Patient reports nausea vomiting. No hematemesis or coffee-ground emesis. Associated nausea: Yes Associated symtoms: Reports nausea; Denies chest pain or dysuria Related Data Previous Rx's ?Medication ?Instructions ?Recorded promethazine 25 mg tablet 25 mg PO Q6H PRN nausea and 12/30/24 vomiting #20 tabs albuterol sulfate 2.5 mg/3 mL 2.5 mg (3 mL) inhalation Q4H PRN 12/31/24 (0.083 %) solution for nebulization shortness of breat h or wheezing #75 mL albuterol sulfate 90 mcg/actuation 2 inh inhalation Q6 H PRN shortness 12/31/24 aerosol inhaler of breath or wheezing #1 g alprazolam 2 mg tablet (Xanax) 2 mg PO DAILY PRN anxie ty #5 tabs 12/31/24 atorvastatin 20 mg tablet 20 mg PO DAILY #30 tabs 12/10 11/02 butalbital 50 mg-acetaminophen 300 1 cap PO Q4H PRN He adache #15 caps 12/31/24 mg-caffeine 40 mg-codeine 30 mg cap doxepin 25 mg capsule 25 mg PO DAILY #30 caps 12/10 11/02 ezetimibe 10 mg tablet (Zetia) 10 mg PO DAILY #30 tabs 12/31/24 gabapentin 100 mg capsule 300 mg (3 x 100 mg) PO DAILY #90 12/31/24 caps levothyroxine 125 mcg tablet 125 mcg PO DAILY #30 tabs 12/31/24 metoprolol tartrate 25 mg tablet 25 mg PO DAILY #30 ta bs 12/31/24 montelukast 10 mg tablet 10 mg PO DAILY #30 tabs 12/10 11/02 omeprazole 40 mg capsule,delayed 40 mg PO DAILY #30 ca ps 12/31/24 release potassium chloride 10 mEq 10 meq PO DAILY #30 caps capsule,extended release quetiapine 300 mg tablet 600 mg (2 x 300 mg) PO QPM # 60 tabs 12/31/24 sertraline 100 mg tablet 150 mg (1.5 x 100 mg) PO MAURI LY #30 12/31/24 tabs sodium di- and 1 tab PO TID #10 tabs monophosphate-potassium phos monobasic 250 mg tablet (Phospha Neutral) Allergies Allergy/AdvReac Type Severity Reaction Status Date / Time ceftriaxone (From Rocephin) Allergy ALGY-Rash Verified 01/04/25 10:28 hydromorphone Allergy ALGY-Rash Verified 01/04/25 10:28 Duladid Allergy Intermediate ALGY-Rash Uncoded 01/04/25 10:28 Review of Systems 2 Const: Denies: fever(s) or chills Card: Denies: chest pain Resp: Reports: dyspnea GI: Reports: nausea and vomiting; Denies: abdominal pain : Denies: dysuria, urinary frequency or urinary urgency Musc: Denies: neck pain or back pain Skin/Breast: Denies: rash PFSH ED 2 PFSH: Medical History Hyperlipidemia High risk medication use Bipolar disorder, current episode hypomanic Neuropathy of right sciatic nerve Tachycardia Hypothyroidism Smoker Social History Smoking and tobacco/nicotine status: current every day tobacco/nicotine user cigarettes Packs smoked per day: 1 Alcohol intake: never Substance/Drug Use: never Additional social history: 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, 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, 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 Household members: spouse Current gender identity: Female Physical Exam 2 Const: GENERAL APPEARANCE: cooperative ORIENTATION/CONSCIOUSNESS: Yes awake, Yes oriented to person, Yes oriented to place and Yes oriented to time HENMT: COMMON NORMALS: normocephalic, atraumatic and hearing grossly normal bilaterally HEAD & SCALP: normocephalic and atraumatic Resp: COMMON NORMALS: normal respiratory effort, No retractions, No use of accessory muscles and clear to auscultation bilaterally EFFORT & INSPECTION: Yes tachypneic AUSCULTATION: clear to auscultation bilaterally Cardio: COMMON NORMALS: regular rate, regular rhythm and No murmurs present (Cardio) RATE: regular rate RHYTHM: regular rhythm GI: COMMON NORMALS: Soft to palpation and No hepatosplenomegaly present A USCULTATION: Yes normoactive bowel sounds PALPATION: Yes Soft to palpation, No Tenderness to palpation present (GI), No Guarding due to palpation present (GI) and Yes No hepatosplenomegaly present Extremity: COMMON NORMALS: normal to inspection, capillary refill normal, no clubbing, cyanosis or edema, no calf tenderness and no pedal edema Neuro: SENSORIUM/ORIENTATION: Yes oriented to person, Yes oriented to place and Yes oriented to time Skin: COMMON NORMALS: no rashes or lesions noted GENERAL SKIN EXAM: no rashes or lesions noted Course 2 Vital Signs: Vital signs: Vital Signs Temperature 98.3 F 12/31/24 11:57 Pulse Rate 90 12/31/24 12:32 Respiratory Rate 16 12/31/24 11:57 Blood Pressure 105/70 12/31/24 12:32 Pulse Oximetry 94 12/31/24 12:32 Oxygen Delivery Me thod Room Air 12/31/24 11:57 MDM - Nausea/Vomiting/Diarrhea Medical Decision Making Cardiac enzymes and EKG unremarkable EKG reviewed as found in the chart. Sinus rhythm occasional PVCs. EKG does have T wave inversion in the inferior and lateral leads compared to EKG from August 2020. Her troponins trended negative. Reviewed the EKGs with Dr. Grayson and we repeated another EKG these findings are persistent across all the EKGs today. She is not currently having any chest pain. Dr. Grayson recommended observation and stress testing discussed with hospitalist. Medical Records I reviewed the patient's medical records. Lab Data I reviewed the patient's lab results. 12/30/24 09:17 12/30/24 09:[address] 12/30/24 08:44 IMPRESSION: 1. No evidence of intracranial hemorrhage or mass effect. 2. No acute intracranial findings. Laboratory Results WBC 8.48 10^3/uL (3.29-11.43) 12/30/24 09:17 RBC 5.62 10^6/uL (3.85-5.65) 12/30/24 09:17 Hgb 17.00 g/dL (11.27-16.99) H 12/30/24 09:17 Hct 50.5 % (36-47) H 12/30/24 09:17 MCV 89.9 fl (85-98) 12/30/24 09:17 MCH 30.2 pg (27-33) 12/30/24 09:17 MCHC 33.7 g/dL (30-55) 12/30/24 09:17 RDW 13.3 % (12.1-15.1) 12/30/24 09:17 Plt Count 257 10^3/cmm (157-399) 12/30/24 09:17 MPV 11.0 fL (7.4-10.4) H 12/30/24 09:17 Neut % (Auto) 69.6 % 12/30/24 09:17 Lymph % (Auto) 18.8 % 12/30/24 09:17 [place]th[place]omew % (Auto) 8.8 % 12/30/24 09:17 Eos % (Auto) 1.7 % 12/30/24 09:17 Baso % (Auto) 0.6 % 12/30/24 09:17 Neut # (Auto) 5.91 10^3/uL (1.8-7.7) 12/30/24 09:17 Lymph # (Auto) 1.6 10^3/uL (0.8-4.8) 12/30/24 09:17 Bartholomew # (Auto) 0.8 10^3/uL (0.2-0.9) 12/30/24 09:17 Eos # (Auto) 0.1 10^3/uL (0.0-0.8) 12/30/24 09:17 Baso # (Auto) 0.1 10^3/uL (0.0-0.1) 12/30/24 09:17 Nucleated RBC % (auto) 0 % 12/30/24 09:17 Nucleated RBCs # 0.0 /100WBC 12/30/24 09:17 Specimen Type Arterial 12/30/24 09:13 Sample Site Radial, right 12/30/24 09:13 ABG pH 7.57 (7.35-7.45) H* 12/30/24 09:13 ABG pCO2 18.4 mmHg (35-45) L* 12/30/24 09:13 ABG pO2 128.0 mmHg (80.0-100.0) H 12/30/24 09:13 ABG PO2/FiO2 Ratio 609 12/30/24 09:13 ABG HCO3 16.9 mmol/L (22-26) L 12/30/24 09:13 ABG O2 Saturation 98.3 12/30/24 09:13 ABG Base Excess -1.9 mmol/L (-2.0-2.0) 12/30/24 09:13 Marek Test Pos 12/30/24 09:13 A-a O2 Gradient Not Reportable 12/30/24 09:13 Hematocrit 50.9 % (37-47) H 12/30/24 09:13 Hgb O2 Saturation 96.1 % (95-100) 12/30/24 09:13 Carboxyhemoglobin 2.3 %THgb (0.4-20.1) 12/30/24 09:13 Methemoglobin 0.0 % (0.4-1.5) L 12/30/24 09:13 Total Hemoglobin 16.6 g/dL (12-16) H 12/30/24 09:13 Sodium 136.0 mmol/L (131-143) 12/30/24 09:13 Potassium 3.1 mmol/L (3.5-5.0) L 12/30/24 09:13 Glucose 97.0 mg/dL (70-115) 12/30/24 09:13 Ionized Calcium 1.2 mmol/L (1.1-1.4) 12/30/24 09:13 O2 Delivery Device None 12/30/24 09:13 FiO2 21.0 % 12/30/24 09:13 Caster Helper ID glc 12/30/24 09:13 Sodium 136 mmol/L (136-145) 12/30/24 09:17 Potassium 3.3 mmol/L (3.5-5.1) L 12/30/24 09:17 Chloride 94 mmol/L (98-107) L 12/30/24 09:17 Carbon Dioxide 20 mmol/L (22-29) L 12/30/24 09:17 Anion Gap 25.3 (5-19) H 12/30/24 09:17 BUN 24 mg/dL (6-20) H 12/30/24 09:17 Creatinine 1.1 mg/dL (0.5-0.9) H 12/30/24 09:17 GFR Calculation 52.4 mL/min (90-130) L 12/30/24 09:17 Glucose 92 mg/dL (65-115) 12/30/24 09:17 Calculated Osmolality 286 mOsm/kg (285-295) 12/30/24 09:17 Calcium 10.5 mg/dL (8.5-10.5) 12/30/24 09:17 Phosphorus 1.9 mg/dL (2.5-4.5) L 12/30/24 09:17 Magnesium 2.4 mg/dL (1.7-2.3) H 12/30/24 09:17 Total Bilirubin 0.5 mg/dL (0.15-1.2) 12/30/24 09:17 AST 16 U/L (0-32) 12/30/24 09:17 ALT 18 U/L (0-33) 12/30/24 09:17 Alkaline Phosphatase 189 U/L (35-105) H 12/30/24 09:17 Troponin T Baseline < 6 ng/L (0-10) 12/30/24 09:17 Troponin T 120 Minute < 6.0 ng/L (0-10) 12/30/24 10:58 Delta Troponin T 0 ABS# (0-10) 12/30/24 10:58 Total Protein 8.9 g/dL (6.6-8.7) H 12/30/24 09:17 Albumin 5.1 g/dL (3.5-5.2) 12/30/24 09:17 Globulin 3.8 g/dL (1.3-4.6) 12/30/24 09:17 All radiology interpretation(s) finalized by discharge Discharge Plan Discharge Patient Disposition: Placed in Observation Admit Provider: Clarke Werner Clinical Impression: Hyperventilation, Closed fracture of right patella Discharge Diet: Usual diet and Regular Discharge Activity: Increase activity as tolerated and Limit activity as instructed Coding Level of Care Code ED Investor Relations Specialist for Brett Guevara
[2024-12-30 09:25] LABS: Basophils # 0.1 10^3/uL (0.0-0.1); Basophils % 0.6 %; Eosinophils # 0.1 10^3/uL (0.0-0.8); Eosinophils % 1.7 %; Hematocrit 50.5 % (36-47); Lymphocytes # 1.6 10^3/uL (0.8-4.8); Lymphocytes % 18.8 %; Mean Corpuscular HGB Conc 33.7 g/dL (30-55); Mean Corpuscular Hemoglobin 30.2 pg (27-33); Mean Corpuscular Volume 89.9 fl (85-98); Monocytes # 0.8 10^3/uL (0.2-0.9); Monocytes % 8.8 %; Neutrophils # 5.91 10^3/uL (1.8-7.7); Neutrophils % 69.6 %; Nucleated Red Blood Cells % 0 %; Platelet Count 257 10^3/cmm (157-399); Red Blood Count 5.62 10^6/uL (3.85-5.65); Red Cell Distribution Width 13.3 % (12.1-15.1); White Blood Count 8.48 10^3/uL (3.29-11.43)
[2024-12-30 09:25] LABS: Arterial Blood Gas Hematocrit 50.9 % (37-47); Base Excess ABG -1.9 mmol/L (-2.0-2.0); Blood Gas Allen Test Pos; Blood Gas Operator Identificat glc; Blood Gas Sample Site Radial, right; Blood Gas Sample Type Arterial; Carboxyhemoglobin 2.3 %THgb (0.4-20.1); HCO3 ABG 16.9 mmol/L (22-26); HGB O2 Sat 96.1 % (95-100); Ionized Calcium Level - ABG 1.2 mmol/L (1.1-1.4); Oxygen Saturation ABG 98.3; PO2 FiO2 Ratio Arterial Blood 609; Potassium Level - ABG 3.1 mmol/L (3.5-5.0); Total Hemoglobin 16.6 g/dL (12-16)
[2024-12-30 09:26] LABS: ABG PCO2 18.4 mmHg (35-45); ABG PH Result 7.57 (7.35-7.45)
[2024-12-30 09:50] LABS: Troponin(5th) Baseline < 6 ng/L (0-10)
[2024-12-30 09:51] LABS: Alanine Aminotransferase 18 U/L (0-33); Albumin Level 5.1 g/dL (3.5-5.2); Alkaline Phosphatase 189 U/L (35-105); Anion Gap 25.3 (5-19); Aspartate Amino Transferase 16 U/L (0-32); Blood Urea Nitrogen 24 mg/dL (6-20); Calcium 10.5 mg/dL (8.5-10.5); Carbon Dioxide 20 mmol/L (22-29); Chloride 94 mmol/L (98-107); Globulin 3.8 g/dL (1.3-4.6); Glomerular Filtration Rate 52.4 mL/min (90-130); Glucose 92 mg/dL (65-115); Osmolality Calculated 286 mOsm/kg (285-295); Potassium 3.3 mmol/L (3.5-5.1); Sodium 136 mmol/L (136-145); Total Bilirubin 0.5 mg/dL (0.15-1.2); Total Protein 8.9 g/dL (6.6-8.7)
--- NOTE | 2024-12-30 09:51 | PC.PHAR ---
patient states she hasn't been able to take her medication for about a week because of nausea. Patient also states most medication she is out of and has lost her insurance , so she is unable to have it filled . She has refills but can't afford it.
[2024-12-30] MEDS: sodium chloride 0.9% 1,000 ML 999 ML IV (10:33)
[2024-12-30] MEDS: LORazepam 1 MG/0.5 ML injection IVP (10:33)
--- NOTE | 2024-12-30 11:03 | ECG_ITS ---
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 Measurements Intervals [place] Rate: 94 P: 59 LA: 141 QRS: 62 QRSD: 81 T: 35 QT: 377 QTc: 472 Interpretive Statements SINUS RHYTHM WITH OCCASIONAL VENTRICULAR PREMATURE COMPLEXES MODERATE T-WAVE ABNORMALITY, CONSIDER LATERAL ISCHEMIA [-0.1+ mV T-WAVE IN I/aVL/V5/V6] MODERATE T-WAVE ABNORMALITY, CONSIDER INFERIOR ISCHEMIA [-0.1+ mV T-WAVE IN II/aVF] Compared to ECG 12/30/2024 09:05:39 Ventricular premature complex(es) now present Sinus tachycardia no longer present T-wave abnormality still present Possible ischemia still present Electronically Signed On 12-30-2024 18:18:43 CDT by Radha Grayson M.D. [email or web address]
[2024-12-30 11:45] LABS: Troponin 5 2HR < 6.0 ng/L (0-10); Troponin 5 2HR Delta 0 ABS# (0-10)
--- NOTE | 2024-12-30 12:23 | ECG_ITS ---
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 Measurements Intervals [place] Rate: 90 P: 61 VA: 143 QRS: 61 QRSD: 81 T: 50 QT: 379 QTc: 466 Interpretive Statements SINUS RHYTHM WITH OCCASIONAL ECTOPIC PREMATURE COMPLEXES MODERATE T-WAVE ABNORMALITY, CONSIDER ANTEROLATERAL ISCHEMIA [-0.1+ mV T-WAVE IN V3-V6] MODERATE T-WAVE ABNORMALITY, CONSIDER INFERIOR ISCHEMIA [-0.1+ mV T-WAVE IN II/aVF] Compared to ECG 12/30/2024 11:29:30 Ventricular premature complex(es) no longer present T-wave abnormality still present Possible ischemia still present Electronically Signed On 12-30-2024 18:18:21 CDT by Radha Grayson M.D. [email or web address]
[2024-12-30] MEDS: ibuprofen 800 mg tablet PO (15:11)
--- NOTE | 2024-12-30 16:30 | PM.CONSULT ---
Providers/Reason For Consult Consulting Physician/Specialty*: SHIKHA Grayson MD/cardiology Reason for Consult*: Patient with abnormal EKG and shortness of Requesting Physician: Dr. Werner Attending Physician: Clarke Werner MD Primary Care Provider: HEIDI Prather History of Present Illness History of Present Illness Amber Alvarez is a 49 year old female, is admitted to hospital through the emergency room when she presented with the complaints of palpitation, shortness of breath and heartburns. She was found an abnormal EKG. Her cardiac enzymes are negative. Cardiology consult is requested for further cardiac evaluation and recommendations. This patient has a history of SVT for the last many years. She has been taking metoprolol for this. However for the last several days, she been not able to take the medication since she was not feeling well. Yesterday afternoon, she started having episodes of palpitation. These spells last for several minutes and then subsides to return in few minutes. This has been going on for several times yesterday. She had associated shortness of breath and heartburn. Even though she had palpitations in the past, she never had any heartburns of this nature. She did not have any nausea or vomiting. No sweating. No syncopal episodes. Since the hospital admission, she seems to be feeling better in terms of the shortness of breath and heartburns. She still has the palpitation. She has no previous history for any coronary disease, myocardial infarction or congestive heart failure. She had a stress test sometime ago and was told to be okay. Apparently she could not do a good exercise because of her back pain. Never had any cardiac catheterization. She also has a history of dyslipidemia, vitamin D and vitamin B12 deficiency, history of? Systemic lupus. She has a history of chronic back pain and is on pain medications and also smokes marijuana. No other relative past medical history. She smokes a pack a day for the last more than 30 years. Has been smoking weed for the last 24 years. No alcohol abuse or any other substance abuse. Her grandmother had multiple small heart attacks starting in her 40s?. Maternal uncle had open heart surgery in his 60s. He of heart attack while he was getting ready for a second surgery. Maternal and also had a myocardial infarction in her 60s. No other relevant family history. Review of Systems Narrative: CONSTITUTIONAL: No fever or chills. EYES: No blurring of vision or other visual disturbances lately. ENT: No hoarseness of voice, auditory disturbances or sore throat. CARDIOVASCULAR: As mentioned above. RESPIRATORY: No significant cough. GASTROINTESTINAL: No hematemesis or melena. GENITOURINARY: No dysuria or hematuria. INTEGUMENTARY: No skin rashes or history of skin cancer. NEURO: No transient ischemic attacks or amaurosis. PSYCHIATRIC: No history of psychosis or major depression. HEMATOLOGIC: No bleeding disorders or significant anemia. ENDOCRINE: No history of polyuria or polydipsia. MUSCULOSKELETAL: No recent joint pain or swelling. ALLERGY/IMMUNOLOGY: As mentioned above. Medications/Allergies Home Medications ?Medication ?Instructions ?Recorded ?Confirmed ?Last Taken ?Type butalbital 50 mg-acetaminophen 300 1 cap PO Q4H PRN Headache 08/17/19 12/30/24 Unknown History mg-caffeine 40 mg-codeine 30 mg cap quetiapine 300 mg tablet 300 mg PO QPM 08/17/19 12/30/24 12/22/24 History albuterol sulfate 2.5 mg/3 mL 2.5 mg (3 mL) inhalation Q4H PRN 09/09/19 12/30/24 Unknown Rx (0.083 %) solution for nebulization shortness of breath or wheezing #75 mL atorvastatin 20 mg tablet 20 mg PO DAILY 11/03/19 12/30/24 12/23/24 History ezetimibe 10 mg tablet (Zetia) 10 mg PO DAILY 11/03/19 12/30/24 12/22/24 History gabapentin 100 mg capsule 300 mg (3 x 100 mg) PO DAILY #90 11/03/19 12/30/24 01/25/20 Rx caps potassium chloride 10 mEq 10 meq PO DAILY 11/03/19 12/30/24 01/25/20 History capsule,extended release sertraline 100 mg tablet (Zoloft) 150 mg (1.5 x 100 mg) PO DAILY #30 12/06/19 12/30/24 12/22/24 Rx tabs alprazolam 2 mg tablet (Xanax) 2 mg PO DAILY PRN anxiety #30 tabs 12/24/19 12/30/24 01/25/20 Rx omeprazole 40 mg capsule,delayed 40 mg PO DAILY 01/26/20 12/30/24 01/25/20 History release albuterol sulfate 90 mcg/actuation 2 inh inhalation Q6H PRN shortness 08/20/20 12/30/24 Unknown Rx aerosol inhaler of breath or wheezing #1 g levothyroxine 125 mcg tablet 125 mcg PO DAILY 09/04/20 12/30/24 Unknown History doxepin 25 mg capsule 25 mg PO DAILY 02/07/23 12/30/24 12/22/24 History montelukast 10 mg tablet 10 mg PO DAILY 02/07/23 12/30/24 12/22/24 History hydrocodone 5 mg-acetaminophen 325 1 tab PO Q6H PRN pain #14 tabs 12/26/24 12/30/24 Unknown Rx mg tablet metoprolol tartrate 25 mg tablet 25 mg PO DAILY 12/30/24 12/30/24 12/22/24 History promethazine 25 mg tablet 25 mg PO Q6H PRN nausea and 12/30/24 Unknown Rx vomiting #20 tabs Allergies Allergy/AdvReac Type Severity Reaction Status Date / Time ceftriaxone (From Rocephin) Allergy ALGY-Rash Verified 12/09/24 08:47 hydromorphone Allergy ALGY-Rash Verified 12/09/24 08:47 Duladid Allergy Intermediate ALGY-Rash Uncoded 12/09/24 08:47 PFSH Acute PFSH: Medical History Hyperlipidemia High risk medication use Bipolar disorder, current episode hypomanic Neuropathy of right sciatic nerve Tachycardia Hypothyroidism Smoker Social History (Updated 12/30/24 @ 18:01 by Clarke Werner MD) Smoking and tobacco/nicotine status: current every day tobacco/nicotine user cigarettes Packs smoked per day: 1 Alcohol intake: never Substance/Drug Use: never Additional social history: 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 Not in any acute distress. HEENT: No significant pallor, icterus or lymphadenopathy.Oral cavity: There are no mucous membrane lesions. NECK: Trachea appears to be central. No masses noted. No JVD or thyromegaly appreciated. RESPIRATORY: Chest is symmetrical. No intercostals muscle retraction or any accessory muscle activation. There is no chest wall tenderness. Breath sounds are heard bilaterally. No rales or rhonchi heard. No evidence of any consolidation. BREASTS: Deferred. HEART: The heart sounds are normal. No S3 or S4. No significant murmurs. No pericardial rub ABDOMEN: No vessel pulsations or distention. No tenderness. No organomegaly appreciated. Bowel sounds are normally heard. : Deferred. RECTAL: Deferred. LYMPHATIC: No lymphadenopathy noted in the neck. EXTREMITIES: No edema or cyanosis. No clubbing. MUSCULOSKELETAL: No acute joint deformities or swelling SKIN: There are no significant rashes or ecchymosis NEUROPSYCHIATRIC: The patient is alert and oriented x3. Appears to be in a good mood. No tremors or rigidity noted. Data 12/30/24 09:17 12/30/24 09:17 Other Labs: Laboratory Last Values WBC 8.48 10^3/uL (3.29-11.43) 12/30/24 09:17 RBC 5.62 10^6/uL (3.85-5.65) 12/30/24 09:17 Hgb 17.00 g/dL (11.27-16.99) H 12/30/24 09:17 Hct 50.5 % (36-47) H 12/30/24 09:17 MCV 89.9 fl (85-98) 12/30/24 09:17 MCH 30.2 pg (27-33) 12/30/24 09:17 MCHC 33.7 g/dL (30-55) 12/30/24 09:17 RDW 13.3 % (12.1-15.1) 12/30/24 09:17 Plt Count 257 10^3/cmm (157-399) 12/30/24 09:17 MPV 11.0 fL (7.4-10.4) H 12/30/24 09:17 Neut % (Auto) 69.6 % 12/30/24 09:17 Lymph % (Auto) 18.8 % 12/30/24 09:17 [place] % (Auto) 8.8 % 12/30/24 09:17 Eos % (Auto) 1.7 % 12/30/24 09:17 Baso % (Auto) 0.6 % 12/30/24 09:17 Neut # (Auto) 5.91 10^3/uL (1.8-7.7) 12/30/24 09:17 Lymph # (Auto) 1.6 10^3/uL (0.8-4.8) 12/30/24 09:17 [place] # (Auto) 0.8 10^3/uL (0.2-0.9) 12/30/24 09:17 Eos # (Auto) 0.1 10^3/uL (0.0-0.8) 12/30/24 09:17 Baso # (Auto) 0.1 10^3/uL (0.0-0.1) 12/30/24 09:17 Nucleated RBC % (auto) 0 % 12/30/24 09:17 Nucleated RBCs # 0.0 /100WBC 12/30/24 09:17 Specimen Type Arterial 12/30/24 09:13 Sample Site Radial, right 12/30/24 09:13 ABG pH 7.57 (7.35-7.45) H* 12/30/24 09:13 ABG pCO2 18.4 mmHg (35-45) L* 12/30/24 09:13 ABG pO2 128.0 mmHg (80.0-100.0) H 12/30/24 09:13 ABG PO2/FiO2 Ratio 609 12/30/24 09:13 ABG HCO3 16.9 mmol/L (22-26) L 12/30/24 09:13 ABG O2 Saturation 98.3 12/30/24 09:13 ABG Base Excess -1.9 mmol/L (-2.0-2.0) 12/30/24 09:13 Marek Test Pos 12/30/24 09:13 A-a O2 Gradient Not Reportable 12/30/24 09:13 Hematocrit 50.9 % (37-47) H 12/30/24 09:13 Hgb O2 Saturation 96.1 % (95-100) 12/30/24 09:13 Carboxyhemoglobin 2.3 %THgb (0.4-20.1) 12/30/24 09:13 Methemoglobin 0.0 % (0.4-1.5) L 12/30/24 09:13 Total Hemoglobin 16.6 g/dL (12-16) H 12/30/24 09:13 Sodium 136.0 mmol/L (131-143) 12/30/24 09:13 Potassium 3.1 mmol/L (3.5-5.0) L 12/30/24 09:13 Glucose 97.0 mg/dL (70-115) 12/30/24 09:13 Ionized Calcium 1.2 mmol/L (1.1-1.4) 12/30/24 09:13 O2 Delivery Device None 12/30/24 09:13 FiO2 21.0 % 12/30/24 09:13 Pool Nurse ID glc 12/30/24 09:13 Sodium 136 mmol/L (136-145) 12/30/24 09:17 Potassium 3.3 mmol/L (3.5-5.1) L 12/30/24 09:17 Chloride 94 mmol/L (98-107) L 12/30/24 09:17 Carbon Dioxide 20 mmol/L (22-29) L 12/30/24 09:17 Anion Gap 25.3 (5-19) H 12/30/24 09:17 BUN 24 mg/dL (6-20) H 12/30/24 09:17 Creatinine 1.1 mg/dL (0.5-0.9) H 12/30/24 09:17 GFR Calculation 52.4 mL/min (90-130) L 12/30/24 09:17 Glucose 92 mg/dL (65-115) 12/30/24 09:17 Calculated Osmolality 286 mOsm/kg (285-295) 12/30/24 09:17 Calcium 10.5 mg/dL (8.5-10.5) 12/30/24 09:17 Total Bilirubin 0.5 mg/dL (0.15-1.2) 12/30/24 09:17 AST 16 U/L (0-32) 12/30/24 09:17 ALT 18 U/L (0-33) 12/30/24 09:17 Alkaline Phosphatase 189 U/L (35-105) H 12/30/24 09:17 Troponin T Baseline < 6 ng/L (0-10) 12/30/24 09:17 Troponin T 120 Minute < 6.0 ng/L (0-10) 12/30/24 10:58 Delta Troponin T 0 ABS# (0-10) 12/30/24 10:58 Total Protein 8.9 g/dL (6.6-8.7) H 12/30/24 09:17 Albumin 5.1 g/dL (3.5-5.2) 12/30/24 09:17 Globulin 3.8 g/dL (1.3-4.6) 12/30/24 09:17 EKG 1: My Interpretation: Sinus tachycardia with diffuse ST-T changes in the anterolateral and inferior leads A&P Assessment and plan (1) Abnormal EKG: The abnormal EKG may suggest underlying coronary ischemia. She has no evidence of any medical injury so far. The heartburn symptoms could be related to underlying coronary ischemia. (2) SOB (shortness of breath): Etiology is not clear. COPD could be a contributing factor. No evidence of any heart failure. (3) Heartburn: Her heartburn symptoms are different from what she used to have in the past. So this may suggest underlying coronary ischemia. (4) Palpitations: Patient has a history of SVT. Currently she has sinus tachycardia. At this point, may continue on the current medications. (5) Bipolar disorder, current episode hypomanic: Management as per the primary (6) Peripheral neuropathy: Management as per the primary. Plan The myocardial infarction may be ruled out as the enzymes and EKGs. Procardia would be helpful to evaluate LV function and rule out any other pathology. For further evaluation of the patient's symptoms and the abnormal EKG, a Myocardial perfusion imaging would be appropriate. This was discussed with the patient detail which is understood well. Based on the clinical progress on the results of the above, further recommendations will be made. Thank you for the opportunity to evaluate this patient and make these recommendations PDMP PDMP Reviewed: Not Reviewed Coding Level of Care Code 02440 Diagnoses Abnormal EKG R94.31 SOB (shortness of breath) R06.02 Heartburn R12 Palpitations R00.2 Bipolar disorder, current episode hypomanic F31.0 Peripheral polyneuropathy G62.9 Peripheral neuropathy type: polyneuropathy, unspecified
[2024-12-30] MEDS: gabapentin 300 mg Capsule PO (17:37)
[2024-12-30] MEDS: potassium chloride ER 20 mEq Tablet 40 MEQ PO ×2 (17:37→22:36)
[2024-12-30] MEDS: quetiapine 300 mg Tablet PO ×2 (17:37→17:57)
[2024-12-30 17:54] LABS: Magnesium 2.4 mg/dL (1.7-2.3); Phosphorus 1.9 mg/dL (2.5-4.5)
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
[2024-12-30] MEDS: enoxaparin 40 mg/0.4 mL Syringe SUBCUT (17:57)
[2024-12-30] MEDS: metoprolol tartrate 25 mg Tablet PO (22:36)
[2024-12-31] VITALS (8 sets, daily range): BP systolic 104–131; BP diastolic 66–83; PULSE 81–105; RESP 16–18; TEMP 36.6–36.8; O2SAT 93–99
--- NOTE | 2024-12-31 | ECG_ITS ---
[facility] Test Date: 2024-12-31 Pat Name: Amber Alvarez Department: Room: 278 Gender: Female Pick Up Attendant: : 1975 Requested By: Radha Grayson Order Number: [id number] Kelsey MD: Radha Grayson M.D. Interpretive Statements Intraprocedure shortess of breath; Symptoms resoled by discharge; Lung unchanged pre/post procedure PROCEDURE: At the baseline, the EKG revealed sinus rhythm with occasional PVCs. Diffuse nonspecific T wave changes. Poor R wave progression.. The baseline heart was 89 bpm with a blood pressue of 122/69 mm of Hg Lexiscan was infused over a period of 20 seconds. A total of 0.4 milligrams of Lexiscan was infused. The stress phase was continued for a total of 5 minutes. Heart rate at the end of the stress phase was 107 bpm with a blood pressure 128/66 mm of Hg. The EKG at the peak infusion revealed no significant changes. Sestamibi was injected 20 seconds after the Lexiscan infusion. Heart rate at the end of the recovery phase was 105 bpm with a blood pressure of 113/72 mm of Hg. CONCLUSION: 1. No significant EKG changes with the LexiScan infusion 2. No LexiScan induced chest pain or cardiac arrhythmia 3. Normal blood pressure and heart rate response 4. Sestamibi/sestamibi perfusion scan pending; see separate report. Electronically Signed On 01-03-2025 10:36:34 CDT by Radha Grayson M.D. [email or web address]
--- NOTE | 2024-12-31 00:57 | NMCV_ITS ---
NM elvis perf SPECT r/s* [id number] Amber Alvarez Age: 49 Gender: F : 1975 Exam Date: 12/31/2024 06:29 Ordering Phys: Radha Grayson MD ([email or web address]) Technologist: DARIUS Wade Exam Location: [facility] Indications: cp STRESS TEST [facility] IMAGE PROTOCOL Rest/Stress 1 Lexiscan Day Radiopharmaceutical Dose (mCi) Administration Site Administered by Rest: Tc-99m 10.8 IV DARIUS Wade Sestamibi Stress:Tc-99m 32.5 IV Roxi Chase, PHARMACY OPERATIONS COORDINATOR Sestamibi Rest: 31-Dec-2024 60 Discovery 630 Stress: 31-Dec-2024 30 Discovery 630 0.4mg Lexiscan. Supine position only as patient was unable to lay prone. SPECT RESULTS Technical Quality: Good Raw Data Analysis: Normal Image Corrections: No attenuation or motion correction applied Summed Stress Score: 0 Summed Rest Score: 0 Summed Difference Score: 0 PERFUSION FINDINGS SPECT images demonstrate homogeneous tracer distribution throughout the myocardium. FUNCTIONAL RESULTS (calculated via Gated SPECT) Stress Image LV EF (%): 74 Stress EDV (mL):69 TID: 0.92 Stress ESV (mL):18 FUNCTIONAL FINDINGS: There is normal left ventricular systolic function. IMPRESSIONS 1. Normal myocardial perfusion imaging with no evidence of ischemia 2. LV systolic function is normal Brian Ruggiero MD (Electronically Signed) Final Date: 31 Dec 2024 08:12 S
--- NOTE | 2024-12-31 04:42 | PC.NURSE ---
Addendum entered by Devora Real LPN 12/31/24 04:45: patient has had no complaints of face numbness or chest pain. patient is running sinus rhythm on the tele monitor. patient has rested quietly for most of this shift. Original Note: patient in bed with eyes closed. this nurse in room to restart IV for morning stress test. this nurse inserted a 22g in patients left hand. flushed with 20ml of normal saline. iv asymptomatic, dry and intact with a veniguard. patient tolerated well
[2024-12-31] MEDS: regadenoson 0.4 Mg/5 ml Syringe IVP (06:56)
[2024-12-31] MEDS: ibuprofen 800 mg tablet PO (08:51)
[2024-12-31] MEDS: sertraline 100 mg Tablet 150 MG PO (08:52)
[2024-12-31] MEDS: ezetimibe 10 mg Tablet PO (08:52)
[2024-12-31] MEDS: potassium chloride ER 20 mEq Tablet 40 MEQ PO (08:52)
[2024-12-31] MEDS: montelukast sodium 10 mg Tablet PO (08:52)
[2024-12-31] MEDS: metoprolol tartrate 25 mg Tablet PO (08:52)
[2024-12-31] MEDS: atorvastatin 40 mg Tablet 20 MG PO (08:52)
[2024-12-31] MEDS: levothyroxine 125 mcg Tablet PO (08:52)
[2024-12-31] MEDS: pantoprazole DR 40 mg Tablet PO (08:52)
[2024-12-31] MEDS: potassium phosphate (mMol PO4) 30 MMOL in sodium chloride 0.9% (100 ml) 100 ML 25 MMOL IV (08:53)
[2024-12-31] MEDS: potassium chloride ER 10 mEq Tablet PO (08:53)
--- NOTE | 2024-12-31 10:15 | P.PN_ITS ---
Subjective 2 Subjective: The patient is feeling okay. No chest pain or shortness of breath today. Vitals are remaining stable Medications: Medication Review Details: Current Medications Albuterol Sulfate (Albuterol 2.5 Mg/3 Ml Neb) 2.5 mg INHALATION Q4H PRN PRN Reason: shortness of breath or wheezing Aminophylline (Aminophylline 25 Mg/Ml Sdv 20 Ml) 25 mg IVP Q2M PRN PRN Reason: see dose instructions Stop: 01/01/25 06:16 Atorvastatin Calcium (Atorvastatin 40 Mg Tablet) 20 mg PO DAILY [facility] Last Admin: 12/31/24 08:52 Dose: 20 mg Ezetimibe (Ezetimibe 10 Mg Tablet) 10 mg PO DAILY [facility] Last Admin: 12/31/24 08:52 Dose: 10 mg Enoxaparin Sodium (Enoxaparin 40 Mg/0.4 Ml Syringe) 40 mg SUBCUT Q24H [facility] Last Admin: 12/30/24 17:57 Dose: 40 mg Gabapentin (Gabapentin 300 Mg Capsule) 300 mg PO QPM [facility] Last Admin: 12/30/24 17:37 Dose: 300 mg Potassium Phosphate 30 mmol/ (Sodium Chloride) 110 mls @ 25 mls/hr IV ONCE ONE Stop: 12/31/24 12:23 Last Admin: 12/31/24 08:53 Dose: 25 mls/hr Ibuprofen (Ibuprofen 800 Mg Tablet) 800 mg PO Q8H PRN PRN Reason: PAIN Last Admin: 12/31/24 08:51 Dose: 800 mg Levothyroxine Sodium (Levothyroxine 125 Mcg Tablet) 125 mcg PO DAILY [facility] Last Admin: 12/31/24 08:52 Dose: 125 mcg Lorazepam (Lorazepam 1 Mg Tablet) 1 mg PO TID PRN PRN Reason: ANXIETY Metoprolol Tartrate (Metoprolol Tartrate 25 Mg Tablet) 25 mg PO BID@0900,2100 [facility] Last Admin: 12/31/24 08:52 Dose: 25 mg Montelukast Sodium (Montelukast Sodium 10 Mg Tablet) 10 mg PO DAILY [facility] Last Admin: 12/31/24 08:52 Dose: 10 mg Nitroglycerin (Nitroglycerin 0.4 Mg Sublingual Tablet) 0.4 mg SUBLINGUAL Q5M PRN PRN Reason: CHEST PAIN Stop: 01/01/25 06:16 Ondansetron HCl (Ondansetron 2 Mg/Ml Sdv 2 Ml) 4 mg IVP Q8H PRN PRN Reason: vomiting, or N/V if npo Ondansetron HCl (Ondansetron 2 Mg/Ml Sdv 2 Ml) 4 mg IVP Q2M PRN PRN Reason: NAUSEA Pantoprazole Sodium (Pantoprazole Dr 40 Mg Tablet) 40 mg PO DAILY [facility] Last Admin: 12/31/24 08:52 Dose: 40 mg Potassium Chloride (Potassium Chloride Er 10 Meq Tablet) 10 meq PO DAILY [facility] Last Admin: 12/31/24 08:53 Dose: 10 meq Quetiapine Fumarate (Quetiapine 300 Mg Tablet) 600 mg PO QPM [facility] Sertraline HCl (Sertraline 100 Mg Tablet) 150 mg PO DAILY [facility] Last Admin: 12/31/24 08:52 Dose: 150 mg Vitals/I&O/Wt Last Vital Signs Temp 98.3 F 12/31/24 08:00 Pulse 100 12/31/24 08:35 Resp 16 12/31/24 08:35 BP 131/83 12/31/24 08:00 Pulse Ox 98 12/31/24 08:35 O2 Del Method Room Air 12/31/24 08:35 12/30/24 12/31/24 12/31/24 22:59 06:59 14:59 Intake Total 540 / 1540 240 / 240 Balance 540 / 1540 240 / 240 Weight last 48 hrs Weight 165 lb Weight 162 lb 9.6 oz Weight 160 lb Physical Exam 2 Narrative: GENERAL: The patient is alert and oriented times three. Not in any acute distress. HEENT: No significant pallor, icterus or lymphadenopathy.Oral cavity: There are no mucous membrane lesions. NECK: Trachea appears to be central. No masses noted. No JVD or thyromegaly appreciated. RESPIRATORY: Chest is symmetrical. No intercostals muscle retraction or any accessory muscle activation. There is no chest wall tenderness. Breath sounds are heard bilaterally. No rales or rhonchi heard. No evidence of any consolidation. BREASTS: Deferred. HEART: The heart sounds are normal. No S3 or S4. No significant murmurs. No pericardial rub ABDOMEN: No vessel pulsations or distention. No tenderness. No organomegaly appreciated. Bowel sounds are normally heard. : Deferred. RECTAL: Deferred. LYMPHATIC: No lymphadenopathy noted in the neck. EXTREMITIES: No edema or cyanosis. No clubbing. MUSCULOSKELETAL: No acute joint deformities or swelling SKIN: There are no significant rashes or ecchymosis NEUROPSYCHIATRIC: The patient is alert and oriented x3. Appears to be in a good mood. No tremors or rigidity noted. Data 12/30/24 09:17 12/30/24 09:17 Other Labs: Laboratory Last Values WBC 8.48 10^3/uL (3.29-11.43) 12/30/24 09:17 RBC 5.62 10^6/uL (3.85-5.65) 12/30/24 09:17 Hgb 17.00 g/dL (11.27-16.99) H 12/30/24 09:17 Hct 50.5 % (36-47) H 12/30/24 09:17 MCV 89.9 fl (85-98) 12/30/24 09:17 MCH 30.2 pg (27-33) 12/30/24 09:17 MCHC 33.7 g/dL (30-55) 12/30/24 09:17 RDW 13.3 % (12.1-15.1) 12/30/24 09:17 Plt Count 257 10^3/cmm (157-399) 12/30/24 09:17 MPV 11.0 fL (7.4-10.4) H 12/30/24 09:17 Neut % (Auto) 69.6 % 12/30/24 09:17 Lymph % (Auto) 18.8 % 12/30/24 09:17 Gillespie % (Auto) 8.8 % 12/30/24 09:17 Eos % (Auto) 1.7 % 12/30/24 09:17 Baso % (Auto) 0.6 % 12/30/24 09:17 Neut # (Auto) 5.91 10^3/uL (1.8-7.7) 12/30/24 09:17 Lymph # (Auto) 1.6 10^3/uL (0.8-4.8) 12/30/24 09:17 Gillespie # (Auto) 0.8 10^3/uL (0.2-0.9) 12/30/24 09:17 Eos # (Auto) 0.1 10^3/uL (0.0-0.8) 12/30/24 09:17 Baso # (Auto) 0.1 10^3/uL (0.0-0.1) 12/30/24 09:17 Nucleated RBC % (auto) 0 % 12/30/24 09:17 Nucleated RBCs # 0.0 /100WBC 12/30/24 09:17 Specimen Type Arterial 12/30/24 09:13 Sample Site Radial, right 12/30/24 09:13 ABG pH 7.57 (7.35-7.45) H* 12/30/24 09:13 ABG pCO2 18.4 mmHg (35-45) L* 12/30/24 09:13 ABG pO2 128.0 mmHg (80.0-100.0) H 12/30/24 09:13 ABG PO2/FiO2 Ratio 609 12/30/24 09:13 ABG HCO3 16.9 mmol/L (22-26) L 12/30/24 09:13 ABG O2 Saturation 98.3 12/30/24 09:13 ABG Base Excess -1.9 mmol/L (-2.0-2.0) 12/30/24 09:13 Marek Test Pos 12/30/24 09:13 A-a O2 Gradient Not Reportable 12/30/24 09:13 Hematocrit 50.9 % (37-47) H 12/30/24 09:13 Hgb O2 Saturation 96.1 % (95-100) 12/30/24 09:13 Carboxyhemoglobin 2.3 %THgb (0.4-20.1) 12/30/24 09:13 Methemoglobin 0.0 % (0.4-1.5) L 12/30/24 09:13 Total Hemoglobin 16.6 g/dL (12-16) H 12/30/24 09:13 Sodium 136.0 mmol/L (131-143) 12/30/24 09:13 Potassium 3.1 mmol/L (3.5-5.0) L 12/30/24 09:13 Glucose 97.0 mg/dL (70-115) 12/30/24 09:13 Ionized Calcium 1.2 mmol/L (1.1-1.4) 12/30/24 09:13 O2 Delivery Device None 12/30/24 09:13 FiO2 21.0 % 12/30/24 09:13 Heading Saw Operator ID [email or web address] 12/30/24 09:13 Sodium 136 mmol/L (136-145) 12/30/24 09:17 Potassium 3.3 mmol/L (3.5-5.1) L 12/30/24 09:17 Chloride 94 mmol/L (98-107) L 12/30/24 09:17 Carbon Dioxide 20 mmol/L (22-29) L 12/30/24 09:17 Anion Gap 25.3 (5-19) H 12/30/24 09:17 BUN 24 mg/dL (6-20) H 12/30/24 09:17 Creatinine 1.1 mg/dL (0.5-0.9) H 12/30/24 09:17 GFR Calculation 52.4 mL/min (90-130) L 12/30/24 09:17 Glucose 92 mg/dL (65-115) 12/30/24 09:17 Calculated Osmolality 286 mOsm/kg (285-295) 12/30/24 09:17 Calcium 10.5 mg/dL (8.5-10.5) 12/30/24 09:17 Phosphorus 1.9 mg/dL (2.5-4.5) L 12/30/24 09:17 Magnesium 2.4 mg/dL (1.7-2.3) H 12/30/24 09:17 Total Bilirubin 0.5 mg/dL (0.15-1.2) 12/30/24 09:17 AST 16 U/L (0-32) 12/30/24 09:17 ALT 18 U/L (0-33) 12/30/24 09:17 Alkaline Phosphatase 189 U/L (35-105) H 12/30/24 09:17 Troponin T Baseline < 6 ng/L (0-10) 12/30/24 09:17 Troponin T 120 Minute < 6.0 ng/L (0-10) 12/30/24 10:58 Delta Troponin T 0 ABS# (0-10) 12/30/24 10:58 Total Protein 8.9 g/dL (6.6-8.7) H 12/30/24 09:17 Albumin 5.1 g/dL (3.5-5.2) 12/30/24 09:17 Globulin 3.8 g/dL (1.3-4.6) 12/30/24 09:17 Other data: Myocardial perfusion imaging from today 1. Normal myocardial perfusion imaging with no evidence of ischemia 2. LV systolic function is normal A&P Assessment and plan (1) Abnormal EKG: No significant ischemia, based on the perfusion scan (2) SOB (shortness of breath): Most likely from the COPD (3) Heartburn: May benefit from GI workup as outpatient (4) Palpitations: Patient has a history of SVT. Currently she has sinus tachycardia. At this point, may continue on the current medications. (5) Bipolar disorder, current episode hypomanic: Management as per the primary (6) Peripheral neuropathy: Management as per the primary. Plan The results of the Myocardial perfusion imaging and implications were discussed with the patient in detail which is understood well. Since the patient has no ongoing chest symptoms, it may be appropriate to hold off on any further investigations at this time. If she continues to remain stable, may be discharged home from a cardiac standpoint. The limitations of the stress test were also discussed with the patient . May see her in the office in 2 weeks by the nurse practitioner PDMP PDMP Reviewed: Not Reviewed Attestations 2 Medical Necessity Statement*: Deferred to the prior Coding Level of Care Code 21456 Diagnoses Abnormal EKG R94.31 SOB (shortness of breath) R06.02 Heartburn R12 Palpitations R00.2 Bipolar disorder, current episode hypomanic F31.0 Peripheral polyneuropathy G62.9 Peripheral neuropathy type: polyneuropathy, unspecified
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
== END 2024-12-31 12:30 | disposition home or self-care (01) ==
LOC: ER 12:04 → MEDSURG 13:53
PROVIDERS: Admitting Provider Internal Medicine; Emergency Provider Family Medicine; PCP Nurse Practitioner Family; Visit Provider Internal Medicine
DX: R00.2 Palpitations (principal); R94.31 Abnormal electrocardiogram [ECG] [EKG]; R06.02 Shortness of breath; R12 Heartburn; R31.0 Gross hematuria; G62.9 Polyneuropathy, unspecified; K21.9 Gastro-esophageal reflux disease without esophagitis; Z82.49 Family history of ischemic heart disease and other diseases of the circulatory system; F17.210 Nicotine dependence, cigarettes, uncomplicated; E03.9 Hypothyroidism, unspecified; Z87.820 Personal history of traumatic brain injury; J44.9 Chronic obstructive pulmonary disease, unspecified; F41.9 Anxiety disorder, unspecified; F02.80 Dementia in other diseases classified elsewhere, unspecified severity, without behavioral disturbance, psychotic disturbance, mood disturbance, and anxiety; L93.2 Other local lupus erythematosus; F31.0 Bipolar disorder, current episode hypomanic; F12.90 Cannabis use, unspecified, uncomplicated; E83.39 Other disorders of phosphorus metabolism; G47.00 Insomnia, unspecified
CPT/HCPCS: 36415; 36600; 70450; 78452; 80051; 80053; 82330; 82805; 83735; 84100; 84484; 85025; 93005; 93017; 96372; 96374; 99285; A9500; G0378; J1650; J2060; J2785; J7030; J9999

== ENCOUNTER → 2025-01-04 10:22 | Outpatient (BNVA) | payer MEDICARE, SELFPAY | PROVIDERS: PCP Nurse Practitioner Family; Visit Provider Orthopaedic Surgery | DX: S82.044A Nondisplaced comminuted fracture of right patella, initial encounter for closed fracture (principal); X58.XXXA Exposure to other specified factors, initial encounter | CPT/HCPCS: 73562; 99213 ==

== ENCOUNTER → 2025-01-25 08:15 | Outpatient (BNVA) | payer MEDICARE, SELFPAY | PROVIDERS: PCP Nurse Practitioner Family; Visit Provider Orthopaedic Surgery | DX: S82.044D Nondisplaced comminuted fracture of right patella, subsequent encounter for closed fracture with routine healing (principal); X58.XXXD Exposure to other specified factors, subsequent encounter | CPT/HCPCS: 73562; 99213 ==

== ENCOUNTER → 2025-06-30 15:22 | Outpatient (BNVA) | payer MEDICARE, SELFPAY | PROVIDERS: PCP Nurse Practitioner Family; Visit Provider Orthopaedic Surgery | DX: Z01.818 Encounter for other preprocedural examination (principal); S82.044A Nondisplaced comminuted fracture of right patella, initial encounter for closed fracture; W19.XXXA Unspecified fall, initial encounter | CPT/HCPCS: 36415; 73560; 73565; 81001; 85025; 87077; 87086; 87186; 99214 ==

== ENCOUNTER 2025-07-01 09:18 | Outpatient (CLI) | payer MEDICARE, SELFPAY ==
[2025-07-01 10:24] LABS: Alanine Aminotransferase 12 U/L (0-33); Albumin Level 4.4 g/dL (3.5-5.2); Alkaline Phosphatase 145 U/L (35-105); Aspartate Amino Transferase 11 U/L (0-32); Blood Urea Nitrogen 9 mg/dL (6-20); Calcium 9.3 mg/dL (8.5-10.5); Carbon Dioxide 26 mmol/L (22-29); Chloride 105 mmol/L (98-107); Globulin 3.6 g/dL (1.3-4.6); Glucose 107 mg/dL (65-115); Osmolality Calculated 295 mOsm/kg (285-295); Sodium 143 mmol/L (136-145); Total Protein 8.0 g/dL (6.6-8.7)
[2025-07-01 10:25] LABS: Anion Gap 15.9 (5-19); Potassium 3.9 mmol/L (3.5-5.1)
== END 2025-07-01 09:19 | disposition home or self-care (01) ==
PROVIDERS: PCP Nurse Practitioner Family; Visit Provider Orthopaedic Surgery
DX: Z01.818 Encounter for other preprocedural examination (principal)
CPT/HCPCS: 36415; 80053